=== PATIENT | male | born 1995 | race Caucasian/White ===

== ENCOUNTER → 2017-07-03 08:52 | Outpatient (CLI) | payer OTHER, SELFPAY ==
[2017-07-03 10:51] LABS: ALB/GLOB Ratio 1.2 RATIO (0.9-2.4); AST(SGOT) 19 U/L (15-37); Alanine Aminotransfer ALT/SGPT 39 U/L (16-61); Alkaline Phosphatase 147 U/L (45-117); Anion Gap 7 (5-15); BUN 24 mg/dL (7-18); BUN/Creat Ratio 27.6 RATIO (10-20); Calcium,Total 8.8 mg/dL (8.5-10.1); Chloride 102 mmol/L (98-107); Creatinine, Serum 0.87 mg/dL (0.70-1.30); EST Glomerular Filtration Rate 117 mL/min (>60); Est Glom Filt Rate - Afr Amer 141 mL/min (>60); Globulin 3.4 g/dL (2.2-4.2); Glucose 313 mg/dL (74-106); Potassium 4.4 mmol/L (3.5-5.1); Protein, Total 7.4 g/dL (6.4-8.2); Sodium Level 138 mmol/L (136-145)
[2017-07-03 10:54] LABS: Hemoglobin A1c 9.2 % (4.2-6.3)
[2017-07-03 10:58] LABS: Microalbumin,Random Urine 6.4 mg/L (NO RANGE EST.); Microalbumin:Creatinine Ratio 11.6 mg/g CRE (<30 mg/g CRE)
== END ==
PROVIDERS: Family Provider Family Medicine; PCP Family Medicine; Visit Provider Nurse Practitioner
DX: E10.9 Type 1 diabetes mellitus without complications (principal)
CPT/HCPCS: 36415; 80053; 82043; 82570; 83036

== ENCOUNTER → 2018-04-28 15:56 | Outpatient (CLI) | payer OTHER, SELFPAY ==
[2018-04-28 15:09] VITALS: BMI 31.6
[2018-04-28 17:51] LABS: ALB/GLOB Ratio 1.2 RATIO (0.9-2.4); AST(SGOT) 19 U/L (15-37); Alanine Aminotransfer ALT/SGPT 32 U/L (16-61); Albumin, Serum 4.3 g/dL (3.2-5.0); Alkaline Phosphatase 153 U/L (45-117); Anion Gap 7 (5-15); BUN 18 mg/dL (7-18); BUN/Creat Ratio 20.8 RATIO (10-20); Calcium,Total 9.1 mg/dL (8.5-10.1); Chloride 104 mmol/L (98-107); Cholesterol 231 mg/dL (200); Creatinine, Serum 0.87 mg/dL (0.70-1.30); EST Glomerular Filtration Rate 117 mL/min (>60); Est Glom Filt Rate - Afr Amer 141 mL/min (>60); Globulin 3.5 g/dL (2.2-4.2); Glucose 216 mg/dL (74-106); High Density Lipoprotein 50 mg/dL; Protein, Total 7.8 g/dL (6.4-8.2); Sodium Level 140 mmol/L (136-145); Triglycerides 139 mg/dL; Very Low Density Lipoprotein 28 mg/dL (5-40)
[2018-04-28 17:59] LABS: Hemoglobin A1c 8.9 % (4.2-6.3)
[2018-04-28 18:06] LABS: Microalbumin,Random Urine 40.5 mg/L (NO RANGE EST.); Microalbumin:Creatinine Ratio 15.3 mg/g CRE (<30 mg/g CRE)
== END ==
PROVIDERS: Family Provider Family Medicine; PCP Family Medicine; Referring Provider Nurse Practitioner; Visit Provider Nurse Practitioner
DX: E10.65 Type 1 diabetes mellitus with hyperglycemia (principal)
CPT/HCPCS: 36415; 80053; 80061; 82043; 82570; 83036

== ENCOUNTER → 2018-12-31 14:16 | Outpatient (CLI) | payer OTHER, SELFPAY ==
[2018-12-30 16:13] VITALS: BMI 31.6
== END ==
PROVIDERS: Family Provider Family Medicine; PCP Family Medicine; Referring Provider Physician Assistant; Visit Provider Physician Assistant
DX: J02.9 Acute pharyngitis, unspecified (principal)
CPT/HCPCS: 87070

== ENCOUNTER → 2019-06-13 15:47 | Outpatient (CLI) | payer OTHER, SELFPAY ==
[2018-12-30 16:13] VITALS: BMI 31.6
--- NOTE | 2019-06-13 15:51 | RAD_ITS ---
STUDY: X-RAY - LEFT ANKLE REASON FOR EXAM: Male, 23 years old. FALL, LATERAL PAIN TECHNIQUE: 3 view(s) of the ankle. COMPARISON: None. FINDINGS: Normal visualized distal tibia and fibula. Normal medial and lateral malleoli. Normal tibiotalar articulation and ankle mortise. Normal visualized talus and calcaneus. The visualized subtalar, talonavicular, calcaneocuboid and tarsal articulations are normal. There is no demonstrated fracture. There is diffuse soft tissue swelling of the distal calf and ankle. RAD/Ankle min 3 Views IMPRESSION: Nonspecific soft tissue swelling otherwise unremarkable x-ray examination of the ankle. Electronically Signed: Lelo Hardy MD at 0:23 EDT , Service support ,
[2019-06-13 18:21] LABS: Hemoglobin A1c 8.6 % (4.2-6.3)
[2019-06-13 18:25] LABS: Microalbumin,Random Urine 9.7 mg/L (NO RANGE EST.)
[2019-06-13 18:30] LABS: ALB/GLOB Ratio 1.1 RATIO (0.9-2.4); AST(SGOT) 19 U/L (15-37); Alanine Aminotransfer ALT/SGPT 33 U/L (16-61); Albumin, Serum 4.1 g/dL (3.2-5.0); Alkaline Phosphatase 149 U/L (45-117); Anion Gap 4 (5-15); BUN 17 mg/dL (7-18); BUN/Creat Ratio 19.3 RATIO (10-20); Calcium,Total 9.3 mg/dL (8.5-10.1); Chloride 107 mmol/L (98-107); Cholesterol 229 mg/dL (200); Creatinine, Serum 0.88 mg/dL (0.70-1.30); EST Glomerular Filtration Rate 113 mL/min (>60); Est Glom Filt Rate - Afr Amer 137 mL/min (>60); Globulin 3.6 g/dL (2.2-4.2); Glucose 236 mg/dL (74-106); High Density Lipoprotein 42 mg/dL; Potassium 3.8 mmol/L (3.5-5.1); Protein, Total 7.7 g/dL (6.4-8.2); Sodium Level 137 mmol/L (136-145); Triglycerides 235 mg/dL; Very Low Density Lipoprotein 47 mg/dL (5-40)
== END ==
PROVIDERS: PCP Family Medicine; Referring Provider Surgery; Visit Provider Surgery
DX: E10.65 Type 1 diabetes mellitus with hyperglycemia (principal); M25.572 Pain in left ankle and joints of left foot; S93.402A Sprain of unspecified ligament of left ankle, initial encounter; X58.XXXA Exposure to other specified factors, initial encounter; Y93.9 Activity, unspecified; Y92.9 Unspecified place or not applicable; Y99.9 Unspecified external cause status
CPT/HCPCS: 36415; 73610; 80053; 80061; 82043; 83036

== ENCOUNTER → 2020-10-30 15:45 | Outpatient (CLI) | payer OTHER, SELFPAY ==
[2020-10-30 17:24] LABS: ALB/GLOB Ratio 1.1 RATIO (0.9-2.4); AST(SGOT) 17 U/L (15-37); Alanine Aminotransfer ALT/SGPT 27 U/L (16-61); Albumin, Serum 4.2 g/dL (3.2-5.0); Alkaline Phosphatase 133 U/L (45-117); Anion Gap 7 (5-15); BUN 19 mg/dL (7-18); BUN/Creat Ratio 22.4 RATIO (10-20); Calcium,Total 9.3 mg/dL (8.5-10.1); Chloride 106 mmol/L (98-107); Cholesterol 202 mg/dL (200); Creatinine, Serum 0.85 mg/dL (0.70-1.30); EST Glomerular Filtration Rate 117 mL/min (>60); Est Glom Filt Rate - Afr Amer 141 mL/min (>60); Globulin 3.7 g/dL (2.2-4.2); Glucose 158 mg/dL (74-106); High Density Lipoprotein 46 mg/dL; Potassium 3.9 mmol/L (3.5-5.1); Protein, Total 7.9 g/dL (6.4-8.2); Sodium Level 139 mmol/L (136-145); Thyroid Stim Hormone (TSH) 2.76 uIU/mL (0.358-3.74); Triglycerides 72 mg/dL; Very Low Density Lipoprotein 14 mg/dL (5-40)
[2020-10-30 17:30] LABS: Microalbumin,Random Urine 24.5 mg/L (NO RANGE EST.); Microalbumin:Creatinine Ratio 18.4 mg/g CRE (<30 mg/g CRE)
== END ==
PROVIDERS: PCP Family Medicine; Referring Provider Internal Medicine Endocrinology, Diabetes & Metabolism; Visit Provider Internal Medicine Endocrinology, Diabetes & Metabolism
DX: E10.65 Type 1 diabetes mellitus with hyperglycemia (principal); E78.2 Mixed hyperlipidemia; E55.9 Vitamin D deficiency, unspecified
CPT/HCPCS: 36415; 80053; 80061; 82043; 82306; 82570; 84443

== ENCOUNTER 2021-07-31 23:22 | Inpatient (IN) | payer OTHER, SELFPAY ==
[2021-07-31 23:23] VITALS: BP 149/89; PULSE 130; RESP 18; TEMP 36.7; O2SAT 99; BMI 29.2
[2021-08-01] VITALS (30 sets, daily range): BP systolic 102–157; BP diastolic 54–109; PULSE 82–120; RESP 14–25; TEMP 35.9–37.1; O2SAT 97–100; BMI 28.9
--- NOTE | 2021-08-01 00:39 | EX.ED.DYSGE1 ---
HPI History of Present Illness Chief Complaint: Nausea/Vomiting Narrative Narrative: Patient is a 25-year-old male who is a type I diabetic who uses an insulin pump. He states this early evening he noted some generalized abdominal discomfort which then progressed to 5-6 episodes of vomiting about 1 hour prior to arrival. Patient states his pump's been functioning as it should but with his symptoms today he has been unable to keep his sugar under control. He states he was in DKA about 10 years ago and has concerned he is developing this once again and therefore comes in for evaluation. He denies any known sick contacts any fevers chills diarrhea or dysuria. [facility] Medical History (Updated 08/01/21 @ 05:[address] Blake Ames DO) Diabetes type 1, controlled H/O emotional problems Hepatitis High cholesterol Lipohypertrophy Presence of insulin pump Home Medications glucagon (human recombinant) 1 mg injection kit (Glucagon Emergency Kit (human-recomb)) 1 mg IM ONCE 05/27/17 [History Last Taken Unknown] Contour Next Test Strips (blood sugar diagnostic) #250 ea 05/11/18 [Rx Last Taken Unknown] flash glucose sensor (FreeStyle Severiano 14 Day Sensor) #2 ea 09/16/19 [Rx Last Taken Unknown] flash glucose scanning reader (FreeStyle Severiano 14 Day [place]) #2 ea 04/09/20 [Rx Last Taken Unknown] insulin lispro 100 unit/mL subcutaneous solution (Humalog U-100 Insulin) See Rx Instructions subcut QDAY e10.9 #9 mL 03/12/21 [Rx Last Taken Unknown] venlafaxine 150 mg capsule,extended release 24 hr (Effexor XR) 150 mg PO Check with primary doctor 08/01/21 [History Last Taken 07/31/21] Allergy/AdvReac Type Severity Reaction Status Date / Time No Known Allergies Allergy Verified 07/31/21 23:25 Family History Father Hypertension Chronic headaches Mother Thyroid disorder Depression Other CVA (cerebral vascular accident) Cancer Heart disease Surgical History H/O adenoidectomy History of placement of ear tubes Social History Smoking Status: Never smoker second hand exposure: No alcohol intake: current alcohol intake frequency: holidays/special occasions only substance use type: does not use what type of physical activity do you participate in: none ROS ROS ED Constitutional Constitutional ED: Denies chills or fever(s) ENT ENT ED: Denies sore throat Cardiovascular Cardiovascular: Denies chest pain Respiratory/Chest Respiratory/Chest: Denies cough or dyspnea Gastrointestinal Gastrointestinal: Reports abdominal pain, nausea and vomiting; Denies diarrhea Genitourinary Genitourinary ED: Denies dysuria Musculoskeletal Musculoskeletal: Denies myalgias Integumentary Denies rash Neurologic Neurologic: Denies headache(s) Hematologic/Lymphatic Hematologic/Lymphatic: Denies easy bleeding or easy bruising EXAM Physical Exam Const Vital Signs: 07/31/21 23:23 08/01/21 01:00 08/01/21 02:00 Temperature 98.0 F Temperature Source Temporal Pulse Rate 130 H 107 H 106 H Respiratory Rate 18 18 20 H Blood Pressure 149/89 H 114/58 L 148/72 H Blood Pressure Mean 109 76 97 Pulse Ox 99 100 100 Oxygen Delivery Method Room Air Room Air Room Air Positive well nourished and well developed General Appearance ED: well developed HEENT Reports dry mucous membranes Mouth ED: Yes dry mucous membranes Mouth: dry mucous membranes Eyes PERRL and EOMs intact bilaterally Neck supple Resp normal respiratory effort and clear to auscultation bilaterally Cardio regular rhythm Rate: tachycardic GI non-tender and non-distended Auscultation: hyperactive bowel sounds Palpation: soft Extremity normal to inspection Neuro oriented x3 and CN's II-XII intact bilaterally Sensorium / Orientation: alert Psych mental status grossly normal Skin no rashes or lesions noted and No skin turgor normal MDM MDM MDM Narrative Medical decision making narrative: Presented to the ER tachycardic but otherwise afebrile. He reported elevated blood sugars at home with bouts of vomiting and did have a remote history of DKA. Secondary to this there is concern for this developing once again and basic blood work was ordered. The patient's white count is drastically elevated at 23.5 with elevated absolute neutrophil count as well. This is most likely related to stress response from DKA but based on his report of abdominal pain prior to symptoms beginning I did elect to perform a chest x-ray and abdominal CT. X-ray revealed no obvious infiltrate and CT showed changes consistent with colitis but he has not been having any diarrhea. However based on the white count and the CT scan read he will be started on Zosyn. The patient's ABG does confirm acidosis with pH of 7.27 and his anion gap is elevated as well all consistent with DKA. Patient was given 2 L of fluid hydration and started on an insulin drip. He will be admitted to the ICU for further care. Lab Data Attestation: I reviewed the patient's lab results. Labs: Laboratory Results - last 24 hr 08/01/21 08/01/21 08/01/21 00:30 00:40 00:40 WBC 23.5 H RBC 5.67 Hgb 16.9 H Hct 50.8 MCV 89.6 MCH 29.8 MCHC 33.3 RDW Std Deviation 38.5 RDW Coeff of Alondra 11.7 Plt Count 271 MPV 10.6 Immature Gran % (Auto) 1.100 H Neut % (Auto) 83.8 H Lymph % (Auto) 8.7 L [place] % (Auto) 6.1 Eos % (Auto) 0.1 Baso % (Auto) 0.2 Absolute Neuts (auto) 19.7 H Absolute Lymphs (auto) 2.03 Nucleated RBC % 0 Sodium 133 L Potassium 4.7 Chloride 99 Carbon Dioxide 11.0 L Anion Gap 23 H BUN 21 H Creatinine 1.28 Estim Creat Clear Calc 79.61 Est GFR (MDRD) Af Amer 87 Est GFR (MDRD) Non-Af 72 BUN/Creatinine Ratio 16.4 Glucose 483 H* Lactic Acid Calcium 9.7 Total Bilirubin 0.90 Direct Bilirubin 0.36 H AST 15 ALT 28 Alkaline Phosphatase 185 H Total Protein 8.5 H Albumin 4.9 Globulin 3.6 Lipase 32 L Urine Color Urine Clarity Urine pH Ur Specific [place] Urine Protein Urine Glucose (UA) Urine Ketones Urine Occult Blood Urine Nitrite Urine Bilirubin Urine Urobilinogen Ur Leukocyte Esterase Urine RBC Urine WBC Ur Squamous Epith Cells Urine Bacteria Urine Mucus Acetone Level POC Glucose > 500 H* 08/01/21 08/01/21 08/01/21 00:40 00:40 00:54 WBC RBC Hgb Hct MCV MCH MCHC RDW Std Deviation RDW Coeff of Alondra Plt Count MPV Immature Gran % (Auto) Neut % (Auto) Lymph % (Auto) [place] % (Auto) Eos % (Auto) Baso % (Auto) Absolute Neuts (auto) Absolute Lymphs (auto) Nucleated RBC % Sodium Potassium Chloride Carbon Dioxide Anion Gap BUN Creatinine Estim Creat Clear Calc Est GFR (MDRD) Af Amer Est GFR (MDRD) Non-Af BUN/Creatinine Ratio Glucose Lactic Acid 5.5 H* Calcium Total Bilirubin Direct Bilirubin AST ALT Alkaline Phosphatase Total Protein Albumin Globulin Lipase Urine Color Yellow Urine Clarity Clear Urine pH 5.0 Ur Specific [place] 1.020 Urine Protein 30 H Urine Glucose (UA) 1000 H Urine Ketones 150 A* Urine Occult Blood Negative Urine Nitrite Negative Urine Bilirubin Negative Urine Urobilinogen Normal Ur Leukocyte Esterase Negative Urine RBC 0 SEEN Urine WBC 0 SEEN Ur Squamous Epith Cells 0 SEEN Urine Bacteria 0 SEEN Urine Mucus 0 SEEN Acetone Level MODERATE H POC Glucose ABG Data ABG results: ABG 08/01/21 00:48 Specimen Type ART Sample Site L Radial pH 7.28 L Bicarbonate Actual 9.6 L Total CO2 10 Base Excess -17 L O2 Saturation 98 ABG pCO2 20.6 L ABG pO2 114 H Bryn Test Positive O2 Delivery Device Room Air Radiography Diagnostic Testing: Clinical Impression(s) from Imaging Studies Abdomen/Pelvis CT 08/01/21 01:01 IMPRESSION: Acute colitis involving predominantly the ascending through transverse colon, most likely inflammatory or infectious etiology. Electronically Signed: Suzette Barfield MD at 2:01 EDT , Chest X-Ray 08/01/21 01:01 IMPRESSION: No acute pulmonary disease. Electronically Signed: Manuel Batres MD at 2:04 EDT , 1 view chest x-ray as interpreted by the emergency medicine physician reveals no acute infiltrate pneumothorax or pleural effusion Critical Care Time Critical Care Time: Yes Critical care time (excluding procedures): - (Please note critical care time of 33 minutes) Discharge Plan Dx/Rx/DC Orders Clinical Impression: DKA (diabetic ketoacidoses), Nausea and vomiting, Dehydration Disposition Disposition: [facility] Discharge Date/Time: 08/01/21 04:02
[2021-08-01] MEDS: Ondansetron 4 MG/2 ML Vial IV ×2 (00:44→03:00)
[2021-08-01] MEDS: 0.9% Normal Saline 1,000 ML 999 ML IV ×2 (00:44→02:03)
[2021-08-01 00:56] LABS: Allen Test Positive; Base Excess -17 mmol/L (-2 to +2); Bicarbonate 9.6 mmol/L (22-26); Blood Gas Specimen Type ART; O2 Delivery Device Room Air; PO2 114 mmHG (75-100); SITE L Radial; SO2 98 % (95-99); Total Carbon Dioxide 10 mmol/L; pCO2 20.6 mmHg (35-45); pH 7.28 (7.35-7.45)
[2021-08-01 00:56] LABS: Absolute Lymphocyte Count 2.03 X10^3/uL (0.83-4.51); Absolute Neutrophil Count 19.7 X10^3/uL (2.0-7.7); Basophil# 0.05 X10^3/uL; Basophil% 0.2 % (0-1); Eosinophil# 0.02 X10^3/uL; Eosinophils% 0.1 % (0-5); Hematocrit 50.8 % (40-54); Hemoglobin 16.9 g/dL (13.0-16.5); Lymphocyte # 2.03 X10^3/ul (0.83-4.51); Lymphocyte % 8.7 % (19-41); Mean Corp Hgb Conc 33.3 g/dL (32-36); Mean Corpuscular Hgb 29.8 pg (27.0-32.0); Mean Corpuscular Volume 89.6 fL (80-94); Mean Platelet Vol. 10.6 fl (6.2-12.0); Monocyte# 1.42 X10^3/uL; Monocyte% 6.1 % (0-10); NRBC Flagged by Analyzer 0 % (0-5); Neutrophil # 19.69 X10^3/uL (2.7-7.7); Neutrophil % 83.8 % (47-70); Platelet Count 271 K/mm3 (150-450); RBC Distribution Width CV 11.7 % (11.6-14.6); RBC Distribution Width SD 38.5 fl (35.1-43.9); Red Blood Count 5.67 M/mm3 (4.6-6.2); White Blood Count 23.5 K/mm3 (4.4-11.0)
[2021-08-01 00:59] LABS: Bacteria 0 SEEN /hpf (None Seen); Mucous, Urine 0 SEEN /hpf (<or=2+); Red Blood Cells-Urine 0 SEEN /hpf (0-5); Squamous Epithelial Cells - UA 0 SEEN /hpf (0-5); White Blood Cells 0 SEEN /hpf (0-5)
[2021-08-01 01:00] LABS: Color, Urine Yellow (Yellow); Glucose, Dipstick 1000 mg/dl (Normal); Leukocyte Esterase-Dipstick Negative /ul (Negative); Nitrite-Dipstick Negative (Negative); Occult Blood-Urine Negative /ul (Negative); Protein-Dipstick 30 mg/dl (Negative); Urine Bilirubin Dipstick Negative (Negative); Urine Clarity Clear (Clear); Urine Urobilinogen Normal (Normal)
--- NOTE | 2021-08-01 01:01 | RAD_ITS ---
INDICATION: cough EXAMINATION: Frontal view of the chest COMPARISON: None. FINDINGS: Frontal view of the chest was obtained. The cardiac silhouette is not enlarged. No confluent airspace disease. No pneumothorax. RAD/Chest 1 View (Portable) IMPRESSION: No acute pulmonary disease. Electronically Signed: Manuel Batres MD at 2:04 EDT ,
--- NOTE | 2021-08-01 01:01 | CT_ITS ---
STUDY: CT ABDOMEN AND PELVIS WITH CONTRAST REASON FOR EXAM: Male, 25 years old. abd pain RADIATION DOSAGE (If Supplied By Facility): CTDIvol = ( 14.07 ) mGy, DLP = ( 962.82 ) mGycm TECHNIQUE: Transaxial images were obtained from the dome of the diaphragm to the symphysis pubis without oral contrast. ISOVUE 300 100ml was administered. Sagittal and coronal images were reconstructed. Individualized dose optimization techniques were used for this CT. COMPARISON: None. FINDINGS: LOWER CHEST: Unremarkable. LIVER: Unremarkable. GALLBLADDER/BILE DUCTS: Unremarkable. PANCREAS: Unremarkable. SPLEEN: Unremarkable. ADRENAL GLANDS: Unremarkable. KIDNEYS / URETERS: Unremarkable. BOWEL / MESENTERY: Colonic wall thickening from the ascending through mid descending colon. Mild adjacent stranding. No bowel obstruction. Prominent lymph nodes in the mesentery. APPENDIX: Identified and normal. No evidence of acute appendicitis. PERITONEUM: No free air. No free fluid. VESSELS: Abdominal aorta is normal caliber. RETROPERITONEUM: A few prominent retroperitoneal lymph nodes. REPRODUCTIVE ORGANS: Unremarkable. BLADDER: Unremarkable. ABDOMINAL WALL: Unremarkable. BONES: No acute abnormality. OTHER: None. CT/Abdomen/Pelvis W IV Cont ONLY IMPRESSION: Acute colitis involving predominantly the ascending through transverse colon, most likely inflammatory or infectious etiology. Electronically Signed: Suzette Barfield MD at 2:01 EDT ,
[2021-08-01 01:11] LABS: AST(SGOT) 15 U/L (15-37); Alanine Aminotransfer ALT/SGPT 28 U/L (16-61); Albumin, Serum 4.9 g/dL (3.2-5.0); Alkaline Phosphatase 185 U/L (45-117); Anion Gap 23 (5-15); BUN 21 mg/dL (7-18); BUN/Creat Ratio 16.4 RATIO (10-20); Bilirubin, Direct 0.36 mg/dL (0.00-0.30); Calcium,Total 9.7 mg/dL (8.5-10.1); Chloride 99 mmol/L (98-107); Creatinine, Serum 1.28 mg/dL (0.70-1.30); EST Glomerular Filtration Rate 72 mL/min (>60); Est Glom Filt Rate - Afr Amer 87 mL/min (>60); Estimated Creatinine Clearance 79.61 ml/min; Globulin 3.6 g/dL (2.2-4.2); Glucose 483 mg/dL (74-106); Lipase 32 U/L (73-393); Potassium 4.7 mmol/L (3.5-5.1); Protein, Total 8.5 g/dL (6.4-8.2); Sodium Level 133 mmol/L (136-145)
[2021-08-01 01:31] LABS: Bedside Glucose > 500 mg/dL (74-106)
[2021-08-01 01:34] LABS: Lactic Acid 5.5 mmol/L (0.4-1.9)
[2021-08-01 02:02] LABS: Ketone-Dipstick 150 mg/dl (Negative)
--- NOTE | 2021-08-01 03:03 | PCM.HP.STD ---
HPI - General General Date of Admission: 08/01/21 Date of Service: 08/01/21 Chief Complaint: Nausea and vomiting HPI Narrative ASHLEY FERRARI, is a 25 M with a known history of type 1 diabetes on an insulin pump who presented to the emergency department at [facility] with generalized abdominal discomfort which progressed to nausea and vomiting this evening. States the abdominal pain started earlier today and has had 5-6 episodes of emesis prior to coming to the emergency department. He states that his insulin pump has been functioning well however when I questioned him he states his site might be bad. He indicates his last hemoglobin's A1c was in the 7 range. He follows with Dr. Jimenez as an outpatient. His last Depakote sewed of DKA was approximately 10 years ago. He denies any sick contacts, fevers, chills, diarrhea, dysuria, hematemesis or coffee-ground emesis. On presentation to the emergency department his temperature was 98.0, heart rate was 130, blood pressure is 149/89, respiratory rate 18, and oxygen saturations 99 to 100% on room air. His CBC shows a marked leukocytosis and erythrocytosis with a white count of 23.5 and a hemoglobin of 16.9. He does have a left shift. ABG showed a pH of 7.28 with a serum bicarb of 9.6/PCO2 of 20.6 and PO2 of 114 on room air. His chemistry panel showed mild hyponatremia with a sodium of 133 a serum bicarb of 11, and anion gap of 23, a BUN of 21, a serum creatinine of 1.28, lactic acid of 5.5, and a serum glucose of 4.83. His LFTs were within normal limits and his lipase was 32. His UA was unremarkable other than glucose urea and elevated ketones. His acetone level in his blood was moderate. His chest x-ray showed no acute pulmonary disease. Given his abdominal pain, a CT of his abdomen and pelvis was performed and showed acute colitis involving predominantly the ascending through transverse colon with changes consistent with inflammation or infectious etiology. In the emergency department he was given IV fluids and started on an insulin drip. His nausea vomiting was also treated with antiemetics. [facility] Medical History (Updated 08/01/21 @ 03:[address] Carole Chao DO) Diabetes type 1, controlled H/O emotional problems Hepatitis High cholesterol Lipohypertrophy Presence of insulin pump Home Medications glucagon (human recombinant) 1 mg injection kit (Glucagon Emergency Kit (human-recomb)) 1 mg IM ONCE 05/27/17 [History Last Taken Unknown] Contour Next Test Strips (blood sugar diagnostic) #250 ea 05/11/18 [Rx Last Taken Unknown] flash glucose sensor (FreeStyle Severiano 14 Day Sensor) #2 ea 09/16/19 [Rx Last Taken Unknown] flash glucose scanning reader (FreeStyle Severiano 14 Day [place]) #2 ea 04/09/20 [Rx Last Taken Unknown] insulin lispro 100 unit/mL subcutaneous solution (Humalog U-100 Insulin) See Rx Instructions subcut QDAY e10.9 #9 mL 03/12/21 [Rx Last Taken Unknown] Allergy/AdvReac Type Severity Reaction Status Date / Time No Known Allergies Allergy Verified 07/31/21 23:25 Family History Father Hypertension Chronic headaches Mother Thyroid disorder Depression Other CVA (cerebral vascular accident) Cancer Heart disease Surgical History H/O adenoidectomy History of placement of ear tubes Social History Smoking Status: Never smoker second hand exposure: No alcohol intake: current alcohol intake frequency: holidays/special occasions only substance use type: does not use what type of physical activity do you participate in: none ROS Constitutional Constitutional: Denies anorexia, change in weight, chills, fatigue, fever(s), malaise, night sweats, weakness or other Eyes Eyes: Denies blurry vision, change in eye color, change in vision, discharge from eye(s), double vision, erythema, eye pain, loss of vision or other ENT HEENT: Denies abnormal hearing, dysphagia, ear pain, epistaxis, headache(s), hearing loss, nasal congestion, nasal discharge, post nasal drip, sinus pressure, sore throat or other Cardiovascular Cardiovascular: Denies chest pain, claudication, dyspnea on exertion, edema, lightheadedness, orthopnea, palpitations, paroxysmal nocturnal dyspnea, rapid heart rate, syncope or other Respiratory/Chest Respiratory/Chest: Denies cough, dyspnea, excessive phlegm production, hemoptysis, productive cough, shortness of breath at rest, shortness of breath with exertion, wheezing or other Gastrointestinal Gastrointestinal: Reports abdominal pain, nausea and vomiting; Denies coffee ground emesis, constipation, diarrhea, dyspepsia, hematemesis, hematochezia, loose stools, melena or other Genitourinary Genitourinary: Denies burning urination, difficulty urinating, dysuria, hematuria, nocturia, urinary frequency, urinary hesitancy, urinary incontinence, urinary urgency or other Musculoskeletal Musculoskeletal: Denies arthralgias, back pain, joint pain, joint stiffness, joint swelling, myalgias, neck pain or other Neurologic Neurologic: Denies abnormal gait, abnormal speech, confusion, disequilibrium, dizziness, focal weakness, headache(s), numbness, paresthesias, seizure-like activity, seizures, syncope, tingling, tremor(s) or other Psychiatric Psychiatric: Reports anxiety and depression; Denies homicidal ideation, suicidal ideation or other Endocrine Endocrinology: Denies change in body appearance, cold intolerance, excessive sweating, heat intolerance, polydipsia, polyuria or other Hematologic/Lymphatic Hematologic/Lymphatic: Denies anemia, easy bleeding, easy bruising, lymphadenopathy or other Allergic/Immunologic Allergic/Immunologic: Denies rhinitis, hives, eczemia, asthma or other Vital Signs Vital Signs Vital Signs: 07/31/21 23:23 08/01/21 01:00 08/01/21 02:00 Temperature 98.0 F Temperature Source Temporal Pulse Rate 130 H 107 H 106 H Respiratory Rate 18 18 20 H Blood Pressure 149/89 H 114/58 L 148/72 H Blood Pressure Mean 109 76 97 Pulse Ox 99 100 100 Oxygen Delivery Method Room Air Room Air Room Air Weight Weight: 82 kg Body Mass Index (BMI) 29.2 Physical Exam Const alert, oriented x3 and well nourished Constitutional Narrative: Young white male sitting up on the edge of the bed, has just had an emesis, parents at the bedside, patient appears ill but nontoxic General Appearance: cooperative HEENT normocephalic, head/scalp atraumatic and hearing grossly normal bilaterally HEENT Narrative: Mucous membranes appear dry, Mallampati is 2-3, no thrush Eyes PERRL, EOMs intact bilaterally and conjunctivae normal Eyes Narrative: No scleral icterus Neck no lymphadenopathy, supple and no JVD Neck Narrative: Trachea midline, no thyroid enlargement Resp normal respiratory effort, no retractions, no use of accessory muscles and clear to auscultation bilaterally Auscultation: Negative for crackles, rales, rhonchi or wheezes Cardio regular rhythm, S1 normal heart sound, S2 normal heart sound, no murmurs, no rub, no gallops, no clicks and no JVD Cardio Narrative: Tachycardia-mild GI normal to inspection, nondistended, normoactive bowel sounds, soft to palpation, non-tender and non-distended; Negative for hepatosplenomegaly Extremity no clubbing, cyanosis or edema Skin no rashes or lesions noted, no wounds, skin turgor normal, no jaundice, no petechiae and no mottling Neuro oriented x3, CN's II-XII intact bilaterally, moves all extremities and no focal motor deficits Neuro Narrative: No sensory deficits Sensorium / Orientation: awake and alert Speech: speech normal Motor Exam: strength 5/5 throughout Psych Psych Narrative: Affect is flat and mood seems to be somewhat depressed Mood & Affect: depressed Results Lab / Micro Data Result Diagrams: 08/01/21 00:40 08/01/21 00:40 Labs: Laboratory Results - last 24 hr 08/01/21 00:30: POC Glucose > 500 H* 08/01/21 00:40: WBC 23.5 H, RBC 5.67, Hgb 16.9 H, Hct 50.8, MCV 89.6, MCH 29.8, MCHC 33.3, RDW Std Deviation 38.5, RDW Coeff of Alondra 11.7, Plt Count 271, MPV 10.6, Immature Gran % (Auto) 1.100 H, Neut % (Auto) 83.8 H, Lymph % (Auto) 8.7 L, [place] % (Auto) 6.1, Eos % (Auto) 0.1, Baso % (Auto) 0.2, Absolute Neuts (auto) 19.7 H, Absolute Lymphs (auto) 2.03, Nucleated RBC % 0 08/01/21 00:40: Sodium 133 L, Potassium 4.7, Chloride 99, Carbon Dioxide 11.0 L, Anion Gap 23 H, BUN 21 H, Creatinine 1.28, Estim Creat Clear Calc 79.61, Est GFR (MDRD) Af Amer 87, Est GFR (MDRD) Non-Af 72, BUN/Creatinine Ratio 16.4, Glucose 483 H*, Calcium 9.7, Total Bilirubin 0.90, Direct Bilirubin 0.36 H, AST 15, ALT 28, Alkaline Phosphatase 185 H, Total Protein 8.5 H, Albumin 4.9, Globulin 3.6, Lipase 32 L 08/01/21 00:40: Acetone Level MODERATE H 08/01/21 00:40: Lactic Acid 5.5 H* 08/01/21 00:54: Urine Color Yellow, Urine Clarity Clear, Urine pH 5.0, Ur Specific [place] 1.020, Urine Protein 30 H, Urine Glucose (UA) 1000 H, Urine Ketones 150 A*, Urine Occult Blood Negative, Urine Nitrite Negative, Urine Bilirubin Negative, Urine Urobilinogen Normal, Ur Leukocyte Esterase Negative, Urine RBC 0 SEEN, Urine WBC 0 SEEN, Ur Squamous Epith Cells 0 SEEN, Urine Bacteria 0 SEEN, Urine Mucus 0 SEEN ABG Data ABG results: ABG 08/01/21 00:48 Specimen Type ART Sample Site L Radial pH 7.28 L Bicarbonate Actual 9.6 L Total CO2 10 Base Excess -17 L O2 Saturation 98 ABG pCO2 20.6 L ABG pO2 114 H Bryn Test Positive O2 Delivery Device Room Air Radiology Impression Abdomen/Pelvis CT 08/01/21 01:01 IMPRESSION: Acute colitis involving predominantly the ascending through transverse colon, most likely inflammatory or infectious etiology. Electronically Signed: Suzette Barfield MD at 2:01 EDT , Chest X-Ray 08/01/21 01:01 IMPRESSION: No acute pulmonary disease. Electronically Signed: Manuel Batres MD at 2:04 EDT , Assessment & Plan Assessment/Plan (1) Presence of insulin pump: (2) Diabetes mellitus type 1, uncontrolled, insulin dependent: QUALIFIERS: Glycemic state: with hyperglycemia Qualified Code(s): E10.65 - Type 1 diabetes mellitus with hyperglycemia (3) DKA (diabetic ketoacidoses): (4) Colitis: (5) Lactic acidosis: (6) Dehydration: (7) Nausea and vomiting: (8) Leukocytosis: (9) Erythrocytosis: PLAN: Plan DKA -DKA order set in place -Etiology unclear at this time whether to be related to colitis or malfunction of pump placement -IV fluids per order set -Insulin drip at 0.1 units/kg -N.p.o. except for ice chips -Electrolyte replacement protocol -Discontinue insulin pump for now Leukocytosis -Suspect reactive and related to dehydration however patient with acute colitis on his CT scan -Blood cultures pending -We will start Zosyn given abnormal findings on CT Erythrocytosis -Likely related to dehydration -Repeat CBC in a.m. Lactic acidosis -5.5 at the time of admission -May be related to volume status however findings on CT could precipitate this as well -Abdominal exam is benign at this time -Repeat lactic acid per protocol -Highly doubt sepsis Dehydration -IV fluids -Trend lab Colitis -CT of the abdomen pelvis suggestive of colitis inflammatory versus infectious -Abdominal exam at the time of my evaluation was benign -We will start Zosyn as infectious work-up is pending -Monitor abdominal exams DM-1 -No recent documented hemoglobin A1c in our records -Patient indicates his most recent hemoglobin A1c was in the sevens -Outpatient follow-up with Dr. Jimenez after discharge -Reinitiate insulin pump once appropriate DVT prophylaxis -Lovenox CODE STATUS -Full code Charges/Coding Visit Charges Inpatient E&M: 90622 Init Hosp L3
[2021-08-01 03:36] LABS: Bedside Glucose 462 mg/dL (74-106)
[2021-08-01 04:05] LABS: Bedside Glucose 373 mg/dL (74-106)
[2021-08-01] MEDS: 0.9% Normal Saline 1,000 ML 250 ML IV (04:23)
[2021-08-01 04:50] LABS: Reflex Lactate? Y
[2021-08-01] MEDS: 0.9% Saline Lock 10 ML Syringe IV (05:07)
[2021-08-01] MEDS: Morphine 4 MG/ML Syringe IV (05:07)
[2021-08-01 05:13] LABS: ALB/GLOB Ratio 1.3 RATIO (0.9-2.4); AST(SGOT) 22 U/L (15-37); Alanine Aminotransfer ALT/SGPT 33 U/L (16-61); Albumin, Serum 4.7 g/dL (3.2-5.0); Alkaline Phosphatase 171 U/L (45-117); Anion Gap 19 (5-15); BUN 19 mg/dL (7-18); BUN/Creat Ratio 17.1 RATIO (10-20); Calcium,Total 8.4 mg/dL (8.5-10.1); Chloride 107 mmol/L (98-107); Creatinine, Serum 1.11 mg/dL (0.70-1.30); EST Glomerular Filtration Rate 85 mL/min (>60); Est Glom Filt Rate - Afr Amer 103 mL/min (>60); Globulin 3.5 g/dL (2.2-4.2); Glucose 344 mg/dL (74-106); Magnesium 1.9 mg/dL (1.6-2.6); Protein, Total 8.2 g/dL (6.4-8.2); Sodium Level 136 mmol/L (136-145)
[2021-08-01 05:39] LABS: Absolute Lymphocyte Count 1.67 X10^3/uL (0.83-4.51); Absolute Neutrophil Count 19.1 X10^3/uL (2.0-7.7); Basophil# 0.03 X10^3/uL; Basophil% 0.1 % (0-1); Eosinophil# 0.02 X10^3/uL; Eosinophils% 0.1 % (0-5); Hematocrit 46.9 % (40-54); Hemoglobin 15.7 g/dL (13.0-16.5); Lymphocyte # 1.67 X10^3/ul (0.83-4.51); Lymphocyte % 7.6 % (19-41); Mean Corp Hgb Conc 33.5 g/dL (32-36); Mean Corpuscular Hgb 30.6 pg (27.0-32.0); Mean Corpuscular Volume 91.4 fL (80-94); Mean Platelet Vol. 10.3 fl (6.2-12.0); Monocyte% 4.1 % (0-10); NRBC Flagged by Analyzer 0 % (0-5); Neutrophil # 19.14 X10^3/uL (2.7-7.7); Neutrophil % 86.8 % (47-70); Platelet Count 228 K/mm3 (150-450); RBC Distribution Width CV 11.9 % (11.6-14.6); RBC Distribution Width SD 39.5 fl (35.1-43.9); Red Blood Count 5.13 M/mm3 (4.6-6.2)
[2021-08-01 05:46] LABS: Bedside Glucose 325 mg/dL (74-106)
[2021-08-01 06:05] LABS: Lactic Acid 2.1 mmol/L (0.4-1.9)
[2021-08-01 06:20] LABS: Bedside Glucose 279 mg/dL (74-106)
[2021-08-01 07:09] LABS: Phosphorus 4.3 mg/dL (2.5-4.9)
[2021-08-01 07:20] LABS: Bedside Glucose 231 mg/dL (74-106)
[2021-08-01] MEDS: Dext 5%-0.45% NS 1,000 ML 150 ML IV (07:33)
[2021-08-01 08:16] LABS: Bedside Glucose 232 mg/dL (74-106)
[2021-08-01 08:38] LABS: Anion Gap 10 (5-15); BUN 18 mg/dL (7-18); BUN/Creat Ratio 15.1 RATIO (10-20); Calcium,Total 8.3 mg/dL (8.5-10.1); Chloride 111 mmol/L (98-107); Creatinine, Serum 1.19 mg/dL (0.70-1.30); EST Glomerular Filtration Rate 79 mL/min (>60); Est Glom Filt Rate - Afr Amer 95 mL/min (>60); Estimated Creatinine Clearance 85.63 ml/min; Glucose 241 mg/dL (74-106); Potassium 5.2 mmol/L (3.5-5.1); Sodium Level 137 mmol/L (136-145)
[2021-08-01 09:16] LABS: Bedside Glucose 232 mg/dL (74-106)
[2021-08-01 09:37] LABS: Reflex Lactate? Y
[2021-08-01] MEDS: Enoxaparin 40 MG/0.4 ML Syringe SC (10:12)
[2021-08-01 10:20] LABS: Bedside Glucose 257 mg/dL (74-106)
[2021-08-01 11:10] LABS: Bedside Glucose 235 mg/dL (74-106)
[2021-08-01 12:10] LABS: Bedside Glucose 218 mg/dL (74-106)
[2021-08-01 12:33] LABS: Anion Gap 8 (5-15); BUN 17 mg/dL (7-18); Calcium,Total 8.1 mg/dL (8.5-10.1); Chloride 110 mmol/L (98-107); Creatinine, Serum 1.13 mg/dL (0.70-1.30); EST Glomerular Filtration Rate 83 mL/min (>60); Est Glom Filt Rate - Afr Amer 101 mL/min (>60); Estimated Creatinine Clearance 90.18 ml/min; Glucose 244 mg/dL (74-106); Potassium 4.5 mmol/L (3.5-5.1); Sodium Level 136 mmol/L (136-145)
--- NOTE | 2021-08-01 13:15 | CASEMGMT ---
RN LIANNA Face to Face with patient for initial transition planning/care coordination assessment. RN CM introduced self and role at [facility]. Patient lying in bed, alert and oriented, mother at bedside. Patient willing to participate in assessment and is able to answer all questions appropriately. Care providers, pharmacy, and demographics verified. Patient wishes to discharge home, denies need for home health at this time. Patient states he has no further needs or concerns at this time. CM to follow for discharge planning needs that may arise. PCP: Eliel Specialists: [facility] medical assistant, patient is seeking different hospital medical assistant Preferred [facility]acy: [facility] Insurance: [employer] Prescription Benefit: yes Living Will/HPOA: none LNOK: parents Living Arrangements: Patient lives with parents in a single story home. Patient states he is independent and able to ambulate stairs. Transportation: self, parents DME/HHC: Patient states he has glucometer with supplies, insulin pump and supplies at home. Patient denies pervious HHC. Disposition Plan: Patient to discharge home with family support and follow-up plans in place. Leonila GEIGER, RN, CM
[2021-08-01 14:01] LABS: Bedside Glucose 184 mg/dL (74-106)
--- NOTE | 2021-08-01 14:14 | NURSING ---
Pt gave self 10 units insulin via insulin pump
[2021-08-01] MEDS: Phenol/Sodium Phenolate 180ML 5 SPRAY MUCOUS MEM (14:47)
[2021-08-01 17:16] LABS: Bedside Glucose 379 mg/dL (74-106)
--- NOTE | 2021-08-01 17:40 | NURSING ---
patient gave self 10 units of insulin via insulin pump
[2021-08-01] MEDS: 0.9% Normal Saline 1,000 ML 125 ML IV (17:41)
--- NOTE | 2021-08-01 18:00 | PCM.CONS.GEN ---
Assessment & Plan Assessment/Plan (1) Colitis: PLAN: Diabetes mellitus is a systemic disease affecting the function of structure many organs occluding the GI tract. The differential diagnosis for nausea vomiting in the setting of DKA resulting in an inflammatory response in the colon. In particular sections of the colon involving the ascending or descending colon extending into the hepatic flexure or splenic flexure is most likely secondary to his ischemic colitis. He does not have any signs or symptoms of inflammatory bowel disease or infectious colitis. His risk factors for worsening of ischemic colitis would be worsening constipation, decreased blood pressure or development of pneumatosis. I do not see any signs of pneumatosis on imaging and he says that he has been going to the bathroom twice a day. His blood pressure is also very important part to make sure he does not develop any more ischemic colitis. There was also some shotty lymphadenopathy seen on CT scan which could indicate a mesenteric adenitis component along with an ongoing inflammatory bowel disease. Therefore we aim to keep a blood pressure of at least 100 systolic. I would recommend to check stool for fecal calprotectin, ESR, CRP, lactate. I am okay with him going on Flagyl for anaerobic coverage of bacteria in his gut. Typically he would go on steroid therapy. However he is in the hospital for DKA and is currently doing better from that standpoint. Therefore we will trend his labs and his physical examination along with repeat imaging. The #1 diagnosis at this time is ischemic colitis. HPI Consult Data Date of Consult: 08/01/21 HPI Narrative Reason for Consultation: colitis HPI Narrative: ASHLEY FERRARI, is a 25 M who presents with abdominal pain. He has a history of type 1 diabetes on an insulin pump who presented to the emergency department at [facility] with generalized abdominal discomfort which progressed to nausea and vomiting this evening.? He states the abdominal pain started earlier today and has had 5-6 episodes of emesis prior to coming to the emergency department.? He had a CT scan of the abdomen and pelvis that displayed acute colitis involving predominantly the ascending colon through the transverse colon. I was consulted because of abnormal CT scan. His white blood cell count is 22,000. He has been afebrile does have a history of acute hepatitis A. At this time is not having any abdominal pain, cramping, nausea or vomiting. He has not had any diarrhea in the last several months. He has no history of diarrhea prior to that. He denies any signs of bleeding per rectum. [facility] Medical History (Updated 08/01/21 @ 05:[address] Blake Ames DO) Diabetes type 1, controlled H/O emotional problems Hepatitis High cholesterol Lipohypertrophy Presence of insulin pump Home Medications glucagon (human recombinant) 1 mg injection kit (Glucagon Emergency Kit (human-recomb)) 1 mg IM ONCE 05/27/17 [History Last Taken Unknown] Contour Next Test Strips (blood sugar diagnostic) #250 ea 05/11/18 [Rx Last Taken Unknown] flash glucose sensor (FreeStyle Severiano 14 Day Sensor) #2 ea 09/16/19 [Rx Last Taken Unknown] flash glucose scanning reader (FreeStyle Severiano 14 Day [place]) #2 ea 04/09/20 [Rx Last Taken Unknown] insulin lispro 100 unit/mL subcutaneous solution (Humalog U-100 Insulin) See Rx Instructions subcut QDAY e10.9 #9 mL 03/12/21 [Rx Last Taken Unknown] venlafaxine 150 mg capsule,extended release 24 hr (Effexor XR) 150 mg PO Check with primary doctor 08/01/21 [History Last Taken 07/31/21] Allergy/AdvReac Type Severity Reaction Status Date / Time No Known Allergies Allergy Verified 07/31/21 23:25 Family History Father Hypertension Chronic headaches Mother Thyroid disorder Depression Other CVA (cerebral vascular accident) Cancer Heart disease Surgical History H/O adenoidectomy History of placement of ear tubes Social History Smoking Status: Never smoker second hand exposure: No alcohol intake: current alcohol intake frequency: holidays/special occasions only substance use type: does not use what type of physical activity do you participate in: none ROS Constitutional Constitutional: Denies anorexia, change in weight, chills, fatigue, fever(s), malaise, night sweats, weakness or other Eyes Eyes: Denies blurry vision, change in eye color, change in vision, discharge from eye(s), double vision, erythema, eye pain, loss of vision or other ENT HEENT: Denies abnormal hearing, dysphagia, ear pain, epistaxis, headache(s), hearing loss, nasal congestion, nasal discharge, post nasal drip, sinus pressure, sore throat or other Cardiovascular Cardiovascular: Denies chest pain, claudication, dyspnea on exertion, edema, lightheadedness, orthopnea, palpitations, paroxysmal nocturnal dyspnea, rapid heart rate, syncope or other Respiratory/Chest Respiratory/Chest: Denies cough, dyspnea, excessive phlegm production, hemoptysis, productive cough, shortness of breath at rest, shortness of breath with exertion, wheezing or other Gastrointestinal Gastrointestinal: Reports abdominal pain, nausea and vomiting; Denies coffee ground emesis, constipation, diarrhea, dyspepsia, hematemesis, hematochezia, loose stools, melena or other Genitourinary Genitourinary: Denies burning urination, difficulty urinating, dysuria, hematuria, nocturia, urinary frequency, urinary hesitancy, urinary incontinence, urinary urgency or other Musculoskeletal Musculoskeletal: Denies arthralgias, back pain, joint pain, joint stiffness, joint swelling, myalgias, neck pain or other Neurologic Neurologic: Denies abnormal gait, abnormal speech, confusion, disequilibrium, dizziness, focal weakness, headache(s), numbness, paresthesias, seizure-like activity, seizures, syncope, tingling, tremor(s) or other Psychiatric Psychiatric: Reports anxiety and depression; Denies homicidal ideation, suicidal ideation or other Endocrine Endocrinology: Denies change in body appearance, cold intolerance, excessive sweating, heat intolerance, polydipsia, polyuria or other Hematologic/Lymphatic Hematologic/Lymphatic: Denies anemia, easy bleeding, easy bruising, lymphadenopathy or other Allergic/Immunologic Allergic/Immunologic: Denies rhinitis, hives, eczemia, asthma or other Physical Exam Const alert, oriented x3 and well nourished Constitutional Narrative: Young white male sitting up on the edge of the bed, has just had an emesis, parents at the bedside, patient appears ill but nontoxic General Appearance: cooperative HEENT normocephalic, head/scalp atraumatic and hearing grossly normal bilaterally HEENT Narrative: Mucous membranes appear dry, Mallampati is 2-3, no thrush Eyes PERRL, EOMs intact bilaterally and conjunctivae normal Eyes Narrative: No scleral icterus Neck no lymphadenopathy, supple and no JVD Neck Narrative: Trachea midline, no thyroid enlargement Resp normal respiratory effort, no retractions, no use of accessory muscles and clear to auscultation bilaterally Auscultation: Negative for crackles, rales, rhonchi or wheezes Cardio regular rhythm, S1 normal heart sound, S2 normal heart sound, no murmurs, no rub, no gallops, no clicks and no JVD Cardio Narrative: Tachycardia-mild GI normal to inspection, nondistended, normoactive bowel sounds, soft to palpation, non-tender and non-distended; Negative for hepatosplenomegaly Extremity no clubbing, cyanosis or edema Skin no rashes or lesions noted, no wounds, skin turgor normal, no jaundice, no petechiae and no mottling Neuro oriented x3, CN's II-XII intact bilaterally, moves all extremities and no focal motor deficits Neuro Narrative: No sensory deficits Sensorium / Orientation: awake and alert Speech: speech normal Motor Exam: strength 5/5 throughout Psych Psych Narrative: Affect is flat and mood seems to be somewhat depressed Mood & Affect: depressed Lab / Micro Data Result Diagrams: 08/01/21 05:25 08/01/21 12:05 Labs: Laboratory Results - last 24 hr 08/01/21 00:30: POC Glucose > 500 H* 08/01/21 00:40: WBC 23.5 H, RBC 5.67, Hgb 16.9 H, Hct 50.8, MCV 89.6, MCH 29.8, MCHC 33.3, RDW Std Deviation 38.5, RDW Coeff of Alondra 11.7, Plt Count 271, MPV 10.6, Immature Gran % (Auto) 1.100 H, Neut % (Auto) 83.8 H, Lymph % (Auto) 8.7 L, [place] % (Auto) 6.1, Eos % (Auto) 0.1, Baso % (Auto) 0.2, Absolute Neuts (auto) 19.7 H, Absolute Lymphs (auto) 2.03, Nucleated RBC % 0 08/01/21 00:40: Sodium 133 L, Potassium 4.7, Chloride 99, Carbon Dioxide 11.0 L, Anion Gap 23 H, BUN 21 H, Creatinine 1.28, Estim Creat Clear Calc 79.61, Est GFR (MDRD) Af Amer 87, Est GFR (MDRD) Non-Af 72, BUN/Creatinine Ratio 16.4, Glucose 483 H*, Calcium 9.7, Total Bilirubin 0.90, Direct Bilirubin 0.36 H, AST 15, ALT 28, Alkaline Phosphatase 185 H, Total Protein 8.5 H, Albumin 4.9, Globulin 3.6, Lipase 32 L 08/01/21 00:40: Acetone Level MODERATE H 08/01/21 00:40: Lactic Acid 5.5 H* 08/01/21 00:54: Urine Color Yellow, Urine Clarity Clear, Urine pH 5.0, Ur Specific [place] 1.020, Urine Protein 30 H, Urine Glucose (UA) 1000 H, Urine Ketones 150 A*, Urine Occult Blood Negative, Urine Nitrite Negative, Urine Bilirubin Negative, Urine Urobilinogen Normal, Ur Leukocyte Esterase Negative, Urine RBC 0 SEEN, Urine WBC 0 SEEN, Ur Squamous Epith Cells 0 SEEN, Urine Bacteria 0 SEEN, Urine Mucus 0 SEEN 08/01/21 03:31: POC Glucose 462 H* 08/01/21 03:59: POC Glucose 373 H 08/01/21 04:35: Sodium 136, Potassium 5.0, Chloride 107, Carbon Dioxide 10.0 L, Anion Gap 19 H, BUN 19 H, Creatinine 1.11, Estim Creat Clear Calc 91.80, Est GFR (MDRD) Af Amer 103, Est GFR (MDRD) Non-Af 85, BUN/Creatinine Ratio 17.1, Glucose 344 H, Calcium 8.4 L, Magnesium 1.9, Total Bilirubin 0.70, AST 22, ALT 33, Alkaline Phosphatase 171 H, Total Protein 8.2, Albumin 4.7, Globulin 3.5, Albumin/Globulin Ratio 1.3, TSH 0.40 08/01/21 04:35: Phosphorus 4.3 08/01/21 05:10: POC Glucose 325 H 08/01/21 05:25: Lactic Acid 2.1 H* 08/01/21 05:25: WBC 22.0 H, RBC 5.13, Hgb 15.7, Hct 46.9, MCV 91.4, MCH 30.6, MCHC 33.5, RDW Std Deviation 39.5, RDW Coeff of Alondra 11.9, Plt Count 228, MPV 10.3, Immature Gran % (Auto) 1.300 H, Neut % (Auto) 86.8 H, Lymph % (Auto) 7.6 L, [place] % (Auto) 4.1, Eos % (Auto) 0.1, Baso % (Auto) 0.1, Absolute Neuts (auto) 19.1 H, Absolute Lymphs (auto) 1.67, Nucleated RBC % 0 08/01/21 06:11: POC Glucose 279 H 08/01/21 07:15: POC Glucose 231 H 08/01/21 08:04: POC Glucose 232 H 08/01/21 08:10: Sodium 137, Potassium 5.2 H, Chloride 111 H, Carbon Dioxide 16.0 L, Anion Gap 10, BUN 18, Creatinine 1.19, Estim Creat Clear Calc 85.63, Est GFR (MDRD) Af Amer 95, Est GFR (MDRD) Non-Af 79, BUN/Creatinine Ratio 15.1, Glucose 241 H, Calcium 8.3 L 08/01/21 09:10: POC Glucose 232 H 08/01/21 10:07: POC Glucose 257 H 08/01/21 11:03: POC Glucose 235 H 08/01/21 12:01: POC Glucose 218 H 08/01/21 12:05: Sodium 136, Potassium 4.5, Chloride 110 H, Carbon Dioxide 18.0 L, Anion Gap 8, BUN 17, Creatinine 1.13, Estim Creat Clear Calc 90.18, Est GFR (MDRD) Af Amer 101, Est GFR (MDRD) Non-Af 83, BUN/Creatinine Ratio 15.0, Glucose 244 H, Calcium 8.1 L 08/01/21 13:57: POC Glucose 184 H 08/01/21 17:05: POC Glucose 379 H ABG Data ABG results: ABG 08/01/21 00:48 Specimen Type ART Sample Site L Radial pH 7.28 L Bicarbonate Actual 9.6 L Total CO2 10 Base Excess -17 L O2 Saturation 98 ABG pCO2 20.6 L ABG pO2 114 H Bryn Test Positive O2 Delivery Device Room Air Radiology Impression Abdomen/Pelvis CT 08/01/21 01:01 IMPRESSION: Acute colitis involving predominantly the ascending through transverse colon, most likely inflammatory or infectious etiology. Electronically Signed: Suzette Barfield MD at 2:01 EDT , Chest X-Ray 08/01/21 01:01 IMPRESSION: No acute pulmonary disease. Electronically Signed: Manuel Batres MD at 2:04 EDT , Charges/Coding Visit Charges Inpatient E&M: 46400 Init Hosp L3
[2021-08-01] MEDS: metroNIDAZOLE 500 MG/100 ML BAG 100 MG IV (18:25)
--- NOTE | 2021-08-01 18:48 | PCM.HOSP.N ---
Hospitalist Note Patient was seen and examined today, he came off his insulin drip this afternoon, patient is alert and appropriate, I talked with his father was in the room at the time my examination today. Patient's CT of his abdomen showed diffuse colitis-patient has no abdominal pain, he denies any diarrhea or bloody stools or abdominal cramping. I discussed his case with gastroenterology (Dr. Taylor) who will see the patient in consultation, he advised placing the patient on IV Flagyl, Zosyn has been stopped due to concerns that the patient was having some kind of reaction during the administration of the Zosyn-this was never felt to be an allergic reaction however. I think the patient should stay in the hospital overnight and be reevaluated tomorrow, I will be giving him IV fluids, patient will be dispensing insulin per his insulin pump based on his intake of carbohydrates. I have asked nursing to notify the night hospitalist if the patient's blood sugars were 400 or above.
[2021-08-01 19:23] LABS: Erythrocyte Sedimentation Rate 6 mm/hr (0-20)
[2021-08-01 19:26] LABS: LDH 194 U/L (87-241)
[2021-08-01 19:45] LABS: Lactic Acid 0.6 mmol/L (0.4-1.9)
[2021-08-01 22:01] LABS: Bedside Glucose 273 mg/dL (74-106)
[2021-08-02] VITALS: PULSE 88
[2021-08-02] MEDS: metroNIDAZOLE 500 MG/100 ML BAG 100 MG IV ×2 (00:20→05:52)
[2021-08-02] MEDS: 0.9% Normal Saline 1,000 ML 125 ML IV (00:20)
[2021-08-02 03:00] VITALS: BP 115/70; PULSE 72; RESP 16; TEMP 36.9; O2SAT 98
[2021-08-02 03:43] VITALS: PULSE 67
[2021-08-02 04:19] LABS: Absolute Lymphocyte Count 2.68 X10^3/uL (0.83-4.51); Absolute Neutrophil Count 7.2 X10^3/uL (2.0-7.7); Basophil# 0.02 X10^3/uL; Basophil% 0.2 % (0-1); Eosinophil# 0.07 X10^3/uL; Eosinophils% 0.6 % (0-5); Hematocrit 40.9 % (40-54); Hemoglobin 13.6 g/dL (13.0-16.5); Lymphocyte # 2.68 X10^3/ul (0.83-4.51); Lymphocyte % 24.6 % (19-41); Mean Corp Hgb Conc 33.3 g/dL (32-36); Mean Corpuscular Hgb 29.8 pg (27.0-32.0); Mean Corpuscular Volume 89.7 fL (80-94); Mean Platelet Vol. 9.6 fl (6.2-12.0); Monocyte# 0.86 X10^3/uL; Monocyte% 7.9 % (0-10); NRBC Flagged by Analyzer 0 % (0-5); Neutrophil # 7.21 X10^3/uL (2.7-7.7); Neutrophil % 66.3 % (47-70); Platelet Count 174 K/mm3 (150-450); RBC Distribution Width SD 39.3 fl (35.1-43.9); Red Blood Count 4.56 M/mm3 (4.6-6.2); White Blood Count 10.9 K/mm3 (4.4-11.0)
[2021-08-02 04:32] LABS: Anion Gap 6 (5-15); BUN 15 mg/dL (7-18); BUN/Creat Ratio 16.8 RATIO (10-20); Calcium,Total 8.3 mg/dL (8.5-10.1); Chloride 111 mmol/L (98-107); Creatinine, Serum 0.89 mg/dL (0.70-1.30); EST Glomerular Filtration Rate 109 mL/min (>60); Est Glom Filt Rate - Afr Amer 132 mL/min (>60); Glucose 111 mg/dL (74-106); Potassium 3.8 mmol/L (3.5-5.1); Sodium Level 139 mmol/L (136-145)
[2021-08-02 07:30] VITALS: BP 130/80; PULSE 68; RESP 18; TEMP 35.8; O2SAT 100
[2021-08-02 07:36] LABS: Bedside Glucose 61 mg/dL (74-106)
[2021-08-02 08:00] VITALS: PULSE 84
[2021-08-02 08:50] LABS: Bedside Glucose 140 mg/dL (74-106)
--- NOTE | 2021-08-02 09:00 | PCM.PROGNOTE ---
Subjective Subjective Patient still continues to do well without the use of antidiarrheals. He had 1 bowel movement the last 24 hours. Objective Data Objective Data Vital Signs: Vital Signs Temp Pulse Resp BP Pulse Ox 97.0 F L 74 18 128/75 H 100 08/02/21 10:11 08/02/21 10:11 08/02/21 10:11 08/02/21 10:11 08/02/21 10:11 Oxygen Delivery Method Room Air Weight: 180 lb 12.465 oz Body Mass Index (BMI) 28.9 Intake & Output: Intake and Output for Last 24 Hours 07/31/21 08/01/21 08/02/21 23:59 23:59 23:59 Intake Total 4785.08 / 4785.08 2521.25 / 2521.25 Output Total 2049 / 2049 625 / 625 Balance 2735.08 / 2735.08 1896.25 / 1896.25 Lab / Micro Data Result Diagrams: 08/02/21 04:05 08/02/21 04:05 Labs: Laboratory Results - last 24 hr 08/01/21 17:05: POC Glucose 379 H 08/01/21 18:45: ESR 6 08/01/21 18:45: Lactate Dehydrogenase 194, C-React Prot Ext Range 84.20 H 08/01/21 18:45: Lactic Acid 0.6 08/01/21 21:53: POC Glucose 273 H 08/02/21 04:05: WBC 10.9, RBC 4.56 L, Hgb 13.6, Hct 40.9, MCV 89.7, MCH 29.8, MCHC 33.3, RDW Std Deviation 39.3, RDW Coeff of Alondra 12.0, Plt Count 174, MPV 9.6, Immature Gran % (Auto) 0.400, Neut % (Auto) 66.3, Lymph % (Auto) 24.6, [place] % (Auto) 7.9, Eos % (Auto) 0.6, Baso % (Auto) 0.2, Absolute Neuts (auto) 7.2, Absolute Lymphs (auto) 2.68, Nucleated RBC % 0 08/02/21 04:05: Sodium 139, Potassium 3.8, Chloride 111 H, Carbon Dioxide 22.0, Anion Gap 6, BUN 15, Creatinine 0.89, Estim Creat Clear Calc 114.50, Est GFR (MDRD) Af Amer 132, Est GFR (MDRD) Non-Af 109, BUN/Creatinine Ratio 16.8, Glucose 111 H, Calcium 8.3 L 08/02/21 07:28: POC Glucose 61 L 08/02/21 08:45: POC Glucose 140 H 08/02/21 11:55: POC Glucose 235 H Physical Exam Const alert General Appearance: cooperative Orientation / Consciousness: oriented to person HEENT hearing grossly normal bilaterally Head and Scalp: normal to inspection Face and Sinus: face symmetric Nose: external nose normal Mouth: oral and palatal mucosa normal Eyes conjunctivae normal General Eye: normal appearance of both eyes Neck full ROM General: normal visual inspection Lymph Lymphatic: no lymphadenopathy noted Chest inspection of chest normal and palpation of chest normal Chest: symmetrical chest wall rise Resp normal respiratory effort Effort and Inspection: able to speak in complete sentences Cardio regular rate GI non-distended Percussion: normal to percussion Rectal Exam: deferred Neuro Speech: speech normal Gait (Neuro): normal gait Assessment & Plan Assessment/Plan (1) Nausea and vomiting: PLAN: Nausea vomiting secondary to DKA. Patient is doing well and is tolerating a normal diet. Would recommend PPI therapy twice a day as he is high risk for erosive esophagitis and subsequently Mel esophagitis. (2) Colitis: PLAN: Colitis secondary to ischemic colitis. He is not showing any signs of megacolon, perforation or an acute abdomen secondary to likely ischemic colitis. He is doing well and would like to follow-up as an outpatient regarding his new diagnosis. Charges/Coding Visit Charges Inpatient E&M: 95751 Subs Hosp L2
--- NOTE | 2021-08-02 10:05 | PCM.DC ---
Discharge Instructions Diet Discharge Diet: Carb Control Diet Activity Discharge Activity: Return to Normal Activity Dressing / Incision Call your doctor if you observe: Fever of 101 or Higher, Shortness of breath, Dizziness, Fainting spells, Swelling in the ankles, Chest pain and Increased palpitations (irregular heartbeat) Follow Up Care Test Results: Test results from this visit will be discussed in further detail at your follow-up appointment, if applicable. Discharge Plan Admission Admit Date/Time: 08/01/21 02:36 Attending Provider: Ran Taylor Primary Care Provider: Kristen Julian Consulting Providers: Carole Chao ; Scar Clark Discharge Orders/Prescriptions Prescriptions: New metronidazole 500 mg tablet 500 mg PO Q8H 7 Days Qty: 21 0RF Continued glucagon (human recombinant) [Glucagon Emergency Kit (human)] 1 mg kit 1 mg IM ONCE (DME) FreeStyle Severiano 14 Day Sensor Kit See Dose Instructions .ROUTE .MEDSUPPLY Qty: 2 11RF Dose Instruction: As directed Rx Instructions: As directed (DME) FreeStyle Severiano 14 Day [place] Misc See Dose Instructions .ROUTE .MEDSUPPLY Qty: 2 11RF Dose Instruction: As directed Rx Instructions: As directed venlafaxine [Effexor XR] 150 mg Capsule,Extended Release 24hr 150 mg PO (DME) Contour Next Test Strips strip See Dose Instructions .ROUTE .MEDSUPPLY Qty: 250 11RF Dose Instruction: As directed Rx Instructions: use to check BG 8 x qd insulin lispro [Humalog U-100 Insulin] 100 unit/mL solution See Rx Instructions [place] QDAY Qty: 9 11RF Dose Instruction: uses up to 80 units qd via pump SC QDAY Rx Instructions: uses up to 80 units qd via pump SC QDAY Referrals / Follow Up: Kristen Julian DO [Primary Care Provider] - Carlito Taylor DO [STAFF PHYSICIAN] - Within 2 Weeks Felix Jimenez MD [STAFF PHYSICIAN] - Within 1 Month Disposition Disposition (needs filled in before D/C Order can be placed): Home, Self Care
[2021-08-02 10:11] VITALS: BP 128/75; PULSE 74; RESP 18; TEMP 36.1; O2SAT 100
--- NOTE | 2021-08-02 10:12 | DS.PCM_ITS ---
Providers Date of Admission: 08/01/21 Primary Care Physician: Dr. Kristen Julian, DO Consultations 08/01/21 17:50 Consult: Gastroenterology Routine Consulting Provider: [facility] Reason for Consult: colitis EMERGENT Consult: No MD Notified: Yes Date Notified: 08/01/21 Time Notified: 17:50 Method of Notification: Verbal Reason For Visit: DKA/ ACUTE COLITIS Diagnosis Discharge Diagnosis (1) Colitis: Status: Acute Code(s): K52.9 - Noninfective gastroenteritis and colitis, unspecified Medications at Discharge Home Medications glucagon (human recombinant) 1 mg injection kit (Glucagon Emergency Kit (human- recomb)) 1 mg IM ONCE 05/27/17 Contour Next Test Strips (blood sugar diagnostic) #250 ea 05/11/18 flash glucose sensor (FreeStyle Severiano 14 Day Sensor) #2 ea 09/16/19 flash glucose scanning reader (FreeStyle Severiano 14 Day [place]) #2 ea 04/09/20 insulin lispro 100 unit/mL subcutaneous solution (Humalog U-100 Insulin) See Rx Instructions subcut QDAY e10.9 #9 mL 03/12/21 venlafaxine 150 mg capsule,extended release 24 hr (Effexor XR) 150 mg PO Check with primary doctor 08/01/21 metronidazole 500 mg tablet 500 mg PO Q8H 7 days #21 tabs 08/02/21 Hospital Course Operations None Procedures None Summary of Care Provided Minutes Spent on Discharge: 40 Hospital Course: Per HPI: ASHLEY FERRARI, is a 25 M with a known history of type 1 diabetes on an in sulin pump who presented to the emergency department at [facility] with generalized abdominal discomfort which progressed to nausea and vomiting this evening.? States the abdominal pain started earlier today and has had 5-6 episodes of emesis prior to coming to the emergency department.? He states that his insulin pump has been functioning well however when I questioned him he states his site might be bad.? He indicates his last hemoglobin's A1c was in the 7 range.? He follows with Dr. Jimenez as an outpatient.? His last Depakote sewed of DKA was approximately 10 years ago.? He denies any sick contacts, fevers, chills, diarrhea, dysuria, hematemesis or coffee-ground emesis. On presentation to the emergency department his temperature was 98.0, heart rate was 130, blood pressure is 149/89, respiratory rate 18, and oxygen saturations 99 to 100% on room air.? His CBC shows a marked leukocytosis and erythrocytosis with a white count of 23.5 and a hemoglobin of 16.9.? He does have a left shift.? ABG showed a pH of 7.28 with a serum bicarb of 9.6/PCO2 of 20.6 and PO2 of 114 on room air.? His chemistry panel showed mild hyponatremia with a sodium of 133 a serum bicarb of 11, and anion gap of 23, a BUN of 21, a serum creatinine of 1.28, lactic acid of 5.5, and a serum glucose of 4.83.? His LFTs were within normal limits and his lipase was 32.? His UA was unremarkable other than glucose urea and elevated ketones.? His acetone level in his blood was moderate.? His chest x-ray showed no acute pulmonary disease.? Given his abdominal pain, a CT of his abdomen and pelvis was performed and showed acute colitis involving predominantly the ascending through transverse colon with changes consistent with inflammation or infectious etiology. In the emergency department he was given IV fluids and started on an insulin drip.? His nausea vomiting was also treated with antiemetics. Hospital Course: 1. DKA/colitis?25-year-old male with history of type 1 diabetes presented to the hospital with significant dehydration which was evidenced by his eryth rocytosis, leukocytosis as well as lactic acidosis. He was started on IV fluids and was placed on insulin drip. His gap closed and his blood sugars normalized so his insulin drip was discontinued. He did have a little bit of a low blood sugar this morning however this resolved with orange juice and breakfast. He does have an insulin pump that he uses generally and then he adjusts based on what he eats and what his blood sugar is. He cannot really point to reason why he went into DKA, he states that he normally follows a diet and was making the appropriate adjustments, he thinks it may be the site he used for the insulin he did not absorb it. He states that on occasion his blood sugar will get high but he is able to lower it with the adjustment to his insulin however this time he could not. 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 He was also found to have colitis on the CT scan of his abdomen and pelvis. He is completely asymptomatic with no abdominal pain, no bloody bowel movements. He still has no abdominal pain and no blood in his stools. Gastroenterology was consulted and felt like this could be an ischemic colitis so he is okay with Flagyl, which we will continue for 7 days. I do recommend following up with gastroenterology as an outpatient. The concern is is that given his type 1 diabetes, the presentation of symptoms could be abnormal. Blood pressures are stable and in the normal range. I discussed with him about the plan for possible discharge today he expressed understanding of the risk and benefits of going home and wants to go home today. He states that he feels much better today than when he came in, he improved faster than anticipated. Physical Exam Const alert, oriented x3 and no apparent distress General Appearance: cooperative HEENT normocephalic and moist oral mucous membranes Eyes PERRL, EOMs intact bilaterally and conjunctivae normal Neck supple and no JVD Resp normal respiratory effort, no retractions, no use of accessory muscles and clear to auscultation bilaterally Auscultation: Negative for crackles, rales, rhonchi or wheezes Cardio regular rate, regular rhythm, S1 normal heart sound, S2 normal heart sound and no murmurs GI soft to palpation, non-tender and non-distended; Negative for hepatosplenomegaly Extremity no clubbing, cyanosis or edema Skin no rashes or lesions noted Neuro no focal motor deficits and no sensory deficits noted Psych affect normal Appearance: appropriate Weight / BMI Weight Weight: 180 lb 12.465 oz Body Mass Index (BMI) 28.9 ABG / Lab / Microbiology Data Result Diagrams: 08/02/21 04:05 08/02/21 04:05 Laboratory: Laboratory Results - last 24 hr 08/01/21 10:07: POC Glucose 257 H 08/01/21 11:03: POC Glucose 235 H 08/01/21 12:01: POC Glucose 218 H 08/01/21 12:05: Sodium 136, Potassium 4.5, Chloride 110 H, Carbon Dioxide 18.0 L , Anion Gap 8, BUN 17, Creatinine 1.13, Estim Creat Clear Calc 90.18, Est GFR (MDRD) Af Amer 101, Est GFR (MDRD) Non-Af 83, BUN/Creatinine Ratio 15.0, Glucose 244 H, Calcium 8.1 L 08/01/21 13:57: POC Glucose 184 H 08/01/21 17:05: POC Glucose 379 H 08/01/21 18:45: ESR 6 08/01/21 18:45: Lactate Dehydrogenase 194, C-React Prot Ext Range 84.20 H 08/01/21 18:45: Lactic Acid 0.6 08/01/21 21:53: POC Glucose 273 H 08/02/21 04:05: WBC 10.9, RBC 4.56 L, Hgb 13.6, Hct 40.9, MCV 89.7, MCH 29.8, MCHC 33.3, RDW Std Deviation 39.3, RDW Coeff of Alondra 12.0, Plt Count 174, MPV 9.6, Immature Gran % (Auto) 0.400, Neut % (Auto) 66.3, Lymph % (Auto) 24.6, Todd % (Auto) 7.9, Eos % (Auto) 0.6, Baso % (Auto) 0.2, Absolute Neuts (auto) 7.2, Absolute Lymphs (auto) 2.68, Nucleated RBC % 0 08/02/21 04:05: Sodium 139, Potassium 3.8, Chloride 111 H, Carbon Dioxide 22.0, Anion Gap 6, BUN 15, Creatinine 0.89, Estim Creat Clear Calc 114.50, Est GFR (MDRD) Af Amer 132, Est GFR (MDRD) Non-Af 109, BUN/Creatinine Ratio 16.8, Glucose 111 H, Calcium 8.3 L 08/02/21 07:28: POC Glucose 61 L 08/02/21 08:45: POC Glucose 140 H D/C Instructions Discharge Diet: Carb Control Diet Call your doctor if you observe: Fever of 101 or Higher, Shortness of breath, Dizziness, Fainting spells, Swelling in the ankles, Chest pain and Increased palpitations (irregular heartbeat) Meaningful Use Info Meaningful Use Diagnoses (Choose all that apply): None applicable Discharge Plan Admission Admit Date/Time: 08/01/21 02:36 Attending Provider: Ran Taylor Primary Care Provider: Kristen Julian Consulting Providers: Carole Chao ; Scar Clark Discharge Orders/Prescriptions Prescriptions: New metronidazole 500 mg tablet 500 mg PO Q8H 7 Days Qty: 21 0RF Continued glucagon (human recombinant) [Glucagon Emergency Kit (human)] 1 mg kit 1 mg IM ONCE (DME) FreeStyle Severiano 14 Day Sensor Kit See Dose Instructions .ROUTE .MEDSUPPLY Qty: 2 11RF Dose Instruction: As directed Rx Instructions: As directed (DME) FreeStyle Severiano 14 Day [place] Misc See Dose Instructions .ROUTE .MEDSUPPLY Qty: 2 11RF Dose Instruction: As directed Rx Instructions: As directed venlafaxine [Effexor XR] 150 mg Capsule,Extended Release 24hr 150 mg PO (DME) Contour Next Test Strips strip See Dose Instructions .ROUTE .MEDSUPPLY Qty: 250 11RF Dose Instruction: As directed Rx Instructions: use to check BG 8 x qd insulin lispro [Humalog U-100 Insulin] 100 unit/mL solution See Rx Instructions SC QDAY Qty: 9 11RF Dose Instruction: uses up to 80 units qd via pump SC QDAY Rx Instructions: uses up to 80 units qd via pump SC QDAY Referrals / Follow Up: Kristen Julian DO [Primary Care Provider] - Carlito Taylor DO [STAFF PHYSICIAN] - Within 2 Weeks Felix Jimenez MD [STAFF PHYSICIAN] - Within 1 Month Disposition Disposition (needs filled in before D/C Order can be placed): Home, Self Care Charges/Coding Visit Charges Inpatient E&M: 15831 Disch Hosp
--- NOTE | 2021-08-02 10:33 | NURSING ---
per pt, pt self administered 6 units of humalog from SC insulin pump at [facility]
[2021-08-02 12:01] LABS: Bedside Glucose 235 mg/dL (74-106)
== END 2021-08-02 12:45 | disposition home or self-care (01) | DRG 638 ==
LOC: ED 08-01 01:20 → ICU 08-01 03:10
PROVIDERS: Internal Medicine; Internal Medicine Gastroenterology; Admitting Provider Internal Medicine; Emergency Provider Emergency Medicine; PCP Family Medicine; Visit Provider Family Medicine
DX: E10.10 Type 1 diabetes mellitus with ketoacidosis without coma (principal); K55.9 Vascular disorder of intestine, unspecified; E87.1 Hypo-osmolality and hyponatremia; Z79.4 Long term (current) use of insulin; E78.00 Pure hypercholesterolemia, unspecified; E86.0 Dehydration; I88.0 Nonspecific mesenteric lymphadenitis; F32.A Depression, unspecified; Z96.41 Presence of insulin pump (external) (internal); Z79.899 Other long term (current) drug therapy
CPT/HCPCS: 36600; 71045; 74177; 80048; 80053; 80076; 81001; 82009; 82803; 82962; 83605; 83615; 83690; 83735; 84100; 84443; 85025; 85652; 86140; 87040; 94762; 97802; 99251; 99284; J7030; J7050; Q9967; A4216; G0463; J2405; J7799

== ENCOUNTER → 2022-08-22 | Outpatient (CLI) | payer BC, MEDICAID, SELFPAY ==
[2022-08-22 16:36] LABS: HIV - WCH Non-Reactive (Nonreactive); Hepatitis C Antibody Non-Reactive (Nonreactive); Syphilis Antibodies Non-reactive
== END | disposition home or self-care (01) ==
LOC: BFHLAB 11:43
PROVIDERS: PCP Nurse Practitioner Family; Referring Provider Nurse Practitioner Family; Visit Provider Nurse Practitioner Family
DX: Z20.9 Contact with and (suspected) exposure to unspecified communicable disease (principal)
CPT/HCPCS: 36415; 86703; 86780; 86803; 87491; 87591

== ENCOUNTER → 2023-04-16 | Outpatient (CLI) | payer BC, MEDICAID, SELFPAY ==
[2023-04-16 12:30] LABS: Hematocrit 43.8 % (40-54); Hemoglobin 14.6 g/dL (13.0-16.5); Mean Corp Hgb Conc 33.3 g/dL (32-36); Mean Corpuscular Hgb 29.7 pg (27.0-32.0); Platelet Count 173 K/mm3 (150-450); RBC Distribution Width CV 12.1 % (11.6-14.6); RBC Distribution Width SD 39.6 fl (35.1-43.9); Red Blood Count 4.92 M/mm3 (4.6-6.2); White Blood Count 6.8 K/mm3 (4.4-11.0)
[2023-04-16 12:59] LABS: Vitamin D,25 Hydroxy 13.2 ng/mL
[2023-04-16 13:15] LABS: ALB/GLOB Ratio 1.4 RATIO (0.9-2.4); AST(SGOT) 13 U/L (15-37); Alanine Aminotransfer ALT/SGPT 19 U/L (16-61); Albumin, Serum 4.2 g/dL (3.2-5.0); Alkaline Phosphatase 105 U/L (45-117); Anion Gap 5 (5-15); BUN 22 mg/dL (7-18); BUN/Creat Ratio 25.1 RATIO (10-20); Calcium,Total 8.9 mg/dL (8.5-10.1); Chloride 109 mmol/L (98-107); Cholesterol 180 mg/dL (200); Creatinine, Serum 0.88 mg/dL (0.70-1.30); EST Glomerular Filtration Rate 111 mL/min (>60); Est Glom Filt Rate - Afr Amer 134 mL/min (>60); Globulin 3.1 g/dL (2.2-4.2); Glucose 273 mg/dL (74-106); High Density Lipoprotein 52 mg/dL; Potassium 3.8 mmol/L (3.5-5.1); Protein, Total 7.3 g/dL (6.4-8.2); Sodium Level 138 mmol/L (136-145); Thyroid Stim Hormone (TSH) 0.69 uIU/mL (0.358-3.74); Triglycerides 56 mg/dL; Very Low Density Lipoprotein 11 mg/dL (5-40)
[2023-04-16 13:18] LABS: Microalbumin:Creatinine Ratio 63.8 mg/g CRE (<30 mg/g CRE)
--- OUTSIDE RECORDS SUMMARY | 2023-04-16 18:30 | XMS RPT_ITS | CCD ---
Author Name Unknown Address [address] [place] [address] Organization [facility] Care Team Providers Care Sales Estimator Name Role Phone Ree Singh LPN Unavailable Unavailable Kaden CARTER, Glenis Hoyos Unavailable [phone] Renée ALVARADO, Hali F Unavailable Unavailabl e Renée ALVARADO, Hali F Unavailable Unavailabl e Ree Singh LPN Unavailable Unavailable Kaden CARTER, Glenis Hoyos Unavailable Sagar Garnica MD Primary Care Provider Sagar Garnica MD Primary Care Provider [phone] SAGAR GARNICA Primary Care Unavailable ADELITA FALK Attending Unavailable Kristen Julian DO Primary Care Provider Medications Completed/Discontinued Medications Medication Drug Class(es) Dates Sig (Normalized) Sig (Original) amoxicillin 875 mg / clavulanate 125 mg oral tablet (8 sources) Penicillin-class Antibacterial Start: 01-16-2011 End: 01-26-2011 take 1 tablet by mouth twice daily AUGMENTIN 875-125 MG TABS One tablet by mouth twice daily AMOXICILLIN-POT CLAVULANATE [id number] Brett Dunham MD Problems Active Problems Problem Classification Problem Date Documented Da te Episodic/Chronic Diabetes mellitus with complications (3 sources) Type 1 diabetes mellitus; Translations: [Type I (juvenile type) diabetes mellitus without mention of complication, uncontrolled] Onset: 03-21-2008 03-21-2008 Chronic Diabetes mellitus without complication (20 sources) Diabetes mellitus without complication; Translations: [Encounter for fitting and adjustment of insulin pump] Onset: 02-28-2015 01-30-2016 Chronic Mood disorders (8 sources) Recurrent major depression; Translations: [Major depressive disorder, recurrent, unspecified] Onset: 02-28-2015 03-31-2015 Chronic Other nutritional; endocrine; and metabolic disorders (8 sources) Overweight; Translations: [Overweight] Onset: 05-08-2016 05-08-2016 Chronic Unclassified (1 source) Procedure carried out on subject; Translations: [Encounter for fitting and adjustment of insulin pump] Onset: 03-18-2016 03-19-2016 Past or Other Problems Problem Classification Problem Date Documented Da te Episodic/Chronic Hepatitis (20 sources) Type B viral hepatitis; Translations: [Viral hepatitis C] Resolved: 01-30-2016 01-30-2016 Episodic Malaise and fatigue (8 sources) Fatigue; Translations: [Other fatigue] Onset: 02-28-2015 02-28-2015 Episodic Other liver diseases (8 sources) Liver function tests abnormal; Translations: [Abnormal results of liver function studies] Onset: 03-02-2015 03-02-2015 Episodic Other upper respiratory infections (20 sources) Viral upper respiratory tract infection; Translations: [Acute pharyngitis] Onset: 10-17-2010 Resolved: 10-24-2010 01-07-2011 Episodic Results Test Name Value Interpretation Reference Range Facil ity Vital Signs Date Time Vital Sign Value Performing Clinician Facility 08-11-2016 14:09-0400 Body Temperature 97.3 [degF] [facility] Work Phone: 08-11-2016 14:09-0400 BP Diastolic 77 mm[Hg] [facility] Work Phone: 08-11-2016 14:09-0400 BP Systolic 123 mm[Hg] [facility] Work Phone: 08-11-2016 14:09-0400 Height 165.74 cm [facility] Work Phone: 08-11-2016 14:09-0400 Pulse (Heart Rate) 75 /min [facility] Work Phone: 08-11-2016 14:09-0400 Pulse Oximetry 98 % [facility] Work Phone: 08-11-2016 14:09-0400 Respiratory Rate 18 /min Ree Singh [facility] Work Phone: 07-31-2016 16:13-0400 BMI (Body Mass Index) 28.73 kg/m2 Glenis Alfonso [employer] [facility] Work Phone: 07-31-2016 16:13-0400 Body Temperature 98.2 [degF] Glenis Alfonso [employer] [facility] Work Phone: 07-31-2016 16:13-0400 BP Diastolic 74 mm[Hg] Glenis Alfonso [employer] Work Phone: 07-31-2016 16:13-0400 BP Systolic 128 mm[Hg] Glenis Alfonso [employer] [facility] Work Phone: 07-31-2016 16:13-0400 Height 165.74 cm Glenis Alfonso [employer] [facility] Work Phone: 07-31-2016 16:13-0400 Pulse (Heart Rate) 73 /min Glenis Alfonso [employer] Work Phone: 07-31-2016 16:13-0400 Pulse Oximetry 99 % Glenis Alfonso [employer] [facility] Work Phone: 07-31-2016 16:13-0400 Respiratory Rate 16 /min Glenis Alfonso NP [facility] Work Phone: 07-31-2016 16:13-0400 Weight 78.93 kg Glenis Alfonso [facility] Work Phone: 06-12-2016 16:14-0400 BMI (Body Mass Index) 29.13 kg/m2 Hali Cavazosclarice MANAGER CHANNEL [facility] Work Phone: 06-12-2016 16:14-0400 Body Temperature 98.2 [degF] Hali Cavazosclarice MANAGER [employer]ANNEL [facility] Work Phone: 06-12-2016 16:14-0400 BP Diastolic 74 mm[Hg] Hali Chinchilla LPN [facility] Work Phone: 06-12-2016 16:14-0400 BP Diastolic 84 mm[Hg] Hali Chinchilla [facility]PN [facility] Work Phone: 06-12-2016 16:14-0400 BP Systolic 126 mm[Hg] Hali Chinchilla LPN [facility] Work Phone: 06-12-2016 16:14-0400 BP Systolic 138 mm[Hg] Hali Chinchilla LPN [facility] Work Phone: 06-12-2016 16:14-0400 BSA (Body Surface Area) 1.88 m2 Hali Chinchilla LPN [facility] Work Phone: 06-12-2016 16:14-0400 Height 165.74 cm Hali Chinchilla LPN [facility] Work Phone: 06-12-2016 16:14-0400 Pulse (Heart Rate) 93 /min [facility] Work Phone: 06-12-2016 16:14-0400 Pulse Oximetry 97 % Hali Chinchilla LPN [facility] Work Phone: 06-12-2016 16:14-0400 Respiratory Rate 16 /min [facility] Work Phone: 06-12-2016 16:14-0400 Weight 80.01 kg Hali Chinchilla LPN [facility] Work Phone: 06-12-2016 16:14-0400 Weight 80.02 kg Hali Chinchilla LPN [facility] Work Phone: Encounters Encounter Date Encounter Type Care Provider Facility Start: 05-19-2022 Transcribe Orders Anjum richards MD Work Phone: [facility] Procedures Date Procedure Procedure Detail Performing Clinician Start: 07-31-2016 End: 07-31-2016 Dietary management education, guidance, and counseling Glenis Alfonso NP Start: 05-08-2016 End: 07-10-2016 Hemoglobin A1c/Hemoglobin.total in Blood Glenis Alfonso [employer] Work Phone: Start: 05-08-2016 End: 07-10-2016 Lipid 1996 panel - Serum or Plasma Glenis Alfonso [employer] Work Phone: Start: 05-08-2016 End: 07-10-2016 HbA1c Glenis Alfonso [employer] Work Phone: Start: 05-08-2016 End: 07-10-2016 Lipid panel [AGGREGATE] Glenis Alfonso N P Work Phone: Start: 01-30-2016 End: 02-22-2016 *CMP Complete Metabolic Panel Glenis Alfonso [employer] Work Phone: Start: 01-30-2016 End: 02-22-2016 *Microalbumin, Creatine Ratio, rand urine Glenis Alfonso [employer] Work Phone: Start: 01-30-2016 End: 02-22-2016 Hemoglobin A1c/Hemoglobin.total in Blood Glenis Alfonso [employer] Work Phone: Start: 01-30-2016 End: 02-22-2016 Thyrotropin [Units/volume] in Serum or Plasma Glenis Alfonso [employer] Work Phone: Start: 01-30-2016 End: 02-22-2016 *CMP Complete Metabolic Panel Glenis Alfonso [employer] Work Phone: Start: 01-30-2016 End: 02-22-2016 *Microalbumin, Creatine Ratio, rand urine Glenis Alfonso [employer] Work Phone: Start: 01-30-2016 End: 02-22-2016 HbA1c Glenis Alfonso [employer] Work Phone: Start: 01-30-2016 End: 02-22-2016 Thyroid stimulating hormone (TSH) Glenis Alfonso [employer] Work Phone: Start: 08-16-2015 End: 08-16-2015 Hemoglobin glycosylated a1c Scar Lee DO Work Phone: Start: 08-16-2015 End: 08-16-2015 HbA1c Scar Lee DO Work Phone: Start: 08-16-2015 End: 08-16-2015 Hemoglobin glycosylated a1c Scar Lee DO Work Phone: Start: 03-02-2015 End: 03-08-2015 *LUIS MIGUEL Zelaya Malys, DO Work Phone: Start: 03-02-2015 End: 03-08-2015 *[facility] HEP ABC Profile [id number] Kristen A Malys, DO Work Phone: Start: 03-02-2015 End: 03-08-2015 *LUIS MIGUEL Kristen Zelaya Malys, DO Work Phone: Start: 03-02-2015 End: 03-08-2015 *[facility] HEP ABC Profile [id number] Kristen A Malys, DO Work Phone: Start: 02-28-2015 End: 03-01-2015 *CBC with Differential Kristen Mars Malys, DO Work Phone: Start: 02-28-2015 End: 03-01-2015 *CMP Complete Metabolic Panel Kristen Mars Malys, DO Work Phone: Start: 02-28-2015 End: 03-01-2015 *Microalbumin, Creatine Ratio, rand urine Kristen Mars Malys, DO Work Phone: Start: 02-28-2015 End: 03-06-2015 Hemoglobin A1c/Hemoglobin.total in Blood Kristen A Malys, DO Work Phone: Start: 02-28-2015 End: 03-01-2015 *CBC with Differential Kristen A Malys, DO Work Phone: Start: 02-28-2015 End: 03-01-2015 *CMP Complete Metabolic Panel Kristen Mars Malys, DO Work Phone: Start: 02-28-2015 End: 03-01-2015 *Microalbumin, Creatine Ratio, rand urine Kristen Mars Malys, DO Work Phone: Start: 02-28-2015 End: 03-06-2015 HbA1c Kristen Julian DO Work Phone: Start: 01-16-2011 End: 01-17-2011 Follow-up visit Brett Dunham MD Start: 01-16-2011 End: 01-17-2011 Follow-up visit Brett Dunham MD Plan of Treatment Date Care Activity Detail Author Start: 11-06-2022 3 comp foot exam completed DIABETIC FOOT EXAM [facility] Start: 10-17-2022 Influenza vaccination Sequential Influenza Vaccine (Season Ended) [facility] Start: 09-05-2022 End: 09-05-2022 Patient encounter procedure 09/05/2022 11:00 AM EDT Office Visit [facility] Physicians [facility] [place] [address] [place] [address] Sin Goodman, [facility] [address] [place] [address] [facility] [place] Start: 05-06-2022 Hemoglobin A1c/Hemoglobin.total in Blood HBA1C [facility] Start: 02-16-2022 DEPRESSION ASSESSMENT DEPRESSION ASSESSMENT [facility] Start: 10-17-2021 Influenza vaccination INFLUENZA (#1) [facility] Start: 02-16-2021 DEPRESSION ASSESSMENT DEPRESSION ASSESSMENT [facility] Start: 07-18-2020 COVID-19 VACCINE (3 - Booster for Pfizer series) COVID-19 VACCINE (3 - Booster for Pfizer series) [facility] Start: 10-21-2016 End: 10-21-2016 Appointment [facility]ointment [facility] Work Phone: Start: 08-11-2016 End: 08-11-2016 Appointment Appointment [facility] Work Phone: Start: 08-11-2016 End: 08-11-2016 Appointment Appointment [facility] Work Phone: Start: 07-31-2016 End: 07-31-2016 Appointment [facility] Work Phone: Start: 07-31-2016 End: 08-04-2016 *CMP Complete Metabolic Panel *CMP Complete Metabolic Panel [facility] Work Phone: Start: 07-31-2016 End: 08-04-2016 Hemoglobin A1c/Hemoglobin.total mass fraction (Bld) *HgA1C [facility] Work Phone: Start: 07-31-2016 End: 08-04-2016 *CMP Complete Metabolic Panel *CMP Complete Metabolic Panel [facility] Work Phone: Start: 07-31-2016 End: 08-04-2016 HbA1c *HgA1C [facility] Work Phone: Start: 06-12-2016 End: 06-12-2016 Hemoglobin A1c/Hemoglobin.total mass fraction (Bld) *HgA1C [facility] Work Phone: Start: 06-12-2016 End: 06-12-2016 Lipid panel [AGGREGATE] *Lipid Profile [facility] Work Phone: Start: 06-12-2016 End: 06-12-2016 HbA1c *HgA1C [facility] Work Phone: Start: 06-12-2016 End: 06-12-2016 Lipid panel [AGGREGATE] *Lipid Profile [facility] Work Phone: Start: 05-08-2016 End: 07-10-2016 Hemoglobin A1c/Hemoglobin.total mass fraction (Bld) *HgA1C [facility] Work Phone: Start: 05-08-2016 End: 07-10-2016 Lipid panel [AGGREGATE] *Lipid Profile [facility] Work Phone: Start: 05-08-2016 End: 07-10-2016 HbA1c *HgA1C [facility] Work Phone: Start: 05-08-2016 End: 07-10-2016 Lipid panel [AGGREGATE] *Lipid Profile [facility] Work Phone: Start: 01-30-2016 End: 02-22-2016 *CMP Complete Metabolic Panel *CMP Complete Metabolic Panel [facility] Work Phone: Start: 01-30-2016 End: 02-22-2016 *Microalbumin, Creatine Ratio, rand urine *Microalbumin, Creatine Ratio, rand urine [facility] Work Phone: Start: 01-30-2016 End: 02-22-2016 Hemoglobin A1c/Hemoglobin.total mass fraction (Bld) *HgA1C [facility] Work Phone: Start: 01-30-2016 End: 02-22-2016 Thyroid stimulating hormone (TSH) *TSH [facility] Work Phone: Start: 01-30-2016 End: 02-22-2016 *CMP Complete Metabolic Panel *CMP Complete Metabolic Panel [facility] Work Phone: Start: 01-30-2016 End: 02-22-2016 *Microalbumin, Creatine Ratio, rand urine *Microalbumin, Creatine Ratio, rand urine [facility] Work Phone: Start: 01-30-2016 End: 02-22-2016 HbA1c *HgA1C [facility] Work Phone: Start: 01-30-2016 End: 02-22-2016 Thyroid stimulating hormone (TSH) *TSH [facility] Work Phone: Start: 01-19-2016 Hepatitis C antibody, confirmatory test DILATED RETINAL EXAM [facility] Start: 03-24-2015 Hepatitis B surface antibody level LDL CHOLESTEROL [facility] Start: 03-02-2015 End: 03-08-2015 *LUIS MIGUEL *[facility]IS MIG[facility]EL [facility] Work Phone: Start: 03-02-2015 End: 03-08-2015 *[facility] HEP ABC Profile [id number] *[facility] HEP ABC Profile [id number] [facility] Work Phone: Start: 03-02-2015 End: 03-02-2015 Us abdominal real time w/image limited US Liver [facility] Work Phone: Start: 03-02-2015 End: 03-08-2015 *LUIS MIGUEL *LUIS MIG[facility]EL [facility] Work Phone: Start: 03-02-2015 End: 03-08-2015 *[facility] HEP ABC Profile [id number] *[facility] HEP ABC Profile [id number] [facility] Work Phone: Start: 03-02-2015 End: 03-02-2015 Echo exam of abdomen [facility] Work Phone: Start: 02-28-2015 End: 03-01-2015 *CBC with Differential *CBC with Differential [facility] Work Phone: Start: 02-28-2015 End: 03-01-2015 *CMP Complete Metabolic Panel *CMP Complete Metabolic Panel [facility] Work Phone: Start: 02-28-2015 End: 03-01-2015 *Microalbumin, Creatine Ratio, rand urine *Microalbumin, Creatine Ratio, rand urine [facility] Work Phone: Start: 02-28-2015 End: 03-06-2015 Hemoglobin A1c/Hemoglobin.total mass fraction (Bld) *HgA1C [facility] Work Phone: Start: 02-28-2015 End: 03-01-2015 *CBC with Differential *CBC with Differential [facility] Work Phone: Start: 02-28-2015 End: 03-01-2015 *CMP Complete Metabolic Panel *CMP Complete Metabolic Panel [facility] Work Phone: Start: 02-28-2015 End: 03-01-2015 *Microalbumin, Creatine Ratio, rand urine *Microalbumin, Creatine Ratio, rand urine [facility] Work Phone: Start: 02-28-2015 End: 03-06-2015 HbA1c *HgA1C [facility] Work Phone: Start: 08-22-2014 Urine microalbumin profile DTAP,TDAP,TD (1 - Tdap) [facility] Start: 08-22-2013 ANNUAL PCP TEAM CHRONIC DISEASE VISIT ANNUAL PCP TEAM CHRONIC DISEASE VISIT [facility] Start: 08-22-2013 HEPATITIS C SCREENING HEPATITIS C SCREENING [facility] Start: 08-22-2013 Hepatitis C screening Hepatitis C Screening [facility] Start: 08-22-2013 HIV SCREENING HIV SCREENING [facility] Start: 01-16-2011 End: 01-17-2011 Follow-up visit Follow Up as needed [facility] Work Phone: Start: 01-16-2011 End: 01-17-2011 Follow-up visit Follow Up as needed [facility] Work Phone: Start: 08-22-2010 HIV screening HIV Screening [facility] Start: 07-10-2010 Hepatitis B screening URINE ALBUMIN:CREATININE RATIO [facility] Start: 08-22-2009 PEDS TO ADULT TRANSITION ANNUAL ASSESSMENT PEDS TO ADULT TRANSITION ANNUAL ASSESSMENT [facility] Start: 2007 Depression screening using PHQ-9 (Patient Health Questionnaire 9) score Depression Screening (PHQ-2/9) [facility] Start: 2007 PEDS TO ADULT TRANSITION INITIAL DISCUSSION PEDS TO ADULT TRANSITION INITIAL DISCUSSION [facility] Start: 08-22-2006 HPV VACCINE (1 - Male 2-dose series) HPV VACCINE (1 - Male 2-dose series) [facility] Start: 08-22-2001 PNEUMOCOCCAL (1 - PCV) PNEUMOCOCCAL (1 - PCV) [facility] Start: 08-22-1998 History and physical examination, annual for health maintenance Wellness Visit [facility] Start: 02-23-1996 COVID-19 Vaccine (#1) COVID-19 Vaccine (#1) [facility] Start: 1995 HEPATITIS B (1 of 3 - 3-dose series) HEPATITIS B (1 of 3 - 3-dose series) [facility] Start: 1995 Tetanus vaccination Tetanus: Every 10yrs [facility] Patient Education [facility] Work Phone: [facility] Immunizations Immunization Date Immunization Notes Care Provider Taylor norman 01-23-2009 novel [id number], all formulations Adelita Falk MD Work Phone: [facility] Work Phone: Payers Date Payer Category Payer Unknown [id number] 2021 Unknown [id number] Social History Date Type Detail Facility Start: 11-06-2021 Tobacco smoking stat us NHIS Never smoked tobacco [facility] Start: 11-06-2021 Tobacco use and exposure User of smo keless tobacco [facility] Start: 11-06-2021 Alcohol intake Current non-dr band tumbler of alcohol (finding) [facility] Start: 1995 Sex Assigned At Not on file [facility] Start: 10-27-2021 End: 11-06-2021 Exposure to SARS-CoV-2 (event) Not sure [facility] Gender identity Not on file [facility] Medical Equipment Procedure Code Equipment Code Equipment Origin al Text Equipment Identifier Dates To use with insu jay pen once a day in case of pump malfunction Start: 11-06-2021 Note 12-10-2021 Telephone Encounter - Marion Escobar LPN - 12/10/2021 8:17 AM EDTTelephone Encounter - Juana Mercado Ma - 12/09/2021 10:07 AM EDT Note Date & Type Note Facility 12-10-2021 Miscellaneous Notes Formattin g of this note might be different from the original. Signed [email or web address] faxed, transmission OK CLOSED Form on docs desk/basket for review from [email or web address]. Please review and sign. Needs to be faxed to [phone]. documented in this encounter [facility] Note 12-05-2021 Telephone Encounter - Juana Mercado Ma - 12/05/2021 2:51 PM EDTTelephone Encounter - Juana Mercado Ma - 12/04/2021 10:46 AM EDT Note Date & Type Note Facility 12-05-2021 Miscellaneous Notes Formattin g of this note might be different from the original. Form Faxed, Transmission ok Closed Form on docs desk/basket for review from [email or web address]. Please review and sign. Needs to be faxed to [phone]. Attached last office note. documented in this encounter [facility] Note 11-12-2021 Telephone Encounter - Juana Mercado Ma - 11/12/2021 2:31 PM EDTTelephone Encounter - Juana Mercado Ma - 11/11/2021 2:08 PM EDTTelephone Encounter - Juana Rogelio Eldridge - 11/07/2021 10:49 AM EDT Note Date & Type Note Facility 11-12-2021 Miscellaneous Notes Formattin g of this note might be different from the original. Called and spoke with patient and gave him Rudy's phone number. He will call him to set up Tandem. Closed 2nd attempt: Received message that the customer is not available and to try again later. Called patients home and left VM to call back office at [phone]. Please give message below. We are trying to get patient set up with his Tandem. I reached out to the Tandem Rep names Rudy and he tried to call patient but he did not answer. Please tell patient to call Rudy at [phone]. (When we tried to download Tandem at office visit it was not connected, it was coming up as Guest. We need this corrected so we can download at next visit.) documented in this encounter [facility] Progress note 11-06-2021 Note Date & Type Note Facility 11-06-2021 Note HNO ID: [id number] Author: Adelita Falk MD Service: ? Author Type: Physician Type: Progress Notes Filed: 11/06/2021 9:31 AM Note Text: ENDOCRINOLOGY CLINIC NOTE Mr. Segovia is a 26 year old male with history of T1DM self-referred for management of diabetes. He presented with his father HPI He was diagnosed with diabetes at age 5. He has been using pumps since soon after the diagnosis, and has been using on the Tandem pump for a year now. He had 2 DKAs, one time in 2020, and another one in 07/2021 when his glucose was high for unclear reason A1c: A1c today is 7% His A1c is mostly around 8% Current regimen: He has the tandem X2 pump but has been having difficulty obtaining Dexcom CGM. It seems that he is not familiar with the process. He does not have an account with [employer] and we were unable to download his pump. I looked at the settings on his pump manually Basal rate: 12 AM 1.35 3 AM 1.35 6 AM 1.45 10 AM 1.65 3 PM 1.60 10 PM 1.40 Total daily basal dose of 36.15 units Insulin to carb ratio: 12 AM 1: 6 Insulin sensitivity factor: 12 AM 1: 25 3 AM 1: 25 6 AM 1: 25 10 AM 1: 25 3 PM 1: 20 10 PM 1: 30 Target glucose 12 AM 130 Home glucose monitoring: He checks by fingerstick few times before eating sometimes before and sometimes after eating. Most numbers are in the 100s and 200s Hypoglycemia: He gets lows in the 50s-60s several times, mainly in the morning upon waking up Diet: He eats lunch and dinner and snacks. He always covers with insulin Physical activity: No structured physical activity Complications: Retinopathy: He has retinopathy and had laser therapy and injections Nephropathy: Normal GFR in 2013 Neuropathy: none CVS: lipid profile 2013: Cholesterol 153, LDL 86, HDL 55, TG 61 BP: 129/82 Needs labs Refer to Alex for general education and pump upgrade Lower the basal rate at 6AM to 1.35 Root canals Father has HTN Uncle has heart disease PAST MEDICAL HISTORY Diagnosis Date Type 1 diabetes mellitus (HCC) PAST SURGICAL HISTORY Procedure Laterality Date ROOT CANAL FAMILY HISTORY Problem Relation Age of Onset Hypertension Father Heart disease Paternal Uncle Social History Tobacco Use Smoking status: Never Smokeless tobacco: Never Substance Use Topics Alcohol use: No (Not in a hospital admission) Allergies As of Date: 11/06/2021 (No Known Allergies) Fully Assessed 04/07/2014 Current Outpatient Medications Medication Sig Dispense Refill insulin lispro (HUMALOG) 100 unit/mL injection use as directed via insulin pump up to 80 units daily 3 Vial 11 glucagon, human recombinant, (GLUCAGON EMERGENCY) 1 mg injection Inject 1 mg subcutaneously as directed. INJECT FOR INSULIN SHOCK 3 Each 1 insulin detemir(LEVEMIR FLEXPEN 100 UNIT/ML SUB-Q INSULIN PEN) use as directed if pump malfunctions 1 box 11 No current facility-administered medications for this visit. COMPLETE REVIEW OF SYSTEMS: 10 point review of systems was negative other than what is mentioned in the HANDP PHYSICAL EXAM: 11/06/21 0820 BP: 129/82 Pulse: 77 Resp: 16 SpO2: 97% Weight: 81.1 kg (178 lb 12.8 oz) Height: 165.7 cm (5' 5.25 ) General: NAD, alert and cooperative HEENT: EOMI, no proptosis/stare. Neck: supple with full ROM. No thyromegaly or palpable nodules. Cardiovascular: RRR, +S1 and S2, no MRG appreciated Lungs: Clear to auscultation bilaterally Abdomen: soft, non-tender, non-distended Extremities: No LE oedema Neuro: Alert and oriented Psych: Normal affect Foot exam 11/06/2021: No wounds or ulcers. Noted deformed big toe nails. Good pedal pulses bilaterally. Normal monofilament and vibration sensation bilaterally Labs: As mentioned above Assessment and Recommendations: Mr. Segovia is a 26-year-old man presented with his father to establish care for T1DM. His diabetes is poorly controlled as evidenced by the A1c level. Our goal is to achieve an A1c at or below 7% to reduce the risk of diabetes related complications. We could not download his pump data because he does not have a [employer] account, and does not use a CGM. I could not make significant changes to his regimen because of the lack of enough data. Given the reported morning hypoglycemia upon waking up, we lowered the basal rate at 6 AM to 1.35 units/h. We discussed that he should bolus 15 minutes before eating meals and snacks. We also discussed the dynamics of insulin. I informed him that he will reach out to the [employer] resources representative via secure email to assist with obtaining [employer] CGM for him. He will also contact [email or web address] and his insurance regarding that. We gave him information to contact [employer] to set up an account with them. I prescribed long-acting insulin Lantus to be used in case of pump malfunction and we went over the instructions on what to do. He would take 26 units of Lantus in case of pump malfunction, and use Humalog (more content not included)... [facility] Evaluation note Note Date & Type Note Facility documented in this encounter [facility] Summary Purpose Family History No Family History Records Found Advance Directives No Advanced Directives Records Found Reason for Referral Specialty Diagnoses / Procedures Referred By Contac t Referred To Contact Endocrinology Diagnoses Type 1 diabetes mellitus without complication (HCC) Anjum Segovia MD [address] [place] [address] Pari Watson MD [address] [address] Referral ID Status Reason Start Date Expiration Date V isits Requested Visits Authorized [id number] Authorized 05/19/2022 05/19/2023 1 1 Additional Source Comments Source Comments (unrecognize d section and content) In the event this informatio n is protected by the Federal Confidentiality of Alcohol and Drug Abuse Patient Records regulations: The Federal rules restrict any use of the information to criminally investigate or prosecute any alcohol or drug abuse patient.[facility] the event this information is protected by the Federal Confidentiality of Alcohol and Drug Abuse Patient Records regulations: The Federal rules restrict any use of the information to criminally investigate or prosecute any alcohol or drug abuse patient.[facility] the event this information is protected by the Federal Confidentiality of Alcohol and Drug Abuse Patient Records regulations: The Federal rules restrict any use of the information to criminally investigate or prosecute any alcohol or drug abuse patient.[facility] Reason for Visit (unrecogniz ed section and content) Reason Comments [employer] Form DWO insulin pump Reason Comments [employer] Care Teams (unrecognized sec tion and content) 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 This clinical summary was aggregated from multiple sources. Caution should be exercised in using it in the provision of clinical care. This summary normalizes information from multiple sources, and as a consequence, information in this document may materially change the coding, format and clinical context of patient data. In addition, data may be omitted in some cases. CLINICAL DECISIONS SHOULD BE BASED ON THE PRIMARY CLINICAL RECORDS. [employer] provides no warranty or guarantee of the accuracy or completeness of information in this document.
== END | disposition home or self-care (01) ==
LOC: MTLAB 11:23
PROVIDERS: PCP Nurse Practitioner Family; Referring Provider Internal Medicine Endocrinology, Diabetes & Metabolism; Visit Provider Internal Medicine Endocrinology, Diabetes & Metabolism
DX: E10.65 Type 1 diabetes mellitus with hyperglycemia (principal); E10.319 Type 1 diabetes mellitus with unspecified diabetic retinopathy without macular edema; Z91.199 Patient's noncompliance with other medical treatment and regimen due to unspecified reason
CPT/HCPCS: 36415; 80053; 80061; 82043; 82306; 82570; 84443; 85027

== ENCOUNTER → 2024-05-26 | Outpatient (CLI) | payer BC, SELFPAY ==
--- NOTE | 2024-05-26 14:16 | RAD_ITS ---
PROCEDURE: PA and lateral chest radiographs, two views 05/26/2024 REASON FOR EXAM: Fall. Chest pain. Mid anterior right rib pain after fall. TECHNIQUE: PA and lateral views of the chest. COMPARISON: None available FINDINGS: The cardiomediastinal silhouette is within normal limits. No pneumothorax, focal airspace consolidation, or pleural effusion. Osseous structures appear intact. RAD/Chest PA and Lateral IMPRESSION: No acute cardiopulmonary process is demonstrated. If there is persistent pain or clinical concern, follow-up chest CT evaluation may be considered. Reading Location: [facility]
--- NOTE | 2024-05-26 14:16 | RAD_ITS ---
EXAM: Four views of the right ribs CLINICAL HISTORY: Right mid anterior rib pain after a fall X 2 days COMPARISON: Chest radiograph dated May 26, 2024 TECHNIQUE: Four views of the right ribs FINDINGS: No acute displaced fracture or dislocation. RAD/Ribs Unil 2V No CXR IMPRESSION: No acute displaced fracture or dislocation. Of note, nondisplaced rib fracture s are sometimes in apparent in the initial posttrauma imaging. Reading Location: [id number]
== END | disposition home or self-care (01) ==
PROVIDERS: PCP Family Medicine; Referring Provider Family Medicine; Visit Provider Family Medicine
DX: R07.9 Chest pain, unspecified (principal); W19.XXXA Unspecified fall, initial encounter
CPT/HCPCS: 71046; 71100

== ENCOUNTER → 2024-06-16 | Outpatient (CLI) | payer BC, SELFPAY ==
[2024-06-16 13:09] LABS: Microalbumin,Random Urine < 12.0 mg/L (NO RANGE EST.); Microalbumin:Creatinine Ratio UNABLE TO CALCULATE mg/g CRE
[2024-06-16 13:39] LABS: ALB/GLOB Ratio 1.5 RATIO (0.9-2.4); AST(SGOT) 22 U/L (<=37); Alanine Aminotransfer ALT/SGPT 25 U/L (<=46); Albumin, Serum 4.3 g/dL (3.5-5.0); Alkaline Phosphatase 164 U/L (40-129); Anion Gap 11 (5-15); BUN 23 mg/dL (4-19); BUN/Creat Ratio 23.6 RATIO (10-20); Calcium,Total 9.2 mg/dL (7.6-11.0); Chloride 103 mmol/L (98-108); Cholesterol 216 mg/dL (<=200); Creatinine, Serum 0.99 mg/dL (0.70-1.20); EST Glomerular Filtration Rate 106 (>60); Globulin 2.9 g/dL (2.2-4.2); Glucose 247 mg/dL (70-99); High Density Lipoprotein 41 mg/dL; Low Density Lipoprotein Calc. 154 mg/dL; Potassium 4.4 mmol/L (3.3-5.1); Protein, Total 7.3 g/dL (5.9-8.4); Sodium Level 136 mmol/L (133-145); Total Bilirubin 0.32 mg/dL (0.00-1.30); Triglycerides 104 mg/dL; Very Low Density Lipoprotein 21 mg/dL (5-40); cholesterol:hdl ratio screen 5.26
[2024-06-16 13:45] LABS: Thyroid Stim Hormone (TSH) 0.738 uIU/mL (0.300-4.200); Vitamin D,25 Hydroxy 33.3 ng/mL (30-100)
== END | disposition home or self-care (01) ==
LOC: MTLAB 10:59
PROVIDERS: PCP Family Medicine; Referring Provider Internal Medicine Endocrinology, Diabetes & Metabolism; Visit Provider Internal Medicine Endocrinology, Diabetes & Metabolism
DX: E10.65 Type 1 diabetes mellitus with hyperglycemia (principal); E10.319 Type 1 diabetes mellitus with unspecified diabetic retinopathy without macular edema; Z46.81 Encounter for fitting and adjustment of insulin pump; R80.9 Proteinuria, unspecified; Z91.199 Patient's noncompliance with other medical treatment and regimen due to unspecified reason
CPT/HCPCS: 36415; 80053; 80061; 82043; 82306; 82570; 84443

== ENCOUNTER 2024-12-29 02:53 | Emergency (ER) | payer BC, MEDICAID, SELFPAY ==
[2024-12-29 02:54] VITALS: BP 171/98; PULSE 99; RESP 22; TEMP 36.7; O2SAT 100; BMI 32.3
[2024-12-29] MEDS: 0.9% Normal Saline (1000mL) 1,000 ML 999 ML IV (03:09)
[2024-12-29] MEDS: Ketorolac 30 MG/ML Syringe IV (03:10)
[2024-12-29 03:20] LABS: Red Blood Cells-Urine 0 SEEN /hpf (0-5); Squamous Epithelial Cells - UA 0 SEEN /hpf (0-5)
--- NOTE | 2024-12-29 03:20 | CT_ITS ---
PROCEDURE: ABDOMEN/PELVIS WITHOUT CONT 12/29/2024 REASON FOR EXAM: LEFT FLANK PAIN TECHNIQUE: Procedure Code: [id number] Modality: CT Procedure: ABDOMEN/PELVIS WITHOUT CONT Noncontrast technique limits evaluation of the abdominal and pelvic viscera. Coronal and Sagittal reconstruction series were provided. One or more dose reduction techniques were used (e.g., Automated exposure control, adjustment of the mA and/or kV according to patient size, use of iterative reconstruction technique). RADIATION DOSE SUMMARY: CTDI Vol 13.71 mGy DLP :713.64 mGycm COMPARISON: 01-Aug-2021 FINDINGS: Left distal ureteric 3 mm calculus seen just proximal to the left vesicoureteric with consequent mild proximal backpressure changes. Both kidneys are of average size and showing smooth outline with preserved parenchymal thickness. No renal calculi. No right hydronephrosis. Under distension of the urinary bladder showing mural thickening with no obvious masses. Ejaculatory ducts calcifications noted. No obvious masses related to the pelvic viscera. Average sized liver showing homogenous parenchymal attenuation. No dilated intra or extra-hepatic biliary tracts. Gall bladder showing no radiodense calculi. Normal unenhanced appearance of the pancreas with clear surrounding fat planes. The unenhanced spleen, adrenal glands, aorta and IVC are unremarkable. Splenule noted. Few pelvic phleboli. The appendix appears unremarkable with intraluminal densities. No right iliac inflammatory changes. Colonic fecal loading. The small bowel loops are unremarkable. The stomach is unremarkable. No ascites or free air. No obvious pathologically enlarged lymph nodes. Scanned osseous structures show no osseous destruction. Scanned lung bases show no obvious abnormalities. CT/Abdomen/Pelvis without Cont IMPRESSION: Left distal ureteric 3 mm calculus seen just proximal to the left vesicoureteri c with consequent mild proximal backpressure changes. Reading [facility]
[2024-12-29 03:21] LABS: Color, Urine Yellow (Yellow); Glucose, Dipstick 250 mg/dl (Normal); Hematocrit 45.2 % (40-54); Hemoglobin 15.4 g/dL (13.0-16.5); Immature Granulocytes Count 0.020 X10^3/uL (0.0-0.0); Ketone-Dipstick Negative (Negative); Leukocyte Esterase-Dipstick Negative /ul (Negative); Mean Corp Hgb Conc 34.1 g/dL (32-36); Mean Corpuscular Volume 86.6 fL (80-94); Mean Platelet Vol. 10.0 fl (6.2-12.0); NRBC Flagged by Analyzer 0 % (0-5); Nitrite-Dipstick Negative (Negative); Occult Blood-Urine 50 /ul (Negative); Platelet Count 204 K/mm3 (150-450); Protein-Dipstick 30 mg/dl (Negative); RBC Distribution Width CV 11.9 % (11.6-14.6); RBC Distribution Width SD 37.6 fl (35.1-43.9); Red Blood Count 5.22 M/mm3 (4.6-6.2); Specific Gravity, Urine 1.030 (1.002-1.030); Urine Bilirubin Dipstick Negative (Negative); White Blood Count 7.4 K/mm3 (4.4-11.0)
[2024-12-29 03:33] LABS: Mucous, Urine 2+ /hpf (<or=2+)
--- OUTSIDE RECORDS SUMMARY | 2024-12-29 03:49 | XMS RPT_ITS | CCD ---
Author Organization [facility] Care Team Providers Care Ground Water Contractor Name Role Phone Ree Singh LPN Unavailable Unavailable Kaden CARTER, Glenis Hoyos Unavailable [phone] Renée LEWISN, Hali F Unavailable Unavailabl e Dirkgeri COUNTY DIRECTOR, Hali F Unavailable Unavailabl e Francisco ALVARADO, Ree Huggins Unavailable Unavailable Kaden LEADERSHIP INTERN, Glenis Hoyos Unavailable [phone] Sagar Garnica MD Primary Care Provider Sagar Garnica MD Primary Care Provider SAGAR GARNICA Primary Care Unavailable ADELITA FALK Attending Unavailable Malys DO, Kristen A Primary Care Provider [phone] Malys, Kristen Referring Unavailable Malys, Kristen Attending Unavailable Malys, Kristen Primary Care Unavailable Malys, Kristen Primary Care Unavailable Ghotra, Catrachita Attending Unavailable Malys, Kristen Primary Care Unavailable Ghotra, Catrachita Attending Unavailable Malys, Kristen Primary Care Unavailable Ghotra, Catrachita Attending Unavailable Malys, Kristen Primary Care Unavailable Ghotra, Catrachita Attending Unavailable Raghunathan, Sherri Na Referring Unavaila ble Raghunathan, Sherri Na Attending Unavaila ble Malys, Kristen Primary Care Unavailable Medications Completed/Discontinued Medications Medication Drug Class(es) Dates Sig (Normalized) Sig (Original) amoxicillin 875 mg / clavulanate 125 mg oral tablet (8 sources) Penicillin-class Antibacterial Start: 01-16-2011 End: 01-26-2011 take 1 tablet by mouth twice daily AUGMENTIN 875-125 MG TABS One tablet by mouth twice daily AMOXICILLIN-POT CLAVULANATE [id number] Brett Dunham MD Start: 01-16-2011 End: 01-26-2011 take 1 tablet by mouth twice daily AUGMENTIN 875-125 MG TABS One tablet by mouth twice daily AMOXICILLIN-POT CLAVULANATE [id number] Brett Dunham MD azithromycin 250 mg oral tablet (16 sources) Macrolide Antimicrobial Start: 01-07-2011 End: 02-27-2015 take 2 tablets by mouth once daily, then take 1 tablet by mouth once daily ZITHROMAX Z-GEN 250 MG TABS 2 tabs PO on day one, one tab daily for 4 days AZITHROMYCIN [id number] Genoveva Ortiz LPN buPROPion (11 sources) Aminoketone bupropion HCl (WELLBUTRIN ORAL) Take by mouth. 0 Active take 1 tablet by mouth once vignesh y WELLBUTRIN XL 300 MG [id number] One tablet by mouth daily BUPROPION HCL [id number] Glenis Alfonso NP take 1 tablet by mouth once vignesh y WELLBUTRIN XL 300 MG [id number] One tablet by mouth daily BUPROPION HCL [id number] Glenis Alfonso NP Comment on above: Take by mouth. cefuroxime 250 mg oral tablet (8 sources) Cephalosporin Antibacterial Start: 10-18-19 11 End: 10-25-19 11 take 1 tablet by mouth twice daily CEFTIN 250 MG TABS One tablet by mouth twice daily. CEFUROXIME AXETIL [id number] Kd Ambrocio MD escitalopram 10 mg oral tablet (16 sources) Serotonin Reuptake Inhibitor Start: 02-27-19 16 End: 02-28-19 16 take 1 tablet by mouth once daily ESCITALOPRAM OXALATE 10 MG TABS One tablet by mouth daily ESCITALOPRAM OXALATE [id number] Kristen Julian DO FLUoxetine 20 mg oral tablet (16 sources) Serotonin Reuptake Inhibitor Start: 02-28-19 16 take 1 tablet by mouth once daily FLUOXETINE HCL 20 MG TABS 1 po daily FLUOXETINE HCL [id number] Scar Lee DO take 1 tablet by mouth once vignesh y PROZAC 40 MG CAPS One tablet by mouth daily FLUOXETINE HCL [id number] Colt Coker glucagon (rdna) 1 mg injecti on (4 sources) Start: 11-06-2021 glucagon (GLUC AGON EMERGENCY KIT, HUMAN,) 1 mg injection Inject (1)one mg for insulin shock. 2 Each 1 11/06/2021 Active Start: 12-23-2016 End: 03-25-2025 GLUCAGON EMERGENCY 1 MG KIT Use in case of low BG and unable to swallow GLUCAGON (RDNA) [id number] Glenis Alfonso NP Comment on above: Inject (1)one mg for insulin shock. HUMALOG PUMP (8 sources) Start: 02-27-2015 HUMALOG PUMP 2 HUMALOG PUMP Genoveva Ortiz LPN Start: 02-27-2015 HUMALOG PUMP 2 HUMALOG PUMP Genoveva Ortiz LPN sensor 3 ml insulin glargine 100 unt/ml pen injector (3 sources) Insulin Analog Start: 11-06-2021 insulin glargi ne (LANTUS SOLOSTAR U-100 INSULIN) 100 unit/mL (3 mL) Inject 26 units once a day in case of pump malfunction 15 mL 1 11/06/2021 Active Start: 11-06-2021 insulin glargi ne (LANTUS SOLOSTAR U-100 INSULIN) 100 unit/mL (3 mL) Inject 26 units once a day in case of pump malfunction 15 mL 1 11/06/2021 Active Comment on above: Inject 26 units once a day in case of pump malfunction insulin lispro 100 unt/ml injectable solution (3 sources) Insulin Analog Start: 11-06-2021 insulin lispro (HUMALOG U-100 INSULIN) 100 unit/mL injection use as directed via insulin pump up to 80 units daily 30 mL 5 11/06/2021 Active Comment on above: use as directed via insulin pump up to 80 units daily Insulin Syringe-Needle U-100 (BD INSULIN SYRINGE) 1 mL 25 x 1" syrg (3 sources) Start: 11-06-2021 Insulin Syringe-Needle U-100 (BD INSULIN SYRINGE) 1 mL 25 x 1" syrg To use for Humalog insulin 3 times a day in case of pump malfunction 100 Each 1 11/06/2021 Active Comment on above: To use for Humalog i nsulin 3 times a day in case of pump malfunction INSULIN ASPART SOLN (16 sources) Insulin Analogue End: 02-27-2015 NOVOLOG SOLN Sliding scale-pump INSULIN ASPART SOLN [id number] Genoveva Ortiz LPN NOVOLOG SOLN Sli ding scale-pump INSULIN ASPART SOLN [id number] Kd Ambrocio MD End: 02-27-2015 NOVOLOG SOLN Sliding scale-p ump INSULIN ASPART SOLN [id number] Genoveva Ortiz LPN lidocaine hydrochloride 20 mg/ml mucous membrane topical solution (20 sources) Antiarrhythmic, Amide Local Anesthetic Start: 01-16-2011 End: 02-27-2015 LIDOCAINE VISCOUS 2 % SOLN 5 ml to gargle and spit every 2-3 hour times a day as needed. LIDOCAINE HCL [id number] Brett Dunham MD Start: 01-07-2011 LIDOCAINE VISC OUS 2 % SOLN 5 ml to gargle and spit 3-4 times a day as needed. LIDOCAINE HCL 26605061102 Kd Ambrocio MD Start: 01-07-2011 LIDOCAINE VISC OUS 2 % SOLN 5 ml to gargle and spit 3-4 times a day as needed. LIDOCAINE HCL [id number] Kd Ambrocio MD 24 hr venlafaxine 150 mg extended release oral capsule (3 sources) Serotonin and Norepinephrine Reuptake Inhibitor take 1 capsule by mouth once daily venlafaxine ER (EFFEXOR XR) 150 mg 24 hr capsule Take 150 mg by mouth once daily. 0 Active Comment on above: Take 150 mg by mouth once daily. Problems Active Problems Problem Classification Problem Date Documented Da te Episodic/Chronic Diabetes mellitus with complications (4 sources) Type 1 diabetes mellitus; Translations: [Type I (juvenile type) diabetes mellitus without mention of complication, uncontrolled] Onset: 03-21-2008 03-21-2008 Chronic Diabetes mellitus without complication (20 sources) Diabetes mellitus without complication; Translations: [Encounter for fitting and adjustment of insulin pump] Onset: 02-28-2015 01-30-2016 Chronic Mood disorders (9 sources) Recurrent major depression; Translations: [Major depressive disorder, recurrent, mild] Onset: 02-28-2015 03-31-2015 Chronic Nonspecific chest pain (1 source) Chest pain, unspecified; Translations: [Chest pain, unspecified] Onset: 08-08-2024 Episodic Other nutritional; endocrine; and metabolic disorders (8 [...] Results Test Name Value Interpretation Reference Range Facility [facility] 06-16-2024 Albumin [Mass/Vol] 4.3 g/dL Normal 3.5-5.0 [facility] Comment on above: Order Comment: PLEAS E FAX RESULTS TO [phone] Performed By: #### L 506.1001, L500.4050, L501.9520, L502.0250, L500.4100 #### [facility] [address] [place], [place], [id number] Albumin/Globulin [Mass ratio] 1.5 {ratio} Normal 0.9-2.4 [facility] Comment on above: Order Comment: PLEAS E FAX RESULTS TO [phone] Performed By: #### L 506.1001, L500.4050, L501.9520, L502.0250, L500.4100 #### [facility] [address] [place], [address] ALK PHOS 164 U/L High 40-129 [facility] Comment on above: Order Comment: PLEAS E FAX RESULTS TO [phone] Performed By: #### L 506.1001, L500.4050, L501.9520, L502.0250, L500.4100 #### [facility] [address] [place], [address] ALT [Catalytic activity/Vol] 25 U/L Normal <=46 [facility] Comment on above: Order Comment: PLEAS E FAX RESULTS TO [phone] Performed By: #### L 506.1001, L500.4050, L501.9520, L502.0250, L500.4100 #### [facility] [address] [place], [address] AST [Catalytic activity/Vol] 22 U/L Normal <=37 [facility] Comment on above: Order Comment: PLEAS E FAX RESULTS TO [phone] Performed By: #### L 506.1001, L500.4050, L501.9520, L502.0250, L500.4100 #### [facility] [address] [place], [address] Bilirubin [Mass/Vol] 0.32 mg/dL Normal 0.00-1.30 [facility] Comment on above: Order Comment: PLEAS E FAX RESULTS TO [phone] Performed By: #### L 506.1001, L500.4050, L501.9520, L502.0250, L500.4100 #### [facility] [address] [place], [address] BUN/CRE 23.6 RATIO High 10-20 [facility] Comment on above: Order Comment: PLEAS E FAX RESULTS TO [phone] Performed By: #### L 506.1001, L500.4050, L501.9520, L502.0250, L500.4100 #### [facility] [address] [place], [address] Calcium [Mass/Vol] 9.2 mg/dL Normal 7.6-11.0 [facility] Comment on above: Order Comment: PLEAS E FAX RESULTS TO [phone] Performed By: #### L 506.1001, L500.4050, L501.9520, L502.0250, L500.4100 #### [facility] [address] [place], [address] Chloride [Moles/Vol] 103 mmol/L Normal 98-108 [facility] Comment on above: Order Comment: PLEAS E FAX RESULTS TO [phone] Performed By: #### L 506.1001, L500.4050, L501.9520, L502.0250, L500.4100 #### [facility] [address] [place], [address] CO2 [Moles/Vol] 23.0 mmol/L Normal 21.0-32.0 [facility] Comment on above: Order Comment: PLEAS E FAX RESULTS TO [phone] Performed By: #### L 506.1001, L500.4050, L501.9520, L502.0250, L500.4100 #### [facility] [address] [place], [address] Creatinine [Mass/Vol] 0.99 mg/dL Normal 0.70-1.20 [facility] Comment on above: Order Comment: PLEAS E FAX RESULTS TO [phone] Performed By: #### L 506.1001, L500.4050, L501.9520, L502.0250, L500.4100 #### [facility] [address] [place], [address] GAP 11 Normal 5-15 [facility] Comment on above: Order Comment: PLEAS E FAX RESULTS TO [phone] Performed By: #### L 506.1001, L500.4050, L501.9520, L502.0250, L500.4100 #### [facility] [address] [place], [address] GFR/1.73 sq M.predicted among non-blacks MDRD (S/P/Bld) [Vol rate/Area] 106 mL/min/{1.73_m2} Normal >60 [facility] Comment on above: Order Comment: PLEAS E FAX RESULTS TO [phone] Result Comment: mL/m in/1.73m2 CKD-EPI Creatinine Equation (2020) Performed By: #### L 506.1001, L500.4050, L501.9520, L502.0250, L500.4100 #### [facility] [address] [place], [address] Globulin (S) [Mass/Vol] 2.9 g/dL Normal 2.2-4.2 [facility] Comment on above: Order Comment: PLEAS E FAX RESULTS TO [phone] Performed By: #### L 506.1001, L500.4050, L501.9520, L502.0250, L500.4100 #### [facility] [address] [place], [address] Glucose [Mass/Vol] 247 mg/dL High 70-99 [facility] Comment on above: Order Comment: PLEAS E FAX RESULTS TO [phone] Performed By: #### L 506.1001, L500.4050, L501.9520, L502.0250, L500.4100 #### [facility] [address] [place], [address] Potassium [Moles/Vol] 4.4 mmol/L Normal 3.3-5.1 [facility] Comment on above: Order Comment: PLEAS E FAX RESULTS TO [phone] Performed By: #### L 506.1001, L500.4050, L501.9520, L502.0250, L500.4100 #### [facility] [address] [place], [address] Sodium [Moles/Vol] 136 mmol/L Normal 133-145 [facility] Comment on above: Order Comment: PLEAS E FAX RESULTS TO [phone] Performed By: #### L 506.1001, L500.4050, L501.9520, L502.0250, L500.4100 #### [facility] [address] [place], [address] T PROT 7.3 g/dL Normal 5.9-8.4 [facility] Comment on above: Order Comment: PLEAS E FAX RESULTS TO [phone] Performed By: #### L 506.1001, L500.4050, L501.9520, L502.0250, L500.4100 #### [facility] [address] [place], [address] Urea nitrogen [Mass/Vol] 23 mg/dL High 4-19 [facility] Comment on above: Order Comment: PLEAS E FAX RESULTS TO [phone] Performed By: #### L 506.1001, L500.4050, L501.9520, L502.0250, L500.4100 #### [facility] [address] [place], [address] Lipid Profileon 06-16-2024 CHOL:HDL 5.26 Normal [facility] Comment on above: Order Comment: PLEAS E FAX RESULTS TO [phone] Performed By: #### L 506.1001, L500.4050, L501.9520, L502.0250, L500.4100 #### [facility] [address] [place], [address] Cholesterol [Mass/Vol] 216 mg/dL High <=200 [facility] Comment on above: Order Comment: PLEAS E FAX RESULTS TO [phone] Result Comment: Chol esterol level, Desirable <200 mg/dL Borderline high cholesterol 200-239 mg/dL High cholesterol >=240 mg/dL Recommendations of the NCEP Adult Treatment Panel for the following risk-cutoff thresholds for the [place] population. Performed By: #### L 506.1001, L500.4050, L501.9520, L502.0250, L500.4100 #### [facility] [address] [place], [address] Cholesterol in HDL [Mass/Vol] 41 mg/dL Normal [facility] Comment on above: Order Comment: PLEAS E FAX RESULTS TO [phone] Result Comment: Elizabeth onal Cholesterol Education Program (NCEP) guidelines: <40 mg/dL: Low HDL-cholesterol (major risk factor for CHD) >= 60 mg/dL: High HDL-cholesterol (negative risk factor for CHD) HDL-cholesterol is affected by a number of factors, e.g. smoking, exercise, hormones, sex and age. Performed By: #### L 506.1001, L500.4050, L501.9520, L502.0250, L500.4100 #### [facility] [address] [place], [address] Cholesterol in LDL [Mass/Vol] 154 mg/dL Normal [facility] Comment on above: Order Comment: PLEAS E FAX RESULTS TO [phone] Result Comment: Bord zaaihu=542-766 mg/dL Higher Ricr=956 mg/dL or greater Performed By: #### L 506.1001, L500.4050, L501.9520, L502.0250, L500.4100 #### [facility] [address] [place], [address] Cholesterol in VLDL [Mass/Vol] 21 mg/dL Normal 5-40 [facility] Comment on above: Order Comment: PLEAS E FAX RESULTS TO [phone] Performed By: #### L 506.1001, L500.4050, L501.9520, L502.0250, L500.4100 #### [facility] [address] [place], [address] Triglyceride [Mass/Vol] 104 mg/dL Normal [facility] Comment on above: Order Comment: PLEAS E FAX RESULTS TO [phone] Result Comment: The drugs N-Acetylcysteine and Metamizole may falsely depress this assay. Normal range: <150 mg/dL Borderline High: 150-199 mg/dL High: 200-499 mg/dL Very High: >500 mg/dL Performed By: #### L 506.1001, L500.4050, L501.9520, L502.0250, L500.4100 #### [facility] [address] [place], [place], [address] Microalb:Creat Ratio,Random URon 06-16-2024 Creatinine [Mass/Vol] 132.00 mg/dL Normal 39.00-259.00 [facility] Comment on above: Performed By: #### L 506.1001, L500.4050, L501.9520, L502.0250, L500.4100 #### [facility] [address] [place], [address] MALB:CREAT UNABLE TO CALCULATE Normal [facility] Comment on above: Performed By: #### L 506.1001, L500.4050, L501.9520, L502.0250, L500.4100 #### [facility] [address] [place], [place], [address] MICROALBUMIN,UR < 12.0 Normal NO RANGE EST. [facility] Comment on above: Performed By: #### L 506.1001, L500.4050, L501.9520, L502.0250, L500.4100 #### [facility] [address] [place], [address] Thyroid Stim Hormone (TSH)on 06-16-2024 TSH 0.738 uIU/mL Normal 0.300-4.200 [facility] Comment on above: Order Comment: PLEAS E FAX RESULTS TO [phone] Performed By: #### L 506.1001, L500.4050, L501.9520, L502.0250, L500.4100 #### [facility] [address] [place], [address] Vitamin D,25 Hydroxyon 06-16 Vitamin D 25-OH 33.3 ng/mL Normal 30-100 [facility] Comment on above: Order Comment: PLEAS E FAX RESULTS TO [phone] Result Comment: Rebekah min D Status Deficiency: <20 ng/mL (50nmol/L) Insufficiency: 20-30 ng/mL (50-75 nmol/L) Sufficiency: 30-100 ng/mL (75-250 nmol/L) Toxicity: >100 ng/mL (>250 nmol/L) Performed By: #### L 506.1001, L500.4050, L501.9520, L502.0250, L500.4100 #### [facility] [address] [place], [address] Chest PA and Lateralon 05-26 Chest PA and Lateral [facility] [address] [place] [address] Chest PA and Lateral MR#: [id number] Acct: [id number] Name: HENRY SEGOVIA Rep #: [id number] : 1995 M 28 From: Narciso Montoya i, DO PCP: Dr. Kristen Julian DO Status: REG CLI Study: Chest PA and Lateral Date of Exam: 05/26/24 Exam# [id number] Ordering Dr: Kristen Julian DO PROCEDURE: PA and lateral chest radiographs, two views 05/26/2024 REASON FOR EXAM: Fall. Chest pain. Mid anterior right rib pain after fall. TECHNIQUE: PA and lateral views of the chest. COMPARISON: None available FINDINGS: The cardiomediastinal silhouette is within normal limits. No pneumothorax, focal airspace consolidation, or pleural effusion. Osseous structures appear intact. RAD/Chest PA and Lateral IMPRESSION: No acute cardiopulmonary process is demonstrated. If there is persistent pain or clinical concern, follow-up chest CT evaluation may be considered. Reading [facility] CC: Dr. Kristen Julian DO Electric Freight Car Operator: Signed Normal [facility] Ribs Unil 2V No CXRon 2024 Ribs Unil 2V No CXR [facility] [address] [place] [address] Ribs Unil 2V No CXR MR#: [id number] Acct: [id number] Name: HENRY SEGOVIA Rep #: [id number] : 1995 M 28 From: Ginny Schulte MD PCP: Dr. Kristen Julian DO Status: REG CLI Study: Ribs Unil 2V No CXR Date of Exam: 05/26/24 Exam# [id number] Ordering Dr: Kristen Julian DO EXAM: Four views of the right ribs CLINICAL HISTORY: Right mid anterior rib pain after a fall X 2 days COMPARISON: Chest radiograph dated May 26, 2024 TECHNIQUE: Four views of the right ribs FINDINGS: No acute displaced fracture or dislocation. RAD/Ribs Unil 2V No CXR IMPRESSION: No acute displaced fracture or dislocation. Of note, nondisplaced rib fractures are sometimes in apparent in the initial posttrauma imaging. Reading Location: [id number] CC: Dr. Kristen Julian DO Electric Freight Car Operator: Signed Normal [facility] MR/BMS.BPon 04-19-2024 MR/BMS.BP [address], [address] [place] [address] OFFICE VISIT Date of Service: 04/19/24 MR#: [id number] Acct: [id number] Name: HENRY SEGOVIA Rep #: [id number] : 1995 Provider: CHEYENNE mark Age/Sex: 28/M Location[place] [facility] Status: Signed Intake Vital Signs 03/08/24 13:39 04/19/24 14:02 Height 5 ft 6 in 5 ft 6 in BP 148/95 H 117/75 Blood Pressure Location Lt brachial Lt brachial Position Sitting Sitting Respiration 16 16 Pulse 99 64 Pulse Source Monitor Monitor BP Intake Visit Reasons: 6 week follow up Accompanied by: Self Allergies No Known Allergies Allergy (Verified 10/28/23 13:24) Medications ???Medication ???Instructions ???Recorded ???Confirmed ???Type glucagon (human recombinant) 1 mg 1 mg IM ONCE 05/27/17 04/19/24 Hi story injection kit (Glucagon Emergency Kit (human-recomb)) Contour Next Test Strips (blood #250 ea 05/11/18 04/19/24 Rx sugar diagnostic) flash glucose sensor (FreeStyle #2 ea 09/16/19 04/19/24 Rx Severiano 14 Day Sensor kit) flash glucose scanning reader #2 ea 04/09/20 04/19/24 Rx (FreeStyle Severiano 14 Day [place]) insulin lispro 100 unit/mL See Rx Instructions subcut QDAY 04/19/24 Rx subcutaneous solution (Humalog e10.9 #30 mL U-100 Insulin) glucagon 1 mg solution for 1 mg subcut Q20M PRN hypoglycemia 06/03/23 04/19/24 Rx injection (Glucagon Emergency Kit) #1 ea cholecalciferol (vitamin D3) 250 250 mcg PO QWEEK 03/08/24 04/19/24 History mcg (10,000 unit) capsule lisinopril 5 mg tablet 5 mg PO QDAY 04/19/24 04/19/24 His tory sertraline 100 mg tablet 100 mg PO DAILY #90 tabs 04/19/24 04/19/24 Rx PFSH Medical History Lipohypertrophy Presence of insulin pump Diabetes mellitus type 1, uncontrolled, insulin dependent Hepatitis H/O emotional problems High cholesterol Diabetes type 1, controlled Surgical History H/O adenoidectomy History of placement of ear tubes Family History Father Hypertension Chronic headaches Mother Thyroid disorder Depression Other CVA (cerebral vascular accident) Cancer Heart disease Social History Smoking Status: Never smoker second hand exposure: No alcohol intake: current alcohol intake frequency: holidays/special occasions only substance use type: does not use what type of physical activity do you participate in: none HPI History of Present Illness History provided by: patient Chief complaint: Anxiety/Depression HPI: Henry Segovia is a 28 year old male patient presenting today for a follow up evaluation. States him and his girlfriend were working at a [employer] shop and only worked there for 2 days due to his girl friend being accused of smoking in the bathroom. Has been applying for other jobs and is hopeful to get something new lined up. Does report the increase in sertraline has been beneficial in terms of being more level most of the time. Admits to feeling less depression. Does feel depression is related more to situation things. Denies SI/HI. Denies panic attacks. Admits to sometimes feelings of anxiety but is unsure if it is more irritability related to current life stressors. Sleep has been fine. Appetite has been fine. Previous similar episode: Yes Age of first onset of symptoms: 11-20 years Review of Systems Constitutional Reports: fatigue; Denies: fever(s), chills or change in weight Eyes Denies: change in vision or blurry vision Ears, Nose, Mouth, Throat Denies: throat pain or neck pain Cardiovascular Denies: chest pain, palpitations or dyspnea Respiratory Denies: dyspnea or wheezing Gastrointestinal Denies: abdominal pain, nausea, vomiting, diarrhea or constipation Genitourinary Denies: dysuria, urinary frequency or urinary urgency Musculoskeletal Denies: back pain or neck pain Integumentary/Breast Denies: rash, pruritus or erythema Neurological Denies: headache(s) Psychiatric Reports: irritability, memory loss and difficulty concentrating; Denies: anxiety, mood swings, panic attacks, change in sleep pattern, hopelessness, loss of interest, paranoia, visual hallucinations, auditory hallucinations, suicidal ideation or homicidal ideation Endocrine Reports: fatigue Hematologic/Lymphati c Reports: easy bruising Allergic/Immunologic Denies: wheezing Exam Mental Status Exam - Psych Appearance casually dressed, adequately groomed and no apparent distress Attitude cooperative and calm Activity/Motor Behavior MSE activity/motor behavior finding no adventitious movements and appropriate eye contact Speech regular rate, regular volume and (more content not included)... Normal [facility] MR/BMS.BPon 03-08-2024 MR/BMS.BP [facility] [address] [facility] [address], [address] [place] [address] OFFICE VISIT Date of Service: 03/08/24 MR#: [id number] Acct: [id number] Name: VONDAHENRY ALVARADO Rep #: [id number] : 1995 Provider: CHEYENNE mark Age/Sex: 28/M [place] [facility] Status: Signed Intake Vital Signs 10/28/23 13:18 03/08/24 13:39 Height 5 ft 6 in 5 ft 6 in Weight: 184 lb BMI 29.7 BP 121/78 H 148/95 H Blood Pressure Location Lt brachial Position Sitting Respiration 17 16 Pulse 68 99 Pulse Source Monitor Pulse Oximetry (%) 97 BP Intake Visit Reasons: Follow up Accompanied by: Self Allergies No Known Allergies Allergy (Verified 10/28/23 13:24) Medications ???Medication ???Instructions ???Recorded ???Confirmed ???Type glucagon (human recombinant) 1 mg 1 mg IM ONCE 05/27/17 03/08/24 History injection kit (Glucagon Emergency Kit (human-recomb)) Contour Next Test Strips (blood #250 ea 05/11/18 03/08/24 Rx sugar diagnostic) flash glucose sensor (FreeStyle #2 ea 09/16/19 03/08/24 Rx Severiano 14 Day Sensor kit) flash glucose scanning reader #2 ea 04/09/20 03/08/24 Rx (FreeStyle Severiano 14 Day Rodeo) insulin lispro 100 unit/mL See Rx Instructions subcut QDAY 05/15/23 03/08/24 Rx subcutaneous solution (Humalog e10.9 #30 mL U-100 Insulin) glucagon 1 mg solution for 1 mg subcut Q20M PRN hypoglycemia 06/03/23 03/08/24 Rx injection (Glucagon Emergency Kit) #1 ea cholecalciferol (vitamin D3) 250 250 mcg PO QWEEK 03/08/24 03/08/24 History mcg (10,000 unit) capsule sertraline 100 mg tablet 100 mg PO DAILY #30 tabs 03/08/24 03/08/24 Rx PFSH Medical History Lipohypertrophy Presence of insulin pump Diabetes mellitus type 1, uncontrolled, insulin dependent Hepatitis H/O emotional problems High cholesterol Diabetes type 1, controlled Surgical History H/O adenoidectomy History of placement of ear tubes Family History Father Hypertension Chronic headaches Mother Thyroid disorder Depression Other CVA (cerebral vascular accident) Cancer Heart disease Social History Smoking Status: Never smoker second hand exposure: No alcohol intake: current alcohol intake frequency: holidays/special occasions only substance use type: does not use what type of physical activity do you participate in: none HPI History of Present Illness History provided by: patient HPI: Henry Segovia is a 28 year old male patient presenting today for a follow up evaluation. Reports his girlfriend moved in with him and his parents in the beginning of December. 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 Has been feelings depressed since his last appointment. Has been taking sertraline and is unsure of effectiveness. Depression is daily, but thinks when he gets a job he will feel better. Denies SI/HI. Has not been having increase in anxiety due to the recent political events. Denies feeling anxious in his personal life. Denies panic attacks. Has been sleeping well. 6-8 hours per night. Denies feeling well rested. Denies difficulties falling asleep or staying asleep. Denies any changes in appetite or in weight recently. Previous similar episode: Yes Age of first onset of symptoms: 11-20 years Review of Systems Constitutional Reports: fatigue; Denies: fever(s), chills or change in weight Eyes Denies: change in vision or blurry vision Ears, Nose, Mouth, Throat Denies: throat pain or neck pain Cardiovascular Denies: chest pain, palpitations or dyspnea Respiratory Denies: dyspnea or wheezing Gastrointestinal Denies: abdominal pain, nausea, vomiting, diarrhea or constipation Genitourinary Denies: dysuria, urinary frequency or urinary urgency Musculoskeletal Denies: back pain or neck pain Integumentary/Breast Denies: rash, pruritus or erythema Neurological Denies: headache(s) Psychiatric Reports: hopelessness, loss of interest, memory loss and difficulty concentrating; Denies: anxiety, mood swings, panic attacks, change in sleep pattern, irritability, paranoia, visual hallucinations, auditory hallucinations, suicidal ideation or homicidal ideation Endocrine Reports: fatigue Hematologic/Lymphati c Reports: easy bruising Allergic/Immunologic Denies: wheezing Exam Mental Status Exam - Psych Appearance casually dressed, adequately groomed and no apparent distress Attitude cooperative and calm Activity/Motor Behavior MSE activity/motor behavior finding no adventitious movements and appropriate eye contact Speech regular rate, regular volume and regular prosody (more content not included)... Normal [facility] MR/BMS.BPon 10-28-2023 MR/BMS.[facility] Psychiatry [address], [address] [place] [address] OFFICE VISIT Date of Service: 10/28/23 MR#: [id number] Acct: [id number] Name: HENRY SEGOVIA Rep #: [id number] : 1995 Provider: CHEYENNE mark Age/Sex: 28/M Location[place] [facility] Status: Signed Intake Vital Signs 09/16/23 09:16 10/28/23 13:18 Height 5 ft 6 in 5 ft 6 in Weight: 182 lb 184 lb BMI 29.3 29.7 BP 133/78 H 121/78 H Blood Pressure Location Rt brachial Position Sitting Respiration 17 Pulse 76 68 Pulse Source Monitor Pulse Oximetry (%) 97 BP Intake Visit Reasons: 6 wk FU Accompanied by: Self Allergies No Known Allergies Allergy (Verified 10/28/23 13:24) Medications ???Medication ???Instructions ???Recorded ???Confirmed ???Type glucagon (human recombinant) 1 mg 1 mg IM ONCE 05/27/17 10/28/23 History injection kit (Glucagon Emergency Kit (human-recomb)) Contour Next Test Strips (blood #250 ea 05/11/18 10/30/20 Rx sugar diagnostic) flash glucose sensor (FreeStyle #2 ea 09/16/19 10/30/20 Rx Severiano 14 Day Sensor kit) flash glucose scanning reader #2 ea 04/09/20 10/30/20 Rx (FreeStyle Severiano 14 Day Rodeo) insulin lispro 100 unit/mL See Rx Instructions subcut QDAY 05/15/23 10/28/23 Rx subcutaneous solution (Humalog e10.9 #30 mL U-100 Insulin) glucagon 1 mg solution for 1 mg subcut Q20M PRN hypoglycemia 06/03/23 10/28/23 Rx injection (Glucagon Emergency Kit) #1 ea sertraline 50 mg tablet 50 mg PO DAILY #30 tabs 09/16/23 10/28/23 Rx PFSH Medical History Lipohypertrophy Presence of insulin pump Diabetes mellitus type 1, uncontrolled, insulin dependent Hepatitis H/O emotional problems High cholesterol Diabetes type 1, controlled Surgical History H/O adenoidectomy History of placement of ear tubes Family History Father Hypertension Chronic headaches Mother Thyroid disorder Depression Other CVA (cerebral vascular accident) Cancer Heart disease Social History Smoking Status: Never smoker second hand exposure: No alcohol intake: current alcohol intake frequency: holidays/special occasions only substance use type: does not use what type of physical activity do you participate in: none HPI History of Present Illness History provided by: patient HPI: Henry Segovia is a 28 year old male patient presenting today for a follow up evaluation. Patient reports he is doing well. Does report he has been going to bed later but denies any issues with sleep. Denies issues falling asleep or staying asleep. 6-7 hours per night. Does report being inconsistent with his medication. Has been taking the medication less than half of the time. Does still feel depressed but feels it has improved some. Feels he is able to control his mood better when he is on medication. Denies SI/HI. Does report some mild anxiety about his father's health and his father's unemployment. Plan is for his father to have surgery for his hip in November. Does report still struggling with feelings of worthlessness and hopelessness. Previous similar episode: Yes Age of first onset of symptoms: 11-20 years Review of Systems Constitutional Reports: fatigue; Denies: fever(s), chills or change in weight Eyes Denies: change in vision or blurry vision Ears, Nose, Mouth, Throat Denies: throat pain or neck pain Cardiovascular Denies: chest pain, palpitations or dyspnea Respiratory Denies: dyspnea or wheezing Gastrointestinal Denies: abdominal pain, nausea, vomiting, diarrhea or constipation Genitourinary Denies: dysuria, urinary frequency or urinary urgency Musculoskeletal Denies: back pain or neck pain Integumentary/Breast Denies: rash, pruritus or erythema Neurological Denies: headache(s) Psychiatric Reports: anxiety, hopelessness, loss of interest, irritability, memory loss and difficulty concentrating; Denies: mood swings, panic attacks, change in sleep pattern, paranoia, visual hallucinations, auditory hallucinations, suicidal ideation or homicidal ideation Endocrine Reports: fatigue Hematologic/Lymphati c Reports: easy bruising Allergic/Immunologic Denies: wheezing Exam Mental Status Exam - Psych Appearance casually dressed, adequately groomed and no apparent distress Attitude cooperative and calm Activity/Motor Behavior MSE activity/motor behavior finding no adventitious movements and appropriate eye contact Speech regular rate, regular volume and regular prosody Mood OK Affect full range Thought Process linear, logical and coherent Thought Content no delusions and no hallucinations Suicidal Ideat (more content not included)... Normal [facility] MR/BMS.BPon 09-16-2023 MR/BMS.BP [facility], [address] [place] [address] OFFICE VISIT Date of Service: 09/16/23 MR#: [id number] Acct: [id number] Name: HENRY SEGOVIA Rep #: [id number] : 1995 Provider: CHEYENNE mark Age/Sex: 28/M Location: [facility] Status: Signed Intake Vital Signs 08/01/21 09:30 09/16/23 09:14 09/16/23 09:16 Height 5 ft 6 in 5 ft 6 in 5 ft 6 in Weight: 182 lb BMI 29.3 BP 133/78 H Blood Pressure Location Rt brachial Position Sitting Pulse 76 Pulse Source Monitor BP Intake Visit Reasons: Depression Clinical Rehabilitation Aide Required: No Accompanied by: Self Is patient in pain?: No Allergies No Known Allergies Allergy (Verified 09/16/23 09:17) Medications ???Medication ???Instructions ???Recorded ???Confirmed ???Type glucagon (human recombinant) 1 mg 1 mg IM ONCE 05/27/17 09/16/23 History injection kit (Glucagon Emergency Kit (human-recomb)) Contour Next Test Strips (blood #250 ea 05/11/18 10/30/20 Rx sugar diagnostic) flash glucose sensor (FreeStyle #2 ea 09/16/19 10/30/20 Rx Severiano 14 Day Sensor kit) flash glucose scanning reader #2 ea 04/09/20 10/30/20 Rx (FreeStyle Severiano 14 Day Rodeo) insulin lispro 100 unit/mL See Rx Instructions subcut QDAY 05/15/23 09/16/23 Rx subcutaneous solution (Humalog e10.9 #30 mL U-100 Insulin) glucagon 1 mg solution for 1 mg subcut Q20M PRN hypoglycemia 06/03/23 09/16/23 Rx injection (Glucagon Emergency Kit) #1 ea cholecalciferol (vitamin D3) 1,250 1,250 mcg PO QWEEK 09/16/23 09/16/23 History mcg (50,000 unit) capsule sertraline 50 mg tablet 50 mg PO DAILY #30 tabs 09/16/23 09/16/23 Rx Current gender identity: male Nurse's Note: Presents to the office today to establish new patient care. [facility] Medical History (Updated 09/16/23 @ 10:07 by CHEYENNE Lira) Lipohypertrophy Presence of insulin pump Diabetes mellitus type 1, uncontrolled, insulin dependent Hepatitis H/O emotional problems High cholesterol Diabetes type 1, controlled Surgical History H/O adenoidectomy History of placement of ear tubes Family History Father Hypertension Chronic headaches Mother Thyroid disorder Depression Other CVA (cerebral vascular accident) Cancer Heart disease Social History Smoking Status: Never smoker second hand exposure: No alcohol intake: current alcohol intake frequency: holidays/special occasions only substance use type: does not use what type of physical activity do you participate in: none HPI History of Present Illness History provided by: patient Chief complaint: depression HPI: Henry Segovia is a 28 year old male patient presenting today for an intake evaluation. Is struggling with an increase in depression. Is not currently on medication. Does report that he and his parents are working on doing real [employer] and have been working toward this for a while and feels burnt out from this. Sleep: Denies sleep being an issue. 6-7 hours per night. Denies daytime napping. Denies an issue falling asleep or staying asleep. Interest: Can find adele in things but feels it is much decreased. Enjoys movies, listening to music, and playing games. Does report feeling depressed/low nearly every day. Energy: Denies feeling well rested. Reports energy to be low. Reports a large issue with motivation. Guilt: Does report feelings of worthlessness, hopelessness, and guilt. Tried to talk himself out of this when he does think this way. Concentration: Does report struggling with concentration, focus, and attention at times. Feels his mind wanders at times. Does report being easily distracted. Appetite: Appetite has been fine. Denies any changes in weight. Psychomotor: WNL Suicide: Denies SI/HI. Memory: Reports feeling very forgetful. USP memory intact. Reports a mild issue with short term memory. Denies feeling like he misplaces things frequently. Anxiety: Denies feelings of anxiety. Denies ever having a panic attack. Obsessions: Denies Compulsions: Denies Ness: Denies PTSD: Does report some emotional trauma from a relationship a few years ago. Feels this has impacted him today. Psychosis: Denies AVH. Denies paranoia. Previous similar episode: Yes Age of first onset of symptoms: 11-20 years Developmental History Developmental History: Siblings: 1 brother, patient is younger Born Raised: [facility] Education: [employer], 1 year of college Employment: unemployed Living Status: Lives with parents Legal Issues: Denies Family: Parents are Children: None Psychiatric History Previous psychiatric treatment history: No Previous psychiatric diagnoses: (more content not included)... [facility] 12-09[facility]2021 [facility] Telephone (ENDMED) HENRY SEGOVIA ([id number]) 1995 M Date Time Provider Department 12/09/21 ADELITA FALK During your visit today, we recorded the following information about you: Bhupendra Rodas Ma 12/09/2021 10:07 AM Signed Form on docs desk/basket for review from [employer]. Please review and sign. Needs to be faxed to [phone]. Marion Escobar LPN 12/10/2021 8:19 AM Addendum Signed [employer] form faxed, transmission OK CLOSED Allergies As of Date: 12/09/2021 (No Known Allergies) Date Reviewed: 11/06/2021 Reviewed by: Jazz Dominguez MA - Fully Assessed Reason for Visit: [employer] Form [Other] Cmt: CGM Sensors and Transmitters Prescriptions as of 04/18/2022 - bupropion HCl (WELLBUTRIN ORAL) Take by mouth. - venlafaxine ER (EFFEXOR XR) 150 mg 24 hr capsule Take 150 mg by mouth once daily. - glucagon (GLUCAGON EMERGENCY KIT, HUMAN,) 1 mg injection Inject (1)one mg for insulin shock. - insulin glargine (LANTUS SOLOSTAR U-100 INSULIN) 100 unit/mL (3 mL) Inject 26 units once a day in case of pump malfunction - insulin needles, DISPOSABLE, (PEN NEEDLE) 31 gauge x 5/16" To use with insulin pen once a day in case of pump malfunction - Insulin Syringe-Needle U-100 (BD INSULIN SYRINGE) 1 mL 25 x 1" syrg To use for Humalog insulin 3 times a day in case of pump malfunction - insulin lispro (HUMALOG U-100 INSULIN) 100 unit/mL injection use as directed via insulin pump up to 80 units daily Problem List As Of Date 12/09/2021 Noted Resolved DIABETES MELLITUS TYPE I UNCONTR UNCOMPL [IMO00*03/21/2008 Encounter Status:Closed by BHUPENDRA RODAS MA on 04/18/22 [facility] 12-04-2021 CNPN Telephone (ENDMED) HENRY SEGOVIA ([id number]) 1995 M Date Time Provider Department 12/04/21 ADELITA FALK During your visit today, we recorded the following information about you: Bhupendra Rodas Ma 12/04/2021 10:47 AM Signed Form on [employer] desk/basket for review from [employer]. Please review and sign. Needs to be faxed to [phone]. Attached last office note. Bhupendra Rodas Ma 12/05/2021 2:51 PM Signed Form Faxed, Transmission ok Closed Allergies As of Date: 12/04/2021 (No Known Allergies) Date Reviewed: 11/06/2021 Reviewed by: Jazz Dominguez MA - Fully Assessed Reason for Visit: [employer] Form [Other] Cmt: DWO insulin pump Prescriptions as of 12/05/2021 - bupropion HCl (WELLBUTRIN ORAL) Take by mouth. - venlafaxine ER (EFFEXOR XR) 150 mg 24 hr capsule Take 150 mg by mouth once daily. - glucagon (GLUCAGON EMERGENCY KIT, HUMAN,) 1 mg injection Inject (1)one mg for insulin shock. - insulin glargine (LANTUS SOLOSTAR U-100 INSULIN) 100 unit/mL (3 mL) Inject 26 units once a day in case of pump malfunction - insulin needles, DISPOSABLE, (PEN NEEDLE) 31 gauge x 5/16" To use with insulin pen once a day in case of pump malfunction - Insulin Syringe-Needle U-100 (BD INSULIN SYRINGE) 1 mL 25 x 1" syrg To use for Humalog insulin 3 times a day in case of pump malfunction - insulin lispro (HUMALOG U-100 INSULIN) 100 unit/mL injection use as directed via insulin pump up to 80 units daily Problem List As Of Date 12/04/2021 Noted Resolved DIABETES MELLITUS TYPE I UNCONTR UNCOMPL [IMO00*03/21/2008 Encounter Status:Closed by BHUPENDRA RODAS MA on [facility]DataS[facility] HENRY SEGOVIA ([id number]) 1995 Date Time Provider Department 11/07/21 ADELITA FALK During your visit today, we recorded the following information about you: Bhupendra Rodas Ma 11/07/2021 10:54 AM Signed Called patients home and left VM to call back office at [phone]. Please give message below. We are trying to get patient set up with his Tandem. I reached out to the Tandem Rep names Rudy and he tried to call patient but he did not answer. Please tell patient to call Rudy at [phone]. (When we tried to download Tandem at office visit it was not connected, it was coming up as Guest. We need this corrected so we can download at next visit.) Bhupendra Rodas Ma 11/11/2021 2:09 PM Signed 2nd attempt: Received message that the customer is not available and to try again later. Bhupendra Rodas Ma 11/12/2021 2:32 PM Signed Called and spoke with patient and gave him Rudy's phone number. He will call him to set up Tandem. Closed Allergies As of Date: 11/07/2021 (No Known Allergies) Date Reviewed: 11/06/2021 Reviewed by: Jazz Dominguez MA - Fully Assessed Reason for Visit: Tandem Setup [Other] Prescriptions as of 11/12/2021 - bupropion HCl (WELLBUTRIN ORAL) Take by mouth. - venlafaxine ER (EFFEXOR XR) 150 mg 24 hr capsule Take 150 mg by mouth once daily. - glucagon (GLUCAGON EMERGENCY KIT, HUMAN,) 1 mg injection Inject (1)one mg for insulin shock. - insulin glargine (LANTUS SOLOSTAR U-100 INSULIN) 100 unit/mL (3 mL) Inject 26 units once a day in case of pump malfunction - insulin needles, DISPOSABLE, (PEN NEEDLE) 31 gauge x 5/16" To use with insulin pen once a day in case of pump malfunction - Insulin Syringe-Needle U-100 (BD INSULIN SYRINGE) 1 mL 25 x 1" syrg To use for Humalog insulin 3 times a day in case of pump malfunction - insulin lispro (HUMALOG U-100 INSULIN) 100 unit/mL injection use as directed via insulin pump up to 80 units daily Problem List As Of Date 11/07/2021 Noted Resolved DIABETES MELLITUS TYPE I UNCONTR UNCOMPL [IMO00*03/21/2008 Encounter Status:Closed by BHUPENDRA RODAS MA on 11/12/21 [facility] CNOVon 11-06-2021 CNOV Office Visit (ISAK) HENRY SEGOVIA ([id number]) 1995 M Date Time Provider Department 11/06/21 8:00 AM ADELITA FALK During your visit today, we recorded the following information about you: Pulse Respiration Blood pressure Weight 77/minute 16/minute 129/82 81.1 kg Height 1.657 m Adelita Falk MD 11/06/2021 9:31 AM Signed ENDOCRINOLOGY CLINIC NOTE Mr. Segovia is a [...] He does not have an account with tandem and we were unable to download his [...] therapy and injections Nephropathy: Normal GFR in 2012 Neuropathy: none [facility]: lipid profile 2013: Cholesterol [...] pump malfunctions 1 box 11 No current facility-administere d medications for this visit. COMPLETE REVIEW OF SYSTEMS: 10 point review of systems was negative other than what is mentioned in the HANDP PHYSICAL EXAM: 11/06/21 0820 BP: 129/82 Pulse: 77 Resp: 16 SpO2: 97% Weight: 81.1 kg (178 lb 12.8 oz) Height: 165.7 cm (5' 5.25") General: NAD, alert and cooperative HEENT: EOMI, [...] data because he does not have a tandem account, and does not use a CGM. [...] he will reach out to the Dexcom internet sales representative via secure email to assist with obtaining Dexcom CGM for him. He will also contact [employer] and his insurance regarding that. We gave (more content not included)... Normal [facility] Office Visiton 08-11-2016 Documentation of current medications (procedure) Done Invalid Interpretation Code [facility] Work Phone: Office Visit: Follow up DMon 07-31-2016 Dietary management education, guidance, and counseling (procedure) yes Invalid Interpretation Code [facility] Work Phone: Documentation of current medications (procedure) Done Invalid Interpretation Code [facility] Work Phone: Fall risk assessment No Invalid Interpretation Code [facility] Work Phone: Protein mass conc Done [facility] Work Phone: Tobacco smoking status NHIS Never Invalid Interpretation Code [facility] Work Phone: Tobacco smoking status NHIS Never smoker [facility] Work Phone: Tobacco use [facility] Never smoker Invalid Interpretation Code [facility] Work Phone: Lab Report: Hemoglobin A1con 07-10-2016 HbA1c 10.3 % High 4.2-6.3 [facility] Work Phone: Lab Report: Lipid Profileon 07-10-2016 Cholesterol 173 mg/dL Invalid Interpretation Code 200 [facility] Work Phone: HDL Cholesterol 44 mg/dL Invalid Interpretation Code [facility] Work Phone: LDL Cholesterol 112 mg/dL Invalid Interpretation Code 0-130 [facility] Work Phone: Triglyceride 83 mg/dL Invalid Interpretation Code [facility] Work Phone: very low density lipoproteins 17 mg/dL Invalid Interpretation Code 5-40 [facility] Work Phone: Office Visit: Diabetes follo w upon 06-12-2016 Dietary management education, guidance, and counseling (procedure) yes Invalid Interpretation Code [facility] Work Phone: Documentation of current medications (procedure) Done Invalid Interpretation Code [facility] Work Phone: Fall risk assessment No Invalid Interpretation Code [facility] Work Phone: Tobacco smoking status NHIS Never Invalid Interpretation Code [facility] Work Phone: Tobacco use [facility] Never smoker Invalid Interpretation Code [facility] Work Phone: Office Visit: Follow up appo intmenton 03-18-2016 Adolescent depression screening assessment Adolescent depression screening assessment Invalid Interpretation Code [facility] Work Phone: Adult depression screening assessment Adolescent depression screening assessment Invalid Interpretation Code [facility] Work Phone: Lab Report: Judith Vickers 02-22-2016 Alanine aminotransferase (ALT) 33 U/L Invalid Interpretation Code 12-78 [facility] Work Phone: Albumin 4.0 g/dL Invalid Interpretation Code 3.4-5.0 [facility] Work Phone: Albumin/Globulin Ratio 1.1 {ratio} Invalid Interpretation Code 0.9-2.4 [facility] Work Phone: Alkaline phosphatase (ALP) 130 U/L High 45-117 [facility] Work Phone: ALP enzyme act/vol (Bld) 130 U/L High 45-117 [facility] Work Phone: Anion gap 3 mmol/L Low 5-15 [facility] Work Phone: Anion gap molar conc 3 mmol/L Low 5-[address] [facility] Work Phone: Aspartate aminotransferase (AST) 18 U/L Invalid Interpretation Code 15-37 [facility] Work Phone: Bilirubin (total) 0.30 mg/dL Invalid Interpretation Code 0.20-1.00 [facility] Work Phone: BUN/Creatinine Ratio 20.1 RATIO High 10-[address] [facility] Work Phone: Calcium 8.7 mg/dL Invalid Interpretation Code 8.5-10.1 [facility] Work Phone: Chloride 103 mmol/L Invalid Interpretation Code 98-107 [facility] Work Phone: CO2 29.0 mmol/L Invalid Interpretation Code 21.0-32.0 [facility] Endocrinology Work Phone: CO2 ppres (BldV) 29.0 mmol/L 21.0-32.0 [facility] Work Phone: Creatinine 0.85 mg/dL Invalid Interpretation Code 0.70-1.30 [facility] Work Phone: eGFR (non-black) 148 mL/min/{1.73_m2} Invalid Interpretation Code >60 [facility] Work Phone: eGFR (non-black) 122 mL/min/{1.73_m2} Invalid Interpretation Code >60 [facility] Work Phone: EST GFR - AA 148 mL/min >60 [facility] Work Phone: Globulin 3.5 g/dL Invalid Interpretation Code 2.3-3.5 [facility] Work Phone: Globulin mass conc (S) 3.5 g/dL 2.3-3.5 [facility] Work Phone: Glucose 252 mg/dL High 70-110 [facility] Work Phone: Glucose mass conc 252 mg/dL High 70-110 [facility] Work Phone: Potassium 4.0 mmol/L Invalid Interpretation Code 3.5-5.1 [facility] Work Phone: Protein 7.5 g/dL Invalid Interpretation Code 6.4-8.2 [facility] Work Phone: Sodium 135 mmol/L Low 136-145 [facility] Work Phone: Urea nitrogen 17 mg/dL Invalid Interpretation Code 7-18 [facility] Work Phone: Lab Report: Hemoglobin A1con 02-22-2016 HbA1c 10.1 % High 4.2-6.3 [facility] Work Phone: Lab Report: Microalb:Creat R atio,Random URon 02-22-2016 ACR (microalbumin/creati nine) ratio 10.4 MG/G CRE Invalid Interpretation Code <30 mg/g CRE [facility] Work Phone: Albumin/Creatinine DL <= 20 mg/L Ratio (U) 10.4 MG/G CRE <30 mg/g CRE [facility] Work Phone: Urine, creatinine 119.00 mg/dL Invalid Interpretation Code NO RANGE EST. [facility] Work Phone: Urine, microalbumin 1.24 mg/dL Invalid Interpretation Code Units converted. See lab report for original value. [facility] Work Phone: Lab Report: Thyroid Stim Hor shereen (TSH)on 02-22-2016 Thyroid stimulating hormone (TSH) 1.62 u[iU]/mL Invalid Interpretation Code 0.358-3.74 [facility] Work Phone: Office Visit: Transfer of Delia cole from [facility] 01-30-2016 Adult depression screening assessment Adult depression screening assessment Invalid Interpretation Code [facility] Work Phone: PHQ-9 quick depression assessment panel [Reported.PHQ] Adult depression screening assessment [facility] Work Phone: Rx Refill: eRx Request for F LUOXETINE HCL 20 MG TABLETon 2015 [employer] messenger refill request [id number]`FLUOXETIN E HCL 20 MG TABLET```30 Tablet`30`TAKE 1 TABLET EVERY DAY``4`0`04/08/2015` No date sent`[facility]`[id number]` [id number]``FLUOXET INE HCL 20 MG TABLET Quantity: 30 Tablet Instructions: TAKE 1 TABLET EVERY DAY [facility] Work Phone: [facility]_RR [phone]`FLUOXETIN E HCL 20 MG TABLET```30 Tablet`30`TAKE 1 TABLET EVERY DAY``4`0`04/08/2015` No date sent`[facility]`[id number]` [id number]``FLUOXET INE HCL 20 MG TABLET Quantity: 30 Tablet Instructions: TAKE 1 TABLET EVERY DAY [facility] Work Phone: Lab Report: ANTINUCLEAR ANTI BODIES DIRECTon 03-08-2015 LUIS MIGUEL Titer Negative Invalid Interpretation Code Negative [facility] Work Phone: Nuclear Ab IA Qn (S) Negative Negative [facility] Work Phone: Replaced Document: (P) Hepat itis ABC Profileon 03-07-2015 BSA (Body Surface Area) Negative Invalid Interpretation Code Negative [facility] Work Phone: COMMENT Comment Invalid Interpretation Code . [facility] Work Phone: HB CORE [id number] Negative Invalid Interpretation Code Negative [facility] Work Phone: HBV surface Ag Ql (S) Negative Negative [facility] Work Phone: HCV Ab <0.1 Invalid Interpretation Code 0.0-0.9 [facility] Work Phone: hepatitis A antibody, IgM Negative Invalid Interpretation Code Negative [facility] Work Phone: hepatitis A antibody, total Positive High Negative [facility] Work Phone: hepatitis B core antibody, IgM Negative Invalid Interpretation Code Negative [facility] Work Phone: hepatitis B core antibody, total Negative Invalid Interpretation Code Negative [facility] Work Phone: Hepatitis B surface antibody Non Reactive Invalid Interpretation Code . [facility] Work Phone: hepatitis C comment Comment Invalid Interpretation Code . [facility] Work Phone: hepatitis C virus recombinant strip immunoblot assay, confirmatory <0.1 Invalid Interpretation Code 0.0-0.9 [facility] Work Phone: Lab Report: CBC W/Diff, Auto matedon 02-28-2015 Absolute Neut 2.0 X10 3/UL Invalid Interpretation Code 2.0-7.7 [facility] Work Phone: Basophils/100 leukocytes 0.7 % Invalid Interpretation Code 0-1 [facility] Work Phone: Basophils/100 WBC (Bld) 0.7 % 0-1 [facility] Work Phone: Eosinophils/100 leukocytes 0.3 % Invalid Interpretation Code 0-5 [facility] Work Phone: Eosinophils/100 WBC (Bld) 0.3 % 0-5 [facility] Work Phone: Erythrocyte distribution width Ratio (RBC) 12.5 % 11.6-14.6 [facility] Work Phone: Erythrocyte distribution width Ratio (RBC) 39.5 fL 35.1-43.9 [facility] Work Phone: Erythrocytes (RBC) 5.36 10*6/uL Invalid Interpretation Code 4.6-6.2 [facility] Work Phone: Hematocrit (HCT) 46.5 % Invalid Interpretation Code 40-54 [facility] Work Phone: Hematocrit Volume Fraction (Bld) 46.5 % 40-54 [facility] Work Phone: Hemoglobin (HGB) 15.9 g/dL Invalid Interpretation Code 13.0-16.5 [facility] Work Phone: Immature granulocytes #/vol (Bld) 0.300 % 0.0-0.9 [facility] Work Phone: immature granulocytes, percentage of total cells, blood 0.300 % Invalid Interpretation Code 0.0-0.9 [facility] Work Phone: Immature granulocytes/100 WBC (Bld) 0.300 % Invalid Interpretation Code 0.0-0.9 [facility] Work Phone: Lymphocytes 4.23 X10 3/UL Invalid Interpretation Code 0.83-4.51 [facility] Work Phone: Lymphocytes #/vol (Bld) 4.23 X10 3/UL 0.83-4.51 [facility] Work Phone: Lymphocytes/100 leukocytes 60.3 % High 19-41 [facility] Work Phone: Lymphocytes/100 WBC (Bld) 60.3 % High 19-41 [facility] Work Phone: MCH 29.7 pg Invalid Interpretation Code 27.0-32.0 [facility] Work Phone: MCH Entitic mass (RBC) 29.7 pg 27.0-32.0 [facility] Work Phone: MCHC 34.2 G/GL Invalid Interpretation Code 32-36 [facility] Work Phone: MCHC mass conc (RBC) 34.2 G/GL 32-[address] [facility] [facility] Work Phone: MCV 86.8 fL Invalid Interpretation Code 80-94 [facility] Work Phone: MCV Entitic volume (RBC) 86.8 fL 80-94 [facility] Work Phone: Monocytes/100 leukocytes 10.5 % High 0-10 [facility] Work Phone: Monocytes/100 WBC (Bld) 10.5 % High 0-10 [facility] Work Phone: neutrophil count, blood 2.0 X10 3/UL Invalid Interpretation Code 2.0-7.7 [facility] Work Phone: Neutrophils #/vol (Bld) 2.0 X10 3/UL 2.0-7.7 [facility] Work Phone: Neutrophils/100 leukocytes 27.9 % Low 47-70 [facility] Work Phone: Neutrophils/100 WBC (Bld) 27.9 % Low 47-70 [facility] Work Phone: Platelet mean volume Entitic volume (Bld) 10.7 fL 6.2-12.0 [facility] Work Phone: Platelets 139 10*3/mm3 Low 150-450 [facility] Work Phone: Platelets #/vol (Bld) 139 10*3/mm3 Low 150-450 [facility] Work Phone: PMV by Rehan 10.7 fL Invalid Interpretation Code 6.2-12.0 [facility] Work Phone: RBC #/vol (Bld) 5.36 10*6/uL 4.6-6.2 [facility] Work Phone: RDW SD 39.5 fL Invalid Interpretation Code 35.1-43.9 [facility] Work Phone: RDW-CA 12.5 % Invalid Interpretation Code 11.6-14.6 [facility] Work Phone: red blood cell distribution width, size density 39.5 fL Invalid Interpretation Code 35.1-43.9 [facility] Work Phone: WBC #/vol (Bld) 7.0 10*3/uL 4.4-11.0 [facility] Work Phone: WBC (Leukocytes) 7.0 10*3/uL Invalid Interpretation Code 4.4-11.0 [facility] Work Phone: Vital Signs Date Time Vital Sign Value Performing Clinician Facility 08-11-2016 14:09-0400 Body Temperature 97.3 [degF] Ree Singh LPN [facility] Work Phone: 08-11-2016 14:09-0400 BP Diastolic 77 mm[Hg] Ree Singh LPN [facility] Work Phone: 08-11-2016 14:09-0400 BP Systolic 123 mm[Hg] Ree Singh LPN [facility] Work Phone: 08-11-2016 14:09-0400 Height 165.74 cm Ree Singh LPN [facility] Work Phone: 08-11-2016 14:09-0400 Pulse (Heart Rate) 75 /min Ree Singh LPN [facility] Work Phone: 08-11-2016 14:09-0400 Pulse Oximetry 98 % Ree Singh LPN [facility] Work Phone: 08-11-2016 14:09-0400 Respiratory Rate 18 /min Ree Singh LPN [facility] Work Phone: 07-31-2016 16:13-0400 BMI (Body Mass Index) 28.73 kg/m2 Glenis Alfonso NP [facility] Work Phone: 07-31-2016 16:13-0400 Body Temperature 98.2 [degF] Glenis Alfonso NP [facility] Work Phone: 07-31-2016 16:13-0400 BP Diastolic 74 mm[Hg] Glenis Alfonso NP [facility] Work Phone: 07-31-2016 16:13-0400 BP Systolic 128 mm[Hg] Glenis Alfonso NP [facility] Work Phone: 07-31-2016 16:13-0400 Height 165.74 cm Glenis Alfonso NP [facility] Work Phone: 07-31-2016 16:13-0400 Pulse (Heart Rate) 73 /min Glenis Alfonso NP [facility] Work Phone: 07-31-2016 16:13-0400 Pulse Oximetry 99 % Glenis Alfonso NP [facility] Work Phone: 07-31-2016 16:13-0400 Respiratory Rate 16 /min Glenis Alfonso NP [facility] Work Phone: 07-31-2016 16:13-0400 Weight 78.93 kg Glenis Alfonso NP [facility] Work Phone: 06-12-2016 16:14-0400 BMI (Body Mass Index) 29.13 kg/m2 Hali Chinchilla LPN [facility] Work Phone: 06-12-2016 16:14-0400 Body Temperature 98.2 [degF] Hali Chinchilla LPN [facility] Work Phone: 06-12-2016 16:14-0400 BP Diastolic 74 mm[Hg] Hali Chinchilla LPN [facility] Work Phone: 06-12-2016 16:14-0400 BP Diastolic 84 mm[Hg] Hali Chinchilla LPN [facility] Work Phone: 06-12-2016 16:14-0400 BP Systolic 126 mm[Hg] Hali Chinchilla L[facility] Work Phone: 06-12-2016 16:14-0400 BP Systolic 138 mm[Hg] Hali Chinchilla LPN [facility] Work Phone: 06-12-2016 16:14-0400 BSA (Body Surface Area) 1.88 m2 Hali Chinchilla LPN [facility] Work Phone: 06-12-2016 16:14-0400 Height 165.74 cm Hali [facility] Work Phone: 06-12-2016 16:14-0400 Pulse (Heart Rate) 93 /min Hali Bradford [facility] Work Phone: 06-12-2016 16:14-0400 Pulse Oximetry 97 % Hali [facility] Work Phone: 06-12-2016 16:14-0400 Respiratory Rate 16 /min Hali [facility] Work Phone: 06-12-2016 16:14-0400 Weight 80.01 kg Hali [facility] Work Phone: 06-12-2016 16:14-0400 Weight 80.02 kg Hali [facility] Work Phone: Encounters Encounter Date Encounter Type Care Provider Facility Start: 06-16-2024 End: 06-16-2024 ambulatory [facility] Facility:[facility] Start: 05-26-2024 End: 05-26-2024 ambulatory [facility] Facility:[facility] Start: 04-19-2024 End: 04-19-2024 [facility] Start: 03-08-2024 End: 03-08-2024 ambulatory Kristen Malys Facility:[facility] Start: 10-28-2023 End: 10-28-2023 ambulatory Kristen Malys Facility:[facility] Start: 09-16-2023 End: 09-16-2023 ambulatory Kristen Malys Facility:[facility] Start: 05-19-2022 Transcribe Orders Anjum richards MD Work Phone: [facility] Comment on above: Type 1 diabetes sylvia itus without complication (HCC) (Primary Dx) Start: 12-09-2021 Telephone encounter Adelita Brown i, MD Work Phone: Endocrinology Comment on above: [employer] Form (CGM S ensors and Transmitters) Start: 12-04-2021 Telephone encounter Adelita Brown i, MD Work Phone: Endocrinology Comment on above: [employer] Form (DWO i nsulin pump) Start: 11-07-2021 Telephone encounter Adelita Brown i, MD Work Phone: Endocrinology Comment on above: [employer] Setup Start: 11-06-2021 End: 11-06-2021 ambulatory SAGAR GARNICA Facility:[facility] Procedures Date Procedure Procedure Detail Performing Clinician Start: 07-31-2016 End: 07-31-2016 Dietary management education, guidance, and counseling Glenis Shojude CARTER Start: 05-08-2016 End: 07-10-2016 Hemoglobin A1c/Hemoglobin.total in Blood Glenis Navarrojude [employer]ADERSHIP INTERN Work Phone: Start: 05-08-2016 End: 07-10-2016 Lipid 1996 panel - Serum or Plasma Glenis Navarrojude [employer]ER[employer] INTERN Work Phone: Start: 05-08-2016 End: 07-10-2016 HbA1c Glenis Navarrojude [employer] INTERN Work Phone: Start: 05-08-2016 End: 07-10-2016 Lipid panel [AGGREGATE] Glenis Navarrojude N P Work Phone: Start: 01-30-2016 End: 02-22-2016 *CMP Complete Metabolic Panel Glenis Navarrojude [employer]ADER[employer] INTERN Work Phone: Start: 01-30-2016 End: 02-22-2016 *Microalbumin, Creatine Ratio, rand urine Glenis Navarrojude [employer]ER[employer] INTERN Work Phone: Start: 01-30-2016 End: 02-22-2016 Hemoglobin A1c/Hemoglobin.total in Blood Glenis Navarrojude [employer] INTER[employer] Work Phone: Start: 01-30-2016 End: 02-22-2016 Thyrotropin [Units/volume] in Serum or Plasma Glenis Hoyos Kaden [employer] INTERN Work Phone: Start: 01-30-2016 End: 02-22-2016 *CMP Complete Metabolic Panel Glenis Navarrojude [employer]ADERSH[employer] INTERN Work Phone: Start: 01-30-2016 End: 02-22-2016 *Microalbumin, Creatine Ratio, rand urine Glenis Navarrojude [employer]ADERSH[employer] INTERN Work Phone: Start: 01-30-2016 End: 02-22-2016 HbA1c Glenis Alfonso [employer] INTERN Work Phone: Start: 01-30-2016 End: 02-22-2016 Thyroid stimulating hormone (TSH) Glenis Alfonso [employer] Work Phone: Start: 08-16-2015 End: 08-16-2015 Hemoglobin glycosylated a1c Scar Lee DO Work Phone: Start: 08-16-2015 End: 08-16-2015 HbA1c Scar Lee DO Work Phone: Start: 08-16-2015 End: 08-16-2015 Hemoglobin glycosylated a1c Scar Lee DO Work Phone: Start: 03-02-2015 End: 03-08-2015 *LUIS MIGUEL Kristen Julian, DO Work Phone: Start: 03-02-2015 End: 03-08-2015 *[facility] HEP ABC Profile [id number] Kristen Mejiays, DO Work Phone: Start: 03-02-2015 End: 03-08-2015 *LUIS MIGUEL Kristen Zelaya Malys, DO Work Phone: Start: 03-02-2015 End: 03-08-2015 *[facility] HEP ABC Profile [id number] Kristen Mejiays, DO Work Phone: Start: 02-28-2015 End: 03-01-2015 *CBC with Differential Kristen Zelaya Malys, DO Work Phone: Start: 02-28-2015 End: 03-01-2015 *CMP Complete Metabolic Panel Kristen Garcia Mejiays, DO Work Phone: Start: 02-28-2015 End: 03-01-2015 *Microalbumin, Creatine Ratio, rand urine Kristen Garcia Julian, DO Work Phone: Start: 02-28-2015 End: 03-06-2015 Hemoglobin A1c/Hemoglobin.total in Blood Kristen Mejiays, DO Work Phone: Start: 02-28-2015 End: 03-01-2015 *CBC with Differential Kristen A Malys, DO Work Phone: Start: 02-28-2015 End: 03-01-2015 *CMP Complete Metabolic Panel Kristen Julian DO Work Phone: Start: 02-28-2015 End: 03-01-2015 *Microalbumin, Creatine Ratio, rand urine Kristen Julian DO Work Phone: Start: 02-28-2015 End: 03-06-2015 HbA1c Kristen Julian DO Work Phone: Start: 01-16-2011 End: 01-17-2011 Follow-up visit Brett Dunham MD Start: 01-16-2011 End: 01-17-2011 Follow-up visit Brett Dunham MD Plan of Treatment Date Care Activity Detail Author Start: 11-06-2022 3 comp foot exam completed DIABETIC FOOT EXAM [facility] Start: 10-17-2022 Influenza vaccination Sequential Influenza Vaccine (Season Ended) [facility] Start: 09-05-2022 End: 09-05-2022 Patient encounter procedure 09/05/2022 11:00 AM EDT Office Visit [facility] Phys[facility] [place] [address] [place] [address] Sin Goodman, PROCESS ENGINEERING INTERN [address] [place] [address] [facility] [place] Start: 05-06-2022 Hemoglobin A1c/Hemoglobin.total in Blood HBA1C [facility] Start: 02-16-2022 DEPRESSION ASSESSMENT DEPRESSION ASSESSMENT [facility] Start: 10-17-2021 Influenza vaccination INFLUENZA (#1) [facility] Start: 02-16-2021 DEPRESSION ASSESSMENT DEPRESSION ASSESSMENT [facility] Start: 07-18-2020 COVID-19 VACCINE (3 - Booster for Pfizer series) COVID-19 VACCINE (3 - Booster for Pfizer series) [facility] Start: 10-21-2016 End: 10-21-2016 Appointment [facility]ointment [facility] Work Phone: Start: 08-11-2016 End: 08-11-2016 Appointment [facility] Work Phone: Start: 08-11-2016 End: 08-11-2016 Appointment Appointment [facility] Work Phone: Start: 07-31-2016 End: 07-31-2016 Appointment [facility]ointment [facility] Work Phone: Start: 07-31-2016 End: 08-04-2016 *CMP Complete Metabolic Panel *CMP Complete Metabolic Panel [facility] Work Phone: Start: 07-31-2016 End: 08-04-2016 Hemoglobin A1c/Hemoglobin.total mass fraction (Bld) *HgA1C [facility] Work Phone: Start: 07-31-2016 End: 08-04-2016 *CMP Complete Metabolic Panel *CMP Complete Metabolic Panel [facility] Work Phone: Start: 07-31-2016 End: 08-04-2016 HbA1c *HgA1C [facility] Work Phone: Start: 06-12-2016 End: 06-12-2016 Hemoglobin A1c/Hemoglobin.total mass fraction (Bld) *HgA1C [facility] Work Phone: Start: 06-12-2016 End: 06-12-2016 Lipid panel [AGGREGATE] *Lipid Profile [facility] Work Phone: Start: 06-12-2016 End: 06-12-2016 HbA1c *HgA1C [facility] Work Phone: Start: 06-12-2016 End: 06-12-2016 Lipid panel [AGGREGATE] *Lipid Profile [facility] Work Phone: Start: 05-08-2016 End: 07-10-2016 Hemoglobin A1c/Hemoglobin.total mass fraction (Bld) *HgA1C [facility] Work Phone: Start: 05-08-2016 End: 07-10-2016 Lipid panel [AGGREGATE] *Lipid Profile [facility] Work Phone: Start: 05-08-2016 End: 07-10-2016 HbA1c *HgA1C [facility] Work Phone: Start: 05-08-2016 End: 07-10-2016 Lipid panel [AGGREGATE] *Lipid Profile [facility] Work Phone: Start: 01-30-2016 End: 02-22-2016 *CMP Complete Metabolic Panel *CMP Complete Metabolic Panel [facility] Work Phone: Start: 01-30-2016 End: 02-22-2016 *Microalbumin, Creatine Ratio, rand urine *Microalbumin, Creatine Ratio, rand urine [facility] Work Phone: Start: 01-30-2016 End: 02-22-2016 Hemoglobin A1c/Hemoglobin.total mass fraction (Bld) *HgA1C [facility] Work Phone: Start: 01-30-2016 End: 02-22-2016 Thyroid stimulating hormone (TSH) *TSH [facility] Work Phone: Start: 01-30-2016 End: 02-22-2016 *CMP Complete Metabolic Panel *CMP Complete Metabolic Panel [facility] Work Phone: Start: 01-30-2016 End: 02-22-2016 *Microalbumin, Creatine Ratio, rand urine *Microalbumin, Creatine Ratio, rand urine [facility] Work Phone: Start: 01-30-2016 End: 02-22-2016 HbA1c *HgA1C [facility] Work Phone: Start: 01-30-2016 End: 02-22-2016 Thyroid stimulating hormone (TSH) *TSH [facility] Work Phone: Start: 01-19-2016 Hepatitis C antibody, confirmatory test DILATED RETINAL EXAM [facility] Start: 03-24-2015 Hepatitis B surface antibody level LDL CHOLESTEROL [facility] Start: 03-02-2015 End: 03-08-2015 *LUIS MIGUEL *LUIS MIGUEL [facility] Work Phone: Start: 03-02-2015 End: 03-08-2015 *[facility] HEP ABC Profile [id number] *[facility] HEP ABC Profile [id number] [facility] Work Phone: Start: 03-02-2015 End: 03-02-2015 Us abdominal real time w/image limited US [facility] Work Phone: Start: 03-02-2015 End: 03-08-2015 *LUIS MIGUEL *LUIS MIGUEL [facility] Work Phone: Start: 03-02-2015 End: 03-08-2015 *[facility] HEP ABC Profile [id number] *[facility] HEP ABC Profile [id number] [facility] Work Phone: Start: 03-02-2015 End: 03-02-2015 Echo exam of abdomen [facility] Work Phone: Start: 02-28-2015 End: 03-01-2015 *CBC with Differential *CBC with Differential [facility] Work Phone: Start: 02-28-2015 End: 03-01-2015 *CMP Complete Metabolic Panel *CMP Complete Metabolic Panel [facility] Work Phone: Start: 02-28-2015 End: 03-01-2015 *Microalbumin, Creatine Ratio, rand urine *Microalbumin, Creatine Ratio, rand urine [facility] Work Phone: Start: 02-28-2015 End: 03-06-2015 Hemoglobin A1c/Hemoglobin.total mass fraction (Bld) *HgA1C [facility] Work Phone: Start: 02-28-2015 End: 03-01-2015 *CBC with Differential *CBC with Differential [facility] Work Phone: Start: 02-28-2015 End: 03-01-2015 *CMP Complete Metabolic Panel *CMP Complete Metabolic Panel [facility] Work Phone: Start: 02-28-2015 End: 03-01-2015 *Microalbumin, Creatine Ratio, rand urine *Microalbumin, Creatine Ratio, rand urine [facility] Work Phone: Start: 02-28-2015 End: 03-06-2015 HbA1c *HgA1C [facility] Work Phone: Start: 08-22-2014 Urine microalbumin profile DTAP,TDAP,TD (1 - Tdap) [facility] Start: 08-22-2013 ANNUAL PCP TEAM CHRONIC DISEASE VISIT ANNUAL PCP TEAM CHRONIC DISEASE VISIT [facility] Start: 08-22-2013 HEPATITIS C SCREENING HEPATITIS C SCREENING [facility] Start: 08-22-2013 Hepatitis C screening Hepatitis C Screening [facility] Start: 08-22-2013 HIV SCREENING HIV SCREENING [facility] Start: 01-16-2011 End: 01-17-2011 Follow-up visit Follow Up as needed [facility] Work Phone: Start: 01-16-2011 End: 01-17-2011 Follow-up visit Follow Up as needed [facility] Work Phone: Start: 08-22-2010 HIV screening HIV Screening [facility] Start: 07-10-2010 Hepatitis B screening URINE ALBUMIN:CREATININE RATIO [facility] Start: 08-22-2009 PEDS TO ADULT TRANSITION ANNUAL ASSESSMENT PEDS TO ADULT TRANSITION ANNUAL ASSESSMENT [facility] Start: 2007 Depression screening using PHQ-9 (Patient Health Questionnaire 9) score Depression Screening (PHQ-2/9) [facility] Start: 2007 PEDS TO ADULT TRANSITION INITIAL DISCUSSION PEDS TO ADULT TRANSITION INITIAL DISCUSSION [facility] Start: 08-22-2006 HPV VACCINE (1 - Male 2-dose series) HPV VACCINE (1 - Male 2-dose series) [facility] Start: 08-22-2001 PNEUMOCOCCAL (1 - PCV) PNEUMOCOCCAL (1 - PCV) [facility] Start: 08-22-1998 History and physical examination, annual for health maintenance Wellness Visit [facility] Start: 02-23-1996 COVID-19 Vaccine (#1) COVID-19 Vaccine (#1) [facility] Start: 1995 HEPATITIS B (1 of 3 - 3-dose series) HEPATITIS B (1 of 3 - 3-dose series) [facility] Start: 1995 Tetanus vaccination Tetanus: Every 10yrs [facility] Patient Education [place] [facility] Immunization Date Immunization Notes Care Provider Taylor norman 01-23-2009 novel [id number], all formulations Adelita Falk MD Work Phone: [facility] Work Phone: Payers Date Payer Category Payer Self-pay 2023 Private Health Insurance [id number] 2023 Unknown [id number] 2021 Unknown [id number] 2021 Unknown [id number] Unknown [id number] [id number] [id number] Unknown [id number] [id number] [id number] Unknown [id number] 2.16.8 [id number] Unknown [id number] 2.16.8 [id number] Unknown [id number] 2.16.8 [id number] Unknown [id number] 2.16.8 [id number] Social History Date Type Detail Facility Start: 11-06-2021 Tobacco smoking stat [facility] Never smoked tobacco [facility] Start: 11-06-2021 Tobacco use and exposure User of smo keless tobacco [facility] Start: 11-06-2021 Alcohol intake 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) [facility] Start: 1995 Sex Assigned At Not on file [facility] Start: 10-27-2021 End: 11-06-2021 Exposure to SARS-CoV-2 (event) Not sure [facility] Tobacco smoking stat [facility] Tobacco smoking consumption unknown [facility] Gender identity Not on file [facility] Medical Equipment Procedure Code Equipment Code Equipment Origin al Text Equipment Identifier Dates To use with insu jay pen once a day in case of pump malfunction Start: 11-06-2021 Comment on above: To use with insulin pen once a day in case of pump malfunction Note 12-10-2021 Telephone Encounter - Marion Escobar LPN - 12/10/2021 8:17 AM EDTTelephone Encounter - Bhupendra Rodas Ma - 12/09/2021 10:07 AM EDT Note Date & Type Note Facility 12-10-2021 Miscellaneous Notes Formattin g of this note might be different from the original. Signed [employer] form faxed, transmission OK CLOSED Form on docs desk/basket for review from [employer]. Please review and sign. Needs to be faxed to [phone]. documented in this encounter [facility] Note 12-05-2021 Telephone Encounter - Bhupendra Rodas Ma - 12/05/2021 2:51 PM EDTTelephone Encounter - Bhupendra Rogelio Eldridge - 12/04/2021 10:46 AM EDT Note Date & Type Note Facility 12-05-2021 Miscellaneous Notes Formattin g of this note might be different from the original. Form Faxed, Transmission ok Closed Form on [employer] desk/basket for review from [employer]. Please review and sign. Needs to be faxed to [phone]. Attached last office note. documented in this encounter [facility] Note 11-12-2021 Telephone Encounter - Bhupendra Rodas Ma - 11/12/2021 2:31 PM EDTTelephone Encounter - Bhupendra Rodas Ma - 11/11/2021 2:08 PM EDTTelephone Encounter - Bhupendra Rodas Ma - 11/07/2021 10:49 AM EDT Note Date [...] left VM to call back office at [phone]. Please give message below. We are trying to get patient set up with his Tandem. I reached out to the Tandem Rep names Rudy and he tried to call patient but he did not answer. Please tell patient to call Rudy at [phone]. (When we tried to download Tandem at office visit it was not connected, it was coming up as Guest. We need this corrected so we can download at next visit.) documented in this encounter [facility] Progress note 11-06-2021 Note Date & Type Note Facility 11-06-2021 Note HNO ID: [id number] Author: Adelita Falk MD Service: ? Author [...] He does not have an account with tandem and we were unable to download his [...] therapy and injections Nephropathy: Normal GFR in 2012 Neuropathy: none CVS: lipid profile 2013: Cholesterol [...] lb 12.8 oz) Height: 165.7 cm (5' 5.25") General: NAD, alert and cooperative HEENT: EOMI, [...] data because he does not have a tandem account, and does not use a CGM. [...] he will reach out to the [employer] internet sales representative via secure email to assist with obtaining Dexcom CGM for him. He will also contact [employer] and his insurance regarding that. We gave him information to contact [employer] to set up an account with them. I prescribed long-acting insulin Lantus to be used in case of pump malfunction and we went over the instructions on what to do. He would take 26 units of Lantus in case of pump malfunction, and use Humalog (more content not included)... [facility] Evaluation note Note Date & Type Note Facility Evaluation note Diagnosis Type 1 diabetes mellitus without complication (HCC)- Primary Type I (juvenile type) diabetes mellitus without mention of complication, not stated as uncontrolled documented in this encounter [facility] Summary Purpose Family History No Family History Records FoundNo Family History Records Found Advance Directives No Advanced Directives Records FoundNo Advanced Directives Records Found Reason for Referral Specialty Diagnoses / Procedures Referred By Contac t Referred To Contact Endocrinology Diagnoses Type 1 diabetes mellitus without complication (HCC) Anjum Segovia MD [address] [address] Pari Watson MD [address] [place] [id number] Referral ID Status Reason Start Date Expiration Date V isits Requested Visits Authorized [id number] Authorized 05/19/2022 05/19/2023 1 1 Additional Source Comments Source Comments (unrecognize d section and content) In the event this informatio n is protected by the Federal Confidentiality of Alcohol and Drug Abuse Patient Records regulations: The Federal rules restrict any use of the information to criminally investigate or prosecute any alcohol or drug abuse patient[facility] the event this information is protected by the Federal Confidentiality of Alcohol and Drug Abuse Patient Records regulations: The Federal rules restrict any use of the information to criminally investigate or prosecute any alcohol or drug abuse patient.[facility] the event this information is protected by the Federal Confidentiality of Alcohol and Drug Abuse Patient Records regulations: The Federal rules restrict any use of the information to criminally investigate or prosecute any alcohol or drug abuse patient.[facility] Reason for Visit (unrecogniz ed section and content) Reason Comments Tandem Setup Reason Comments [employer] Form DWO insulin pump Reason Comments [employer] Form CGM Sensors and [employer] Care Teams (unrecognized sec tion and content) [employer] Relationship Specialty Start Date End Date Sagar Garnica MD PCP - General Family Medicine 03/23/12 [employer] Relationship Specialty Start Date End Date Sagar Garnica MD PCP - General Family Medicine 03/23/12 [employer]or Relationship Specialty Start Date End Date Sagar Garnica MD PCP - General Family Medicine 03/23/12 [employer]or Relationship Specialty Start Date End Date Kristen Julian DO [address] [facility] [place] [address] PCP - General Family Medicine 05/15/22 (unrecognized sect ion and content) No Status Records FoundNo Status Records Found INFORMATION SOURCE (unrecogn ized section and content) DATE CREATED AUTHOR 04/19/2022 [facility] DATE CREATED AUTHOR AUTHOR'S YAHIR GARRIDO 08/09/2024 [facility] FOR RECORDS PERTAINING TO PATIENTS WHO ARE [...] BE BASED ON THE PRIMARY CLINICAL RECORDS. [employer] provides no warranty or guarantee of the accuracy or completeness of information in this document.
[2024-12-29 04:18] LABS: Anion Gap 9 (5-15); BUN 21 mg/dL (4-19); BUN/Creat Ratio 26.4 RATIO (10-20); Calcium,Total 9.2 mg/dL (7.6-11.0); Carbon Dioxide 27.3 mmol/L (21.0-32.0); Chloride 106 mmol/L (98-108); Estimated Creatinine Clearance 142.58 ml/min (50-250); Glucose 153 mg/dL (70-99); Potassium 3.6 mmol/L (3.3-5.1)
--- NOTE | 2024-12-29 04:51 | EDS_ITS ---
HPI History of Present Illness Chief Complaint: Flank Pain Informant: patient Narrative Narrative: Patient is a 29-year-old male with past medical history of type 1 diabetes. He states he went to bed normally and then awoke at 2:30 in the morning with sharp left-sided flank/back pain causing bouts of nausea and vomiting. He denies any recent trauma or excessive activity. He states that he has not had dysuria. He denies any recent back procedures. He states he is never experiencing Like this before and as he does not what the the pain is coming from presents for evaluation. He states his blood sugars have been running at his baseline [facility] Medical History Lipohypertrophy Presence of insulin pump Diabetes mellitus type 1, uncontrolled, insulin dependent Hepatitis H/O emotional problems High cholesterol Diabetes type 1, controlled Home Medications Medication Instructions Recorded Last Taken Type glucagon (human recombinant) 1 mg 1 mg IM ONCE 8 Unknown History injection kit (Glucagon Emergency Kit (human-recomb)) Contour Next Test Strips (blood #250 ea 05/11/18 Unkno wn Rx sugar diagnostic) flash glucose sensor (FreeStyle #2 ea 09/16/19 Unknown Rx Severiano 14 Day Sensor kit) flash glucose scanning reader #2 ea 04/09/20 Unknown R x (FreeStyle Severiano 14 Day [place]) insulin lispro 100 unit/mL See Rx Instructions subcut QDAY 05/15/23 Unknown Rx subcutaneous solution (Humalog e10.9 #30 mL U-100 Insulin) glucagon 1 mg solution for 1 mg subcut Q20M PRN hypogl ycemia 06/03/23 Unknown Rx injection (Glucagon Emergency Kit) #1 ea cholecalciferol (vitamin D3) 250 250 mcg PO QWEEK 02/17 03/12 Unknown History mcg (10,000 unit) capsule lisinopril 5 mg tablet 5 mg PO QDAY 04/19/24 Unknow n History sertraline 100 mg tablet 100 mg PO DAILY #90 tabs 06/10 Unknown Rx cephalexin 500 mg capsule 500 mg PO TID 7 days #21 cap s 12/29/24 Unknown Rx ketorolac 10 mg tablet 10 mg PO 4X/DAY PRN pain 5 d ays 12/29/24 Unknown Rx #20 tabs ondansetron 4 mg disintegrating 4 mg PO TID PRN nausea and 12/29/24 Unknown Rx tablet vomiting #21 tabs oxycodone-acetaminophen 5 mg-325 1 tab PO Q6H PRN pain 5 days #20 12/29/24 Unknown Rx mg tablet (Percocet) tabs Allergy/AdvReac Type Severity Reaction Status Date / Time No Known Allergies Allergy Verified 12/29/24 02:56 Family History Father Hypertension Chronic headaches Mother Thyroid disorder Depression Other CVA (cerebral vascular accident) Cancer Heart disease Surgical History H/O adenoidectomy History of placement of ear tubes Social History Smoking Status: Current every day smoker tobacco type: e-cigarettes second hand exposure: No alcohol intake: current alcohol intake frequency: holidays/special occasions only substance use type: does not use what type of physical activity do you participate in: none ROS ROS ED Constitutional Constitutional ED: Denies chills or fever(s) ENT ENT ED: Denies sore throat Cardiovascular Cardiovascular: Denies chest pain Respiratory/Chest Respiratory/Chest: Denies cough or dyspnea Gastrointestinal Gastrointestinal: Reports abdominal pain, nausea and vomiting; Denies diarrhea Genitourinary Genitourinary ED: Denies dysuria or hematuria Musculoskeletal Musculoskeletal: Reports back pain Integumentary Denies rash Neurologic Neurologic: Denies headache(s) Hematologic/Lymphatic Hematologic/Lymphatic: Denies easy bleeding or easy bruising EXAM Physical Exam Const Vital Signs: 12/29/24 02:54 Temperature 98.1 F Temperature Source Oral Pulse Rate 99 Respiratory Rate 22 H Blood Pressure 171/98 H Blood Pressure Mean 122 Pulse Ox 100 Oxygen Delivery Method Room Air Positive well nourished and well developed General Appearance ED: well developed; Negative for pallor HEENT HEENT Narrative: Normocephalic atraumatic Eyes PERRL and EOMs intact bilaterally General Eye ED: Negative for scleral icterus Neck supple Resp normal respiratory effort and clear to auscultation bilaterally Cardio regular rate and regular rhythm Rate: other Other Details: Heart is regular rate and rhythm Radial and carotid pulses are equal and symmetric GI non-distended and no masses GI Narrative: Abdomen is soft and nondistended with normal active bowel sounds. Patient has pain with palpation along the lateral aspect of the left abdomen without voluntary guarding or rigidity No pulsatile mass or fluid wave No peritoneal signs Auscultation: normoactive bowel sounds Palpation: soft Back/Spine Back/Spine Narrative: Positive left CVA pain noted Extremity normal to inspection Neuro oriented x3, CN's II-XII intact bilaterally and no sensory deficits noted Sensorium / Orientation: alert Motor Exam: strength 5/5 throughout Psych mental status grossly normal Skin no rashes or lesions noted and No no wounds Skin Narrative: No overlying soft tissue changes to suggest trauma or infection General Skin Exam: Negative for jaundice or pallor MDM MDM MDM Narrative Medical decision making narrative: Patient arrived to the ER hypertensive otherwise with stable vitals. He reported sudden onset of left-sided abdominal/flank pain while sleeping. He denied any recent trauma or excessive activity. But physical exam he does not have soft tissue changes suggest cellulitis or abscess or herpes zoster. His physical exam is most consistent with kidney stone. In order to assess for acute kidney injury or urosepsis/pyelonephritis basic blood work and urine sample were obtained and a noncontrast CT was ordered. Lab work revealed no sign of ALISA. Urine sample showed blood consistent with stone but no sign of infection going against urosepsis. CT scan confirmed a 3 mm stone in the distal UVJ. After receiving IV fluids and Toradol and Zofran he had complete resolution of symptoms. Therefore at this time as he does not have ALISA or urosepsis and his pain is controlled there is no need for emergent urology consultation. He will be prescribed symptomatic medications and is otherwise safe for discharge History & Record Review Discussion w/independent historian: Patient and Family Lab Data Attestation: I reviewed the patient's lab results. Labs: Laboratory Results - last 24 hr 12/29/24 12/29/24 03:12 03:58 WBC 7.4 RBC 5.22 Hgb 15.4 Hct 45.2 MCV 86.6 MCH 29.5 MCHC 34.1 RDW Std Deviation 37.6 RDW Coeff of Alondra 11.9 Plt Count 204 MPV 10.0 Immature Gran % (Auto) 0.300 Neut % (Auto) 37.7 L Lymph % (Auto) 51.1 H [place] % (Auto) 8.8 Eos % (Auto) 2.0 Baso % (Auto) 0.1 Absolute Neuts (auto) 2.8 Absolute Lymphs (auto) 3.76 Nucleated RBC % 0 Sodium Cancelled 142 Potassium Cancelled 3.6 Chloride Cancelled 106 Carbon Dioxide Cancelled 27.3 Anion Gap Cancelled 9 BUN Cancelled 21 H Creatinine Cancelled 0.78 Estim Creat Clear Calc Cancelled 142.58 Est GFR (MDRD) Non-Af Cancelled 124 BUN/Creatinine Ratio Cancelled 26.4 H Glucose Cancelled 153 H Calcium Cancelled 9.2 Urine Color Yellow Urine Clarity Clear Urine pH 5.0 Ur Specific [place] 1.030 Urine Protein 30 H Urine Glucose (UA) 250 H Urine Ketones Negative Urine Occult Blood 50 H Urine Nitrite Negative Urine Bilirubin Negative Urine Urobilinogen Normal Ur Leukocyte Esterase Negative Urine RBC 0 SEEN Urine WBC 0 SEEN Ur Squamous Epith Cells 0 SEEN Urine Bacteria RARE Urine Mucus 2+ Radiography Diagnostic Testing: Clinical Impression(s) from Imaging Studies Abdomen/Pelvis CT 12/29/24 03:20 IMPRESSION: Left distal ureteric 3 mm calculus seen just proximal to the left vesicoureteric with consequent mild proximal backpressure changes. Reading Location: [place] [address] Discharge Plan Triage Chief Complaint: Flank Pain ED Provider: Blake Ames Dx/Rx/DC Orders Clinical Impression: Kidney stone, Renal colic, Type 1 diabetes mellitus Instructions: ED Kidney Stone with Pain Prescriptions: New cephalexin 500 mg capsule 500 mg PO TID 7 Days Qty: 21 0RF ondansetron 4 mg tablet,disintegrating 4 mg PO TID PRN (Reason: nausea and vomiting) Qty: 21 0RF ketorolac 10 mg tablet 10 mg PO 4X/DAY PRN (Reason: pain) 5 Days Qty: 20 0RF oxycodone-acetaminophen [Percocet] 5-325 mg tablet 1 tab PO Q6H PRN (Reason: pain) 5 Days Qty: 20 0RF No Action glucagon (human recombinant) [Glucagon Emergency Kit (human)] 1 mg kit 1 mg IM ONCE (DME) FreeStyle Severiano 14 Day Sensor Kit See Dose Instructions .ROUTE .MEDSUPPLY Qty: 2 11RF Dose Instruction: As directed Rx Instructions: As directed (DME) FreeStyle Severiano 14 Day [place] Misc See Dose Instructions .ROUTE .MEDSUPPLY Qty: 2 11RF Dose Instruction: As directed Rx Instructions: As directed cholecalciferol (vitamin D3) 250 mcg (10,000 unit) capsule 250 mcg PO QWEEK lisinopril 5 mg tablet 5 mg PO QDAY sertraline 100 mg tablet 100 mg PO DAILY Qty: 90 1RF (DME) Contour Next Test Strips strip See Dose Instructions .ROUTE .MEDSUPPLY Qty: 250 11RF Dose Instruction: As directed Rx Instructions: use to check BG 8 x qd insulin lispro [Humalog U-100 Insulin] 100 unit/mL solution See Rx Instructions SC QDAY Qty: 30 11RF Dose Instruction: uses up to 80 units qd via pump SC QDAY Rx Instructions: DOSE - uses up to 100 units via pump SC QDAY Each vial of Insulin is 100 Units per ml. He needs 3 vials of Insulin (30 ml, 3 x 10 ml) per month. There are 10 ml in each vial making 1000 Units per vial. 3 vials would be 3000 Units per month. Glucagon Emergency Kit (human) 1 mg recon soln 1 mg subcut Q20M PRN (Reason: hypoglycemia) Qty: 1 2RF Rx Instructions: until target blood sugar attained Primary Care Provider: Kristen Julian Referrals: Luis Miguel Jett MD [[facility] Staff - Active Staff, Urology] Referral Note: Kidney stone Kristen Julian DO [Primary Care Provider, Family Practice] Activity Restrictions/Additional Instructions: Your CT scan showed a 3 mm stone just before the opening of your bladder. Stay active and well-hydrated and you should pass this spontaneously. Follow-up with urology to discuss need for further intervention such as lithotripsy or stent placement. Return to the ER should you have intractable pain despite taking your medication or develop a fever. Print Language: Korean Disposition Disposition: Home, Self Care D/C Safety Score for UGIB Assessment [place] Bleeding Score (GBS): Stratifies upper GI bleeding patients who are "low-risk" and candidates for ou tpatient management. Hemoglobin, BUN, Recent Vital Signs: Hgb 15.4 g/dL (13.0-16.5) 12/29/24 03:12 BUN 21 mg/dL (4-19) H 12/29/24 03:58 Pulse Rate 99 Blood Pressure 171/98 Score Interpretation: Score of 0: A GBS of 0 is a “Low Risk” GI bleed, and is highly sensitive (99.6% in a 2007 retrospective study) for predicting which patients did not require any “medical intervention”: blood transfusion, endoscopy, or surgery. This was confirmed in a [address] [facility] study where patients with a score of 0 were actually discharged and had no GI bleeding mortality at 6 month followup Score above 0: A GBS greater than zero suggests a “High Risk” GI bleed that is likely to require “medical intervention”: transfusion, endoscopy, or surgery. A higher GBS also correlated with a higher likelihood of needing intervention Scores >/= 6 are associated with >50% risk of needing intervention D/C Safety Score for LGIB Assessment Assessment Tool: Readmission and adverse event risk in patients with acute lower GI bleeding. Hemoglobin and Recent Vital Signs: Hgb 15.4 g/dL (13.0-16.5) 12/29/24 03:12 Pulse Rate 99 12/29/24 02:54 Blood Pressure 171/98 12/29/24 02:54 Score Interpretation: Probability Percentage of safe discharge (absence of rebleeding, blood transfusion, therapeutic intervention, 28 day readmission, or ) Score of 8 or below: Consider discharge, with appropriate precautions. Score of 9 or above: Discharge NOT recommended. Consider admission with further workup and resuscitation as necessary.
[2024-12-29 05:02] VITALS: BP 115/87; PULSE 67; RESP 18; TEMP 36.7; O2SAT 99
== END 2024-12-29 05:03 | disposition home or self-care (01) ==
PROVIDERS: Emergency Provider Emergency Medicine; PCP Family Medicine; Visit Provider Emergency Medicine
DX: N20.0 Calculus of kidney (principal); Z79.4 Long term (current) use of insulin; E10.9 Type 1 diabetes mellitus without complications; R11.2 Nausea with vomiting, unspecified; E78.00 Pure hypercholesterolemia, unspecified; Z96.41 Presence of insulin pump (external) (internal); Z79.899 Other long term (current) drug therapy; F17.290 Nicotine dependence, other tobacco product, uncomplicated
CPT/HCPCS: 74176; 80048; 81001; 85025; 96361; 96374; 96375; 99282; A4216; J2405